=== PATIENT | female | born 1940 | race Caucasian/White ===

== ENCOUNTER → 2016-12-21 | Outpatient (CLI) | payer MEDICARE, OTHER ==
[2016-12-21 13:17] LABS: Calcium 11.3 mg/dL (8.4-10.2)
== END | disposition home or self-care (01) ==
LOC: LABWHC1 12:00
PROVIDERS: ATTEND Surgery
DX: E21.3 Hyperparathyroidism, unspecified (principal)
CPT/HCPCS: 36415; 82306; 82310; 83970; 84439; 84443

== ENCOUNTER → 2016-12-26 | Outpatient (CLI) | payer MEDICARE, OTHER ==
--- NOTE | 2016-12-26 09:30 | US ---
EXAMINATION TYPE: US thyroid st tissue head/neck DATE OF EXAM: 12/26/2016 9:00 AM COMPARISON: Chest CT December 18, 2011. CLINICAL HISTORY: E21.3 hyperparathyroidism. Hyperparathyroidism GLAND SIZE: Right Lobe: 4.5 x 2.2 x 1.6 cm Overall Parenchyma: heterogenous Left Lobe: 4.0 x 1.3 x 1.7 cm Overall Parenchyma: heterogeneous Isthmus Thickness: 0.3 cm NODULES RIGHT: # of nodules measured on right: 1. 0.7 X 0.5 x 0.6 cm isoechoic solid nodule at the upper pole with well-defined margins; This nodu le is wider than tall and shows intranodular vascularity. Prior size: No prior 2. 0.7 X 0.5 x 0.6 cm isoechoic solid nodule at the mid pole with poorly defined margins; This nodul e is wider than tall and shows intranodular vascularity. Prior size: No prior LEFT: # of nodules measured on left: Small, sub-centimeter (4mm) nodule on left ISTHMUS: # of nodules measured in the isthmus: 0 TECHNOLOGIST IMPRESSION: Bilateral neck scanned, no abnormal lymphadenopathy noted/ Two nodules on r ight, small sub-centimeter (4mm) nodules on left Thyroid gland is normal in size and overall heterogeneous in appearance. 2 adjacent solid nodules in the right thyroid lobe identified measuring subcentimeter in size. Smaller nodules in left thyroid lo be are 4 mm or smaller in size. Scanning of bilateral neck shows no suspicious adenopathy. No suspici ous solid lesions are identified outside the thyroid bed. IMPRESSION: Thyroid gland is normal in size and heterogeneous appearance, but there are no greater than 1 cm la d or cystic nodules identified. No suspicious extra thyroid nodules are seen to suggest parathyroid a denoma.
--- NOTE | 2016-12-26 14:25 | NM ---
EXAMINATION TYPE: NM parathyroid w/spect DATE OF EXAM: 12/26/2016 1:19 PM COMPARISON: Same day thyroid ultrasound HISTORY: Hyperparathyroidism per order TECHNIQUE: Following administration of 22.5 mCi Tc99m Sestamibi. Anterior projection images of the neck and ches t were obtained 10 minutes and 3 hours post injection. SPECT images of the neck and chest were obtai nhung and reconstructed in three axes. FINDINGS: Thyroid tracer washout: Delayed images demonstrate complete tracer washout from the thyroid. Parathyroid uptake: None. The two-hour delayed images do not demonstrate any focal abnormal persisten t uptake in the region of the parathyroid glands to suggest parathyroid adenoma. Normal uptake: There is physiological tracer uptake in the visualized salivary glands and thyroid gla nd. IMPRESSION: Normal parathyroid imaging study. No evidence for mediastinal uptake to suggest parathyroid adenoma
== END | disposition home or self-care (01) ==
LOC: RADUSMAIN 08:40
PROVIDERS: ATTEND Surgery
DX: E21.3 Hyperparathyroidism, unspecified (principal)
CPT/HCPCS: 76536; 78071; A9500

== ENCOUNTER 2017-02-20 07:50 | Day surgery (SDC) | payer MEDICARE, MEDICAID ==
[2017-02-16 15:29] VITALS: BMI 17.7
[~2017-02-20 07:50] MED LIST: DEXAMETHASONE SOD PHOSPHATE 10 MG/ML 1 ML VIAL IV ONE; HEPARIN SODIUM,PORCINE 5,000 UNIT/ML 1 ML VIAL SQ ONE; HYDROmorphone 1 MG/ML 1 ML SYRINGE IVP PRN; LACTATED RINGERS 1,000 ML IV SCH; LIDOCAINE 1% 20 ML VIAL (10MG/ML) FOR IV START INTRADERMA PRN; MIDAZOLAM 2 MG/2 ML VIAL IV PRN; Pre Op ABX Message 1 EACH MISC MISCELLANE ONE; SCOPOLAMINE 1.5MG/72HR PATCH TRANSDERM ONE
[2017-02-20] MEDS: ONDANSETRON 4 MG/2 ML VIAL IVP ONE ×2 (08:46→12:42)
[2017-02-20] MEDS ORDERED: MIDAZOLAM 2 MG/2 ML VIAL ONE (09:23)
[2017-02-20] MEDS ORDERED: LIDOCAINE 1% INJ 10MG/ML (20 ML MDV) ONE (09:23)
[2017-02-20] MEDS ORDERED: SUCCINYLCHOLINE CHLORIDE 100 MG/5 ML SYR IV ONE (09:23)
[2017-02-20] MEDS ORDERED: fentaNYL (PF) 50 MCG/ML 2 ML AMP ONE (09:23)
[2017-02-20] MEDS ORDERED: ePHEDrine 50 MG/ML 1 ML AMP ONE (09:23)
[2017-02-20] MEDS ORDERED: PROPOFOL 10 MG/ML 20 ML VIAL IV ONE (09:23)
[2017-02-20] MEDS ORDERED: HEPARIN SODIUM,PORCINE 5,000 UNIT/ML 1 ML VIAL SQ ONE (09:24)
[2017-02-20] MEDS ORDERED: GELATIN SPONGE,ABSORB (LARGE) 1 EACH SPONGE MISCELLANE ONE (10:58)
[2017-02-20] MEDS ORDERED: THROMBIN (BOVINE) 5,000 UNIT VIAL MISCELLANE ONE (10:58)
[2017-02-20] MEDS ORDERED: LACTATED RINGERS 1,000 ML IV ONE (11:14)
--- NOTE | 2017-02-20 11:37 | P.OP ---
Date of Procedure: 02/20/17 Preoperative Diagnosis: Primary hyperparathyroidism Postoperative Diagnosis: Same right inferior pole parathyroid hyperplasia/adenoma Procedure(s) Performed: Neck exploration and resection of right inferior parathyroid gland, biopsy left inferior parathyroid, identification of bilateral superior parathyroids Anesthesia: JERARDO Surgeon: Eden Ortiz Estimated Blood Loss (ml): 5 IV fluids (ml): 850 Pathology: other (Left inferior parathyroid biopsy, right inferior parathyroid biopsy and removal of the gland) Condition: stable Disposition: PACU Indications for Procedure: Primary hyperparathyroidism with osteoporosis Operative Findings: Enlarged right inferior parathyroid gland Description of Procedure: The patient is a 76-year-old white female with a diagnosis of primary hyperparathyroidism. She has elevated calcium and parathyroid hormone. Additionally she has osteoporosis. The patient was taken to the operating room for a neck exploration possible parathyroid resection. Following induction of general anesthesia the neck was prepped and draped in a sterile fashion. The patient was placed in a modified beach chair position with some Trendelenburg. Prior to prepping and draping the patient. The nerve stimulator probes were placed. Following this after the neck and then prepped and draped in a collar incision was made. This was carried down through the skin and subcutaneous tissue as well as the platysma. Superior and inferior skin flaps were developed. The strap muscles were in the midline. The right lobe of the thyroid was approached initially. The lobe was rotated medially. It was necessary to ligate the inferior thyroid vessels in order to facilitate this. The recurrent laryngeal nerve was identified. The superior parathyroid was very small and identified. The right inferior parathyroid was enlarged and was approximately 1.5 x 2 cm in size. This was biopsied and was consistent with a hypercellular parathyroid tissue. Following this the left side of the neck was approached. The lobe was rotated medially and we were able to identify what was believed to be superior and inferior parathyroids. The inferior parathyroid was biopsied and confirmed to be parathyroid tissue. The current laryngeal nerve was identified on this side as well. The remaining parathyroids were very small and the right inferior parathyroid gland was resected. After assured that hemostasis was attained a [place] drain was placed. The strap muscles were closed in the midline. The platysma was closed with a 3- 0 Vicryl. All instrument and sponge counts were correct at the end of the case. The patient tolerated the procedure in stable condition. The skin was closed using a 4-0 Monocryl.
[2017-02-20] MEDS ORDERED: HYDROcodone/APAP 5-325MG 1 EACH TAB PO PRN (11:38)
[2017-02-20] MEDS ORDERED: NALOXONE 0.4 MG/ML 1 ML VIAL IV PRN (11:38)
[2017-02-20] MEDS ORDERED: hydrALAZINE HCL 20 MG/ML 1 ML VIAL IVP ONE (12:14)
[2017-02-20] MEDS: HYDROmorphone 1 MG/ML 1 ML SYRINGE IV PRN ×2 (18:58→22:21)
[2017-02-20] MEDS: ONDANSETRON 4 MG/2 ML VIAL IVP PRN (20:12)
[2017-02-20] MEDS: DEXTROSE 5%-0.45% NACL 1,000 ML IV SCH (21:36)
[2017-02-20] MEDS: HEPARIN SODIUM,PORCINE 5,000 UNIT/ML 1 ML VIAL SQ SCH (21:36)
[2017-02-21] MEDS: HYDROmorphone 1 MG/ML 1 ML SYRINGE IV PRN (05:30)
[2017-02-21 08:22] LABS: ALT 26 U/L (9-52); AST 19 U/L (14-36); Alkaline Phosphatase 65 U/L (38-126); Anion Gap 8 mmol/L; Blood Urea Nitrogen 24 mg/dL (7-17); Calcium 8.9 mg/dL (8.4-10.2); Carbon Dioxide 21 mmol/L (22-30); Chloride 104 mmol/L (98-107); Glucose 124 mg/dL (74-99); Non-African American GFR(MDRD) >60 (>60 ml/min/1.73 sqM); Potassium 3.9 mmol/L (3.5-5.1); Sodium 133 mmol/L (137-145); Total Bilirubin 0.6 mg/dL (0.2-1.3); Total Protein 5.5 g/dL (6.3-8.2)
[2017-02-21] MEDS: ONDANSETRON 4 MG/2 ML VIAL IVP PRN (09:45)
[2017-02-21] MEDS: HEPARIN SODIUM,PORCINE 5,000 UNIT/ML 1 ML VIAL SQ SCH ×2 (09:50→21:46)
--- NOTE | 2017-02-21 11:54 | P.PN ---
Subjective 76 year old female being seen with the attending on rounds. Patient currently is sitting up in a chair. Patient reports having nausea sensation. Patient is postop Neck exploration and resection of right inferior parathyroid gland, biopsy left inferior parathyroid, identification of bilateral superior parathyroids Indications for the procedure primary hyperparathyroidism with osteoporosis Objective - Vital Signs Vital signs: Vital Signs Temp 99.2 F 02/21/17 08:30 Pulse 82 02/21/17 08:30 Resp 24 02/21/17 08:30 BP 110/74 02/21/17 10:15 Pulse Ox 96 02/21/17 08:30 Intake & Output 02/20/17 02/21/17 02/21/17 18:59 06:59 18:59 Intake Total 9315 111 1518 Output Total 445 675 Balance 205 852 3597 Intake: IV 1200 800 Lactated Ringers 1,000 ml 800 @ 20 mls/hr IV .Q24H RUPA Rx#:[id number] Intake, IV Titration 960 Amount Dextrose 5%-0.45% NaCl 1, 960 000 ml @ 100 mls/hr IV . Q10H RUPA Rx#:[id number] Oral 150 Output: Urine 440 550 Emesis 125 Estimated Blood Loss 5 Other: Voiding Method Toilet # Voids 1 1 # Emeses 1 - Exam Physical exam Pleasant alert oriented 3 no hoarseness noted to the voice Lungs essentially clear adequate air movement on room air Heart S1-S2 audible regular Abdomen soft nontender active bowel tones reports a sensation of nausea no active emesis Extremities no edema noted Neck [place] drain removed no edema dressing dry - Labs CBC & Chem 7: 02/21/17 05:48 Labs: Abnormal Lab Results - Last 24 Hours (Table) 02/20/17 02/20/17 02/21/17 Range/Units 12:05 12:05 05:48 Sodium 133 L (137-145) mmol/L Carbon Dioxide 21 L (22-30) mmol/L BUN 24 H (7-17) mg/dL Glucose 124 H (74-99) mg/dL Calcium 10.3 H (8.4-10.2) mg/dL Total Protein 5.5 L (6.3-8.2) g/dL Albumin 3.0 L (3.5-5.0) g/dL PTH Intact <5.5 L (14.0-72.0) pg/mL Assessment and Plan Plan: Impression Primary hyperparathyroidism with osteoporosis Neck exploration and resection of right inferior parathyroid gland, biopsy left inferior parathyroid, identification of bilateral superior parathyroids done on February 20 Right inferior pole parathyroid hyperplasia/adenoma Plan Repeat a calcium at noon and 8:00 tonight notify the attending if it's less than 8.5 Await endocrinology input Continue postop surgical care Stop IV pain medication continue oral [place] Diet to be advanced as tolerated DVT and GI prophylaxis Probable discharge in the next 24 hours The above dictated assessment and findings were discussed with dr loza . Impression and the plan of care have been dictated as directed. Jena Marie nurse practitioner acting as a scribe for dr loza
--- NOTE | 2017-02-21 12:28 | P.CNEND ---
History of Present Illness Consult date: 02/21/17 History of present illness: Patient's 76-year-old female who has history of primary hyperparathyroidism and osteoporosis. She underwent neck exploration and resection of right inferior parathyroid adenoma. Patient is recovering from surgery well. Complains of mild pain in the anterior part of the neck. Patient complains of nausea Denies any numbness tingling muscle cramps. Patient is currently not taking any calcium supplementation. Review of Systems All systems: negative Constitutional: Reports as per HPI Eyes: denies blurred vision, denies pain Ears, nose, mouth and throat: Denies headache, Denies sore throat Cardiovascular: Denies chest pain, Denies shortness of breath Respiratory: Denies cough Gastrointestinal: Denies abdominal pain, Denies diarrhea, Denies nausea, Denies vomiting Genitourinary: Denies dysuria, Denies hematuria Musculoskeletal: Denies myalgias Integumentary: Denies pruritus, Denies rash Neurological: Denies numbness, Denies weakness Psychiatric: Denies anxiety, Denies depression Endocrine: Denies fatigue, Denies weight change Past Medical History Past Medical History: Hearing Disorder / Deafness, Hypertension Additional Past Medical History / Comment(s): Osteoporosis History of Any Multi-Drug Resistant Organisms: None Reported Past Surgical History: Bowel Resection, Section, Orthopedic Surgery Additional Past Surgical History / Comment(s): L elbow surgery. COLONOSCOPY Past Anesthesia/Blood Transfusion Reactions: Previous Problems w/ Anesthesia, Postoperative Nausea & Vomiting (PONV) Additional Past Anesthesia/Blood Transfusion Reaction / Comment(s): HYPER FEELING AFTER SURGERY SOMETIMES WITH ANESTHESIA Past Psychological History: No Psychological Hx Reported Smoking Status: Current every day smoker Past Alcohol Use History: Rare Past Drug Use History: None Reported Additional Drug Use History / Comment(s): Smokes 1 cigarette per day. - Past Family History Father Family Medical History: Cancer Mother Family Medical History: No Reported History Medications and Allergies Home Medications Medication Instructions Recorded Confirmed Type Alendronate Sodium 70 mg PO Q7DAYS 07/14/14 02/16/17 History Aspirin 81 mg PO DAILY 07/14/14 02/16/17 History Hydrochlorothiazide [Hydrodiuril] 12.5 mg PO DAILY 07/14/14 02/16/17 History Lisinopril [Prinivil] 5 mg PO DAILY 07/14/14 02/16/17 History Nadolol [Corgard] 20 mg PO DAILY 07/14/14 02/16/17 History Allergies Allergy/AdvReac Type Severity Reaction Status Date / Time No Known Allergies Allergy Verified 02/20/17 13:35 Physical Exam Vitals: Vital Signs Temp Pulse Pulse Resp BP BP Pulse Ox 02/21/17 10:15 110/74 158/80 02/21/17 08:30 99.2 F 82 24 96 02/21/17 02:00 98.5 F 82 20 138/68 96 02/20/17 20:50 97.6 F 82 20 148/72 95 02/20/17 17:06 97.0 F L 73 16 139/69 97 02/20/17 16:25 97 02/20/17 16:06 72 16 126/66 96 02/20/17 15:06 72 16 145/72 96 02/20/17 14:36 70 16 151/73 97 02/20/17 14:06 76 16 150/69 99 02/20/17 13:51 72 16 146/70 98 02/20/17 13:36 77 16 135/87 98 02/20/17 13:21 97.0 F L 76 16 152/73 97 02/20/17 12:45 78 16 148/67 99 02/20/17 12:30 81 16 151/62 99 02/20/17 12:22 74 16 162/73 99 Intake and Output 02/20/17 02/21/17 02/21/17 22:59 06:59 14:59 Intake Total 800 1110 Output Total 425 550 Balance 375 -550 1110 Intake: IV 800 Lactated Ringers 1,000 ml 800 @ 20 mls/hr IV .Q24H RUPA Rx#:[id number] Intake, IV Titration 960 Amount Dextrose 5%-0.45% NaCl 1, 960 000 ml @ 100 mls/hr IV . Q10H RUPA Rx#:[id number] Oral 150 Output: Urine 300 550 Emesis 125 Other: Voiding Method Toilet # Voids 1 1 # Emeses 1 - Constitutional General appearance: no acute distress - EENT Eyes: EOMI - Neck Neck: no lymphadenopathy - Respiratory Respiratory: bilateral: CTA - Cardiovascular Heart sounds: normal: S1, S2 - Gastrointestinal General gastrointestinal: no organomegaly, soft, no tenderness - Neurologic Neurologic: CNII-XII intact - Psychiatric Psychiatric: A&O x's 3, intact judgment & insight Results - Labs Result Diagrams: 02/21/17 05:48 Abnormal Lab Results - Last 24 Hours (Table) 02/20/17 02/20/17 02/21/17 Range/Units 12:05 12:05 05:48 Sodium 133 L (137-145) mmol/L Carbon Dioxide 21 L (22-30) mmol/L BUN 24 H (7-17) mg/dL Glucose 124 H (74-99) mg/dL Calcium 10.3 H (8.4-10.2) mg/dL Total Protein 5.5 L (6.3-8.2) g/dL Albumin 3.0 L (3.5-5.0) g/dL PTH Intact <5.5 L (14.0-72.0) pg/mL Diabetes panel 02/20/17 02/20/17 02/21/17 Range/Units 12:05 19:54 05:48 Sodium (137-145) mmol/L Potassium (3.5-5.1) mmol/L Chloride (98-107) mmol/L Carbon Dioxide (22-30) mmol/L BUN (7-17) mg/dL Creatinine (0.52-1.04) mg/dL Glucose (74-99) mg/dL Calcium 10.3 H 10.0 9.0 (8.4-10.2) mg/dL AST (14-36) U/L ALT (9-52) U/L Alkaline Phosphatase (38-126) U/L Total Protein (6.3-8.2) g/dL Albumin (3.5-5.0) g/dL 02/21/17 Range/Units 05:48 Sodium 133 L (137-145) mmol/L Potassium 3.9 (3.5-5.1) mmol/L Chloride 104 (98-107) mmol/L Carbon Dioxide 21 L (22-30) mmol/L BUN 24 H (7-17) mg/dL Creatinine 0.79 (0.52-1.04) mg/dL Glucose 124 H (74-99) mg/dL Calcium 8.9 (8.4-10.2) mg/dL AST 19 (14-36) U/L ALT 26 (9-52) U/L Alkaline Phosphatase 65 (38-126) U/L Total Protein 5.5 L (6.3-8.2) g/dL Albumin 3.0 L (3.5-5.0) g/dL Calcium panel 02/20/17 02/20/17 02/21/17 Range/Units 12:05 19:54 05:48 Calcium 10.3 H 10.0 9.0 (8.4-10.2) mg/dL Albumin (3.5-5.0) g/dL 02/21/17 Range/Units 05:48 Calcium 8.9 (8.4-10.2) mg/dL Albumin 3.0 L (3.5-5.0) g/dL Pituitary panel 02/20/17 02/20/17 02/21/17 Range/Units 12: 19:54 05:48 Sodium (137-145) mmol/L Potassium (3.5-5.1) mmol/L Chloride (98-107) mmol/L Carbon Dioxide (22-30) mmol/L BUN (7-17) mg/dL Creatinine (0.52-1.04) mg/dL Glucose (74-99) mg/dL Calcium 10.3 H 10.0 9.0 (8.4-10.2) mg/dL 02/21/17 Range/Units 05:48 Sodium 133 L (137-145) mmol/L Potassium 3.9 (3.5-5.1) mmol/L Chloride 104 (98-107) mmol/L Carbon Dioxide 21 L (22-30) mmol/L BUN 24 H (7-17) mg/dL Creatinine 0.79 (0.52-1.04) mg/dL Glucose 124 H (74-99) mg/dL Calcium 8.9 (8.4-10.2) mg/dL Adrenal panel 02/20/17 02/20/17 02/21/17 Range/Units 12:05 19:54 05:48 Sodium (137-145) mmol/L Potassium (3.5-5.1) mmol/L Chloride (98-107) mmol/L Carbon Dioxide (22-30) mmol/L BUN (7-17) mg/dL Creatinine (0.52-1.04) mg/dL Glucose (74-99) mg/dL Calcium 10.3 H 10.0 9.0 (8.4-10.2) mg/dL Total Bilirubin (0.2-1.3) mg/dL AST (14-36) U/L ALT (9-52) U/L Alkaline Phosphatase (38-126) U/L Total Protein (6.3-8.2) g/dL Albumin (3.5-5.0) g/dL /01/05 Range/Units 05:48 Sodium 133 L (137-145) mmol/L Potassium 3.9 (3.5-5.1) mmol/L Chloride 104 (98-107) mmol/L Carbon Dioxide 21 L (22-30) mmol/L BUN 24 H (7-17) mg/dL Creatinine 0.79 (0.52-1.04) mg/dL Glucose 124 H (74-99) mg/dL Calcium 8.9 (8.4-10.2) mg/dL Total Bilirubin 0.6 (0.2-1.3) mg/dL AST 19 (14-36) U/L ALT 26 (9-52) U/L Alkaline Phosphatase 65 (38-126) U/L Total Protein 5.5 L (6.3-8.2) g/dL Albumin 3.0 L (3.5-5.0) g/dL Assessment and Plan (1) Primary hyperparathyroidism Status: Acute Plan: Patient with history of primary hyperparathyroidism who underwent surgery and right inferior parathyroid gland was removed. Patient is recovering well from surgery except for nausea. PTH level postoperatively was less than 5 however that was in the immediate postoperative period. Patient serum calcium have been completely within normal range. Patient does not have any symptoms of hypocalcemia Since patient has severe nausea and her serum calcium levels have been normal I would recommend holding off oral calcium supplementation for now. Repeat PTH level along with calcium and albumin Patient was counseled about signs and symptoms of hypocalcemia. Thank you for letting me participate in patient care. We'll follow-up patient Time with Patient: Greater than 30
[2017-02-21] MEDS: CALCIUM CARB-VIT D 500MG-200UN 1 EACH TAB PO SCH ×2 (13:43→19:44)
[2017-02-21] MEDS: DEXTROSE 5%-0.45% NACL 1,000 ML IV SCH (13:55)
[2017-02-21] MEDS: ACETAMINOPHEN TAB 325 MG TAB PO PRN (20:16)
[2017-02-21 20:38] LABS: Calcium 9.3 mg/dL (8.4-10.2)
[2017-02-22] MEDS: DEXTROSE 5%-0.45% NACL 1,000 ML IV SCH ×3 (00:57→05:18)
[2017-02-22 02:32] VITALS: RESP 20
[2017-02-22] MEDS: ACETAMINOPHEN TAB 325 MG TAB PO PRN (05:11)
[2017-02-22] MEDS: CALCIUM CARB-VIT D 500MG-200UN 1 EACH TAB PO SCH ×2 (08:19→14:06)
[2017-02-22 08:23] VITALS: BP 122/70; PULSE 76
[2017-02-22 08:54] VITALS: TEMP 97.2
[2017-02-22] MEDS: HEPARIN SODIUM,PORCINE 5,000 UNIT/ML 1 ML VIAL SQ SCH (09:45)
--- NOTE | 2017-02-22 13:15 | P.DS ---
Providers Expected date of discharge: 02/22/17 Attending physician: Eden Ortiz Consults: 02/20/17 11:43 Consult Physician Routine Consulting Provider: Ashley Fuentes Consult Reason/Comments: Parathyroid resection hyperparathyroidism Do you want consulting provider notified?: Yes Primary care physician: [facility] Course: A 76-year-old female presented on elective basis to undergo surgery for primary hyperparathyroidism. Patient underwent neck excoriation and resection of the right inferior parathyroid adenoma. Patient does have a history of hyperparathyroidism and osteoporosis. Patient was not taking any current calcium supplements. Patient was admitted underwent the surgery on the February 20. Patient was followed by paper production engineer Dr. Fuentes. Calcium level and parathyroid levels were monitored. Postop patient did develop postop nausea which was expected and did resolve. There were no other postop events the patient was discharged on February 22 Impression Primary hyperparathyroidism with osteoporosis Neck exploration and resection of right inferior parathyroid gland, biopsy left inferior parathyroid, identification of bilateral superior parathyroids done on February 20 Right inferior pole parathyroid hyperplasia/adenoma Postop nausea vomiting expected resolved The above dictated assessment and findings were discussed with dr loza . Impression and the plan of care have been dictated as directed. Jena Marie nurse practitioner acting as a scribe for dr loza Plan - Discharge Summary New Discharge Prescriptions: Calcium Carb-Vit D 500Mg-200Un [Oscal 500+D] 1 each PO TID-W/MEALS #90 tab Discharge Medication List Alendronate Sodium 70 mg PO Q7DAYS 07/14/14 [History] Aspirin 81 mg PO DAILY 07/14/14 [History] Hydrochlorothiazide [Hydrodiuril] 12.5 mg PO DAILY 07/14/14 [History] Lisinopril [Prinivil] 5 mg PO DAILY 07/14/14 [History] Nadolol [Corgard] 20 mg PO DAILY 07/14/14 [History] Calcium Carb-Vit D 500Mg-200Un [Oscal 500+D] 1 each PO TID-W/MEALS #90 tab 02/22 [Rx] Follow up Appointment(s)/Referral(s): Eden Ortiz MD [STAFF PHYSICIAN] - 03/01/17 1:00 pm Ashley Fuentes MD [STAFF PHYSICIAN] - 03/05/17 9:00 am (You have an appointment with Dr Ashley Fuentes on Sunday, March 05, 2017 at 9:00 am.) Patient Instructions/Handouts: Parathyroidectomy (DC) Activity/Diet/Wound Care/Special Instructions: regular diet at home as tolerated, drink fluids. call office with any fever, chills,or increased pain , redness or discolored drainage from incision or any questions. If any numbness or tingling.or difficulty swallowing return to Emergency dept per Dr Ian Nunez no Strenuous activity. Take 1 tab of Oscal three times a day per Dr Fuentes until parathyroid level comes back, Dr will contact you. Discharge Disposition: HOME SELF-CARE
== END 2017-02-22 13:59 | disposition home or self-care (01) ==
LOC: OR 07:50 → 6PED 11:27 → OR 02-22 13:59
PROVIDERS: ATTEND Surgery
DX: D35.1 Benign neoplasm of parathyroid gland (principal); E21.0 Primary hyperparathyroidism; M81.0 Age-related osteoporosis without current pathological fracture; I10 Essential (primary) hypertension; F17.210 Nicotine dependence, cigarettes, uncomplicated; Z79.82 Long term (current) use of aspirin; Z79.899 Other long term (current) drug therapy
CPT/HCPCS: 88305; 80053; 82040; 82310 ×3; 88331; 83970 ×2; 60500; J2250; J0360; J1644 ×3; J1100; J2405 ×2; J2001; J3010; J1170 ×2; J0330; J2704

== ENCOUNTER → 2017-03-05 | Outpatient (CLI) | payer MEDICARE, MEDICAID ==
[2017-03-05 11:13] LABS: ALT 29 U/L (9-52); AST 20 U/L (14-36); Alkaline Phosphatase 82 U/L (38-126); Anion Gap 10 mmol/L; Blood Urea Nitrogen 35 mg/dL (7-17); Calcium 10.8 mg/dL (8.4-10.2); Carbon Dioxide 27 mmol/L (22-30); Chloride 99 mmol/L (98-107); Glucose 91 mg/dL (74-99); Non-African American GFR(MDRD) >60 (>60 ml/min/1.73 sqM); Potassium 4.7 mmol/L (3.5-5.1); Sodium 136 mmol/L (137-145); Total Bilirubin 0.6 mg/dL (0.2-1.3); Total Protein 6.6 g/dL (6.3-8.2)
== END | disposition home or self-care (01) ==
LOC: LABWHC1 10:12
PROVIDERS: ATTEND Internal Medicine Endocrinology, Diabetes & Metabolism
DX: E21.0 Primary hyperparathyroidism (principal); M81.8 Other osteoporosis without current pathological fracture
CPT/HCPCS: 36415; 80053; 82306; 83970; 84443

== ENCOUNTER → 2017-04-05 | Outpatient (CLI) | payer MEDICARE, MEDICAID ==
[2017-04-05 09:33] LABS: ALT 29 U/L (9-52); AST 21 U/L (14-36); Alkaline Phosphatase 74 U/L (38-126); Anion Gap 10 mmol/L; Blood Urea Nitrogen 27 mg/dL (7-17); Calcium 9.5 mg/dL (8.4-10.2); Carbon Dioxide 24 mmol/L (22-30); Chloride 102 mmol/L (98-107); Glucose 82 mg/dL (74-99); Non-African American GFR(MDRD) >60 (>60 ml/min/1.73 sqM); Potassium 4.3 mmol/L (3.5-5.1); Sodium 136 mmol/L (137-145); Total Bilirubin 0.6 mg/dL (0.2-1.3); Total Protein 6.7 g/dL (6.3-8.2)
== END | disposition home or self-care (01) ==
LOC: LABWHC1 08:13
PROVIDERS: ATTEND Internal Medicine Endocrinology, Diabetes & Metabolism
DX: E21.0 Primary hyperparathyroidism (principal); M81.8 Other osteoporosis without current pathological fracture
CPT/HCPCS: 36415; 80053; 82306; 83970; 84443

== ENCOUNTER → 2017-07-17 | Outpatient (CLI) | payer MEDICARE, MEDICAID ==
--- NOTE | 2017-07-17 11:20 | MM ---
Reason for exam: screening (asymptomatic). Last mammogram was performed 1 year and 1 month ago. History: Patient is postmenopausal. Took estrogen for 6 years. Took progesterone for 6 years. Physical Findings: A clinical breast exam by your physician is recommended on an annual basis and results should be correlated with mammographic findings. MG Screening Mammo w CAD Bilateral CC and MLO view(s) were taken. Prior study comparison: June 14, 2016, bilateral MG screening mammo w CAD. May 22, 2014, bilateral MG screening mammo w CAD. The breast tissue is extremely dense which could obscure a lesion on mammography. Finding: There are typically benign vascular, round calcifications in both breasts. There is no discrete abnormality. ASSESSMENT: Benign, BI-RAD 2 RECOMMENDATION: Routine screening mammogram of both breasts in 1 year.
== END | disposition home or self-care (01) ==
LOC: RADMAMWWP 07:33
PROVIDERS: ATTEND Internal Medicine
DX: Z12.31 Encounter for screening mammogram for malignant neoplasm of breast (principal)

== ENCOUNTER → 2018-04-11 | Outpatient (CLI) | payer MEDICARE, MEDICAID ==
[2018-04-11 11:22] LABS: Albumin 4.1 g/dL (3.5-5.0); Calcium 9.8 mg/dL (8.4-10.2); Potassium 4.6 mmol/L (3.5-5.1); Total Bilirubin 0.5 mg/dL (0.2-1.3); Total Protein 6.5 g/dL (6.3-8.2)
[2018-04-11 16:17] LABS: Vitamin D 25 Hydroxy 50.1 ng/mL (30.0-100.0)
[2018-04-11 17:01] LABS: Parathyroid Hormone Intact 35.3 pg/mL (14.0-72.0)
== END | disposition home or self-care (01) ==
LOC: LABWHC1 10:09
PROVIDERS: ATTEND Internal Medicine Endocrinology, Diabetes & Metabolism
DX: E21.0 Primary hyperparathyroidism (principal)
CPT/HCPCS: 36415; 80053; 82306; 83970

== ENCOUNTER → 2018-07-31 | Outpatient (CLI) | payer MEDICARE, MEDICAID ==
--- NOTE | 2018-08-01 08:55 | MM ---
Reason for exam: screening (asymptomatic). Last mammogram was performed 1 year ago. History: Patient is postmenopausal. Took estrogen for 6 years. Took progesterone for 6 years. Physical Findings: A clinical breast exam by your physician is recommended on an annual basis and results should be correlated with mammographic findings. MG Screening Mammo w CAD Bilateral CC and MLO view(s) were taken. Prior study comparison: July 17, 2017, bilateral MG screening mammo w CAD. June 14, 2016, bilateral MG screening mammo w CAD. The breast tissue is extremely dense which could obscure a lesion on mammography. There are benign appearing round calcifications bilaterally. No suspicious abnormality. No significant changes when compared with prior studies. ASSESSMENT: Benign, BI-RAD 2 RECOMMENDATION: Routine screening mammogram of both breasts in 1 year.
== END | disposition home or self-care (01) ==
LOC: RADMAMWWP 08:14
PROVIDERS: ATTEND Internal Medicine
DX: Z12.31 Encounter for screening mammogram for malignant neoplasm of breast (principal)
CPT/HCPCS: 77067

== ENCOUNTER → 2020-11-12 | Outpatient (CLI) | payer MEDICARE, MEDICAID ==
--- NOTE | 2020-11-15 09:30 | MM ---
Reason for exam: screening (asymptomatic). Last mammogram was performed 2 years and 3 months ago. History: Patient is postmenopausal. Took estrogen for 6 years. Took progesterone for 6 years. Physical Findings: A clinical breast exam by your physician is recommended on an annual basis and results should be correlated with mammographic findings. MG Screening Mammo w CAD Bilateral CC and MLO view(s) were taken. Prior study comparison: July 31, 2018, bilateral MG screening mammo w CAD. July 17, 2017, bilateral MG screening mammo w CAD. The breast tissue is extremely dense which could obscure a lesion on mammography. Stable benign calcifications. There is chronic nodularity bilaterally. There is no dominant lesion. No significant changes when compared with prior studies. ASSESSMENT: Benign, BI-RAD 2 RECOMMENDATION: Routine screening mammogram of both breasts in 1 year.
== END | disposition home or self-care (01) ==
LOC: RADMAMWWP 09:14
PROVIDERS: ATTEND Family Medicine
DX: Z12.31 Encounter for screening mammogram for malignant neoplasm of breast (principal)
CPT/HCPCS: 77067

== ENCOUNTER → 2022-05-01 | Outpatient (CLI) | payer MEDICARE, MEDICAID ==
--- NOTE | 2022-05-01 14:12 | BD ---
EXAMINATION TYPE: Axial Bone Density DATE OF EXAM: 05/01/2022 COMPARISON: 06/14/2016 CLINICAL HISTORY: 81 years year old Female. ICD-10 CODE: M81.0 Age related osteoporosis Height: 58.5 IN Weight: 92 LBS FRAX RISK QUESTIONS: Current Tobacco Use: YES RISK FACTORS HISTORY OF: Family History of Osteoporosis: YES MOTHER Active: MODERATE Postmenopausal woman: AGE 60 Take estrogen and/or progesterone medications: NOT NOW How long: AGE 60-65 Lost more than 2 inches in height since high school: YES 10/23" MEDICATIONS: Additional Medications: VIT D, BLOOD PRESSURE MEDS, CHOLESTEROL MEDS, LOW DOSE ASPIRIN Additional History: EXAM MEASUREMENTS: Bone mineral densitometry was performed using the ZIRX System. Bone mineral density as measured about the Lumbar spine is: ----- L1-L4(G/cm2): 1.816 T Score Values are as follows: ----- L1: 4.5 ----- L2: 5.9 ----- L3: 5.7 ----- L4: 5.2 ----- L1-L4: 5.3 Bone mineral density has: Increased 5.3% since study of: 06/14/2016 Bone mineral density about the R hip (g/cm2): 0.788 Bone mineral density about the L hip (g/cm2): 0.794 T Score values are as follows: -----R Neck: -1.8 -----L Neck: -1.8 -----R Total: -2.0 -----L Total: -2.1 Bone mineral density has: Decreased -3.7% since study of: 06/14/2016 FRAX%s: The graph provided illustrates a 12.6 chance for a major osteoporotic fx and a 5.6 chance for the hips probability for fx in 10 years time. IMPRESSION: Osteopenia (T Score between -2.5 and -1) remains present. There is slightly increased risk of fracture and the patient may be considered for treatment. Re-Screen 2-5 years. NOTE: T-SCORE=SD OF THE YOUNG ADULT MEAN.
== END | disposition home or self-care (01) ==
LOC: RADBDWWP 12:23
PROVIDERS: ATTEND Internal Medicine
DX: M85.89 Other specified disorders of bone density and structure, multiple sites (principal); Z78.0 Asymptomatic menopausal state
CPT/HCPCS: 77080

== ENCOUNTER → 2022-09-01 | Day surgery (SDC) | payer MEDICARE, MEDICAID ==
[~2022-09-01] MED LIST changes: +ALPRAZolam 0.25 MG TAB PO PRN; +ALPRAZolam 0.5 MG TAB PO PRN; +ASPIRIN 325 MG TAB PO PRN; -DEXAMETHASONE SOD PHOSPHATE 10 MG/ML 1 ML VIAL IV ONE; +HEPARIN SODIUM 1,000 UN/ML (10ML VL) IV ONE; +HEPARIN SODIUM,PORCINE 10,000 UNIT in SODIUM CHLORIDE 0.9% 1,000 ML IRRIGATION PRN; +HEPARIN SODIUM,PORCINE 2,500 UNIT in SODIUM CHLORIDE 0.9% 250 ML IRRIGATION PRN; -HEPARIN SODIUM,PORCINE 5,000 UNIT/ML 1 ML VIAL SQ ONE; -HYDROmorphone 1 MG/ML 1 ML SYRINGE IVP PRN; +IOPAMIDOL-370 100ML BTL INJ ONE; -LACTATED RINGERS 1,000 ML IV SCH; -LIDOCAINE 1% 20 ML VIAL (10MG/ML) FOR IV START INTRADERMA PRN; +LIDOCAINE 1% INJ 10MG/ML (30 ML VIAL-PF) SQ ONE; +MIDAZOLAM 2 MG/2 ML VIAL IV ONE; -MIDAZOLAM 2 MG/2 ML VIAL IV PRN; -Pre Op ABX Message 1 EACH MISC MISCELLANE ONE; -SCOPOLAMINE 1.5MG/72HR PATCH TRANSDERM ONE; +SODIUM CHLORIDE 0.9% 1,000 ML in EMPTY BAG 1 BAG IV ONE; +VERAPAMIL SYRINGE (5 MG/10 ML) INTRAARTER ONE; +ZOLPIDEM 5 MG TAB PO PRN; +fentaNYL (PF) 50 MCG/ML 2 ML AMP IV ONE
[2022-09-01 08:49] VITALS: RESP 16; TEMP 98.2
--- NOTE | 2022-09-01 12:19 | IR ---
EXAMINATION TYPE: IR angio abdominal w runoff DATE OF EXAM: 09/01/2022 COMPARISON: NONE HISTORY: Fluoroscopy time. Fluoroscopy was provided to the referring clinician.
[2022-09-01 16:02] VITALS: PULSE 70
[2022-09-01 16:10] VITALS: BP 86/54
--- NOTE | 2022-09-01 21:39 | P.OP ---
Description of Procedure: PROCEDURES PERFORMED: Abdominal angiography with bilateral runoff INDICATION: [facility] class 3 claudication, abnormal ultrasound/ALFIE CONSENT:I have discussed the risks, benefits and alternative therapies for the above-mentioned procedure and for both sedation/analgesia as well as necessary blood product administration, if indicated, as they pertain to this patient. The patient has indicated understanding and acceptance of the risks and procedures discussed. PROCEDURE: After the risks, benefits and alternatives of the above mentioned procedure explained in detail with the patient, informed consent was obtained. Patient was taken to the catheterization lab and prepped and draped in usual fashion. 1% lidocaine was used to anesthetize the right radial area. A 5- Kyrgyz sheath was placed in the right radial artery using modified Seldinger technique. A 5-Kyrgyz pigtail catheter was inserted to the abdominal aorta and DSA imaging was obtained. Patient tolerated the diagnostic portion well. The patient tolerated the procedure well. TR band was placed and sheath removed. Patient was transported back to the post catheterization holding area in stable condition. Conscious Sedation: Patient was monitored under the direct supervision of vision of myself for conscious sedation using Versed and fentanyl for a total duration of 25 minutes HEMODYNAMICS: Ao: 134/77 Abdominal aorta: The abdominal aorta has mild calcifcation and mild narrowing/ 30% stenosis of the infrarenal aorta. Renal arteries are patent. There is no significant aneurysm. Right lower extremity: Right common iliac artery: There is 100% proximal common iliac stenosis. Right external iliac artery: There is 100% stenosis. Right internal iliac artery: There is no significant stenosis. Right common femoral artery: There is what appears to be 100% right common femoral artery stenosis. Right profunda: There is no significant stenosis. Right SFA: There is no significant stenosis however SFA appears to be very small caliber. Right popliteal artery: There is no significant stenosis. Right tibioperoneal trunk: There is no significant stenosis. Right anterior tibial artery: There is no significant stenosis. Right porterior tibial artery: There is no significant stenosis. Right peroneal artery: There is no significant stenosis. Left lower extremity: Left common iliac artery: There is 90% proximal left common iliac stenosis. Left external iliac artery: The external iliac artery is normal. Left internal iliac artery: There is no significant stenosis. Left common femoral artery: There is no significant stenosis. Left profunda: There is no significant stenosis. Left SFA: There is no significant stenosis. Left popliteal artery: There is no significant stenosis. Left tibioperoneal trunk: There is no significant stenosis. Right anterior tibial artery: There is no significant stenosis. Right porterior tibial artery: There is no significant stenosis. Right peroneal artery: There is no significant stenosis. FINAL IMPRESSION: 1. 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 Somewhat sluggish flow of the distal aorta with some 30% narrowing. Rule out a descending dissection. PLAN: 1. Aggressive risk factor modification per most recent ACC/AHA guidelines. 2. Extensive heavily calcified inflow disease which appears better treated by surgical route. 3. Consider ultrasound abdomen to rule out dissection given some sluggish flow and some narrowing of the infrarenal aorta. Evaluate for any thrombus or dissection.
== END ==
LOC: CATHCVL 08:06
PROVIDERS: ATTEND Internal Medicine
DX: I73.9 Peripheral vascular disease, unspecified (principal); I70.8 Atherosclerosis of other arteries; I10 Essential (primary) hypertension; E78.5 Hyperlipidemia, unspecified; I44.7 Left bundle-branch block, unspecified; F17.210 Nicotine dependence, cigarettes, uncomplicated; Z79.82 Long term (current) use of aspirin
CPT/HCPCS: 36200; 75625; 75716; C1769 ×5; C1894 ×3; J2250; J2001; J3010; J1644; Q9967

== ENCOUNTER 2023-01-05 09:50 | Observation (INO) | payer MEDICARE, MEDICAID ==
[2023-01-05] MEDS ORDERED: ACETAMINOPHEN TAB 325 MG TAB PO STA (10:27)
[2023-01-05] MEDS ORDERED: ONDANSETRON 4 MG/2 ML VIAL IVP STA (10:58)
--- NOTE | 2023-01-05 11:00 | US ---
EXAMINATION TYPE: US venous doppler duplex LE LT DATE OF EXAM: 01/05/2023 10:54 AM COMPARISON: NONE CLINICAL HISTORY: pain. Pain SIDE PERFORMED: Left TECHNIQUE: The lower extremity deep venous system is examined utilizing real time linear array sonog june with graded compression, doppler sonography and color-flow sonography. VESSELS IMAGED: Common Femoral Vein Deep Femoral Vein Greater Saphenous Vein * Femoral Vein Popliteal Vein Small Saphenous Vein * Proximal Calf Veins (* superficial vessels) Left Leg: Negative for DVT IMPRESSION: Grayscale, color doppler, spectral doppler imaging performed of the deep veins of the lo wer extremities. There is normal flow, compressibility, vascular waveforms.
[2023-01-05 11:33] LABS: Basophils % (A) 1 %; Eosinophils # (A) 0.1 k/uL (0-0.7); Eosinophils % (A) 1 %; HCT 35.1 % (34.0-46.0); HGB 12.1 gm/dL (11.4-16.0); Lymphocytes # (A) 0.9 k/uL (1.0-4.8); Lymphocytes % (A) 13 %; MCH 32.3 pg (25.0-35.0); MCHC 34.4 g/dL (31.0-37.0); MCV 93.9 fL (80.0-100.0); Mean Platelet Volume 8.1; Monocytes # (A) 0.4 k/uL (0-1.0); Monocytes % (A) 6 %; Neutrophils # (A) 5.7 k/uL (1.3-7.7); Neutrophils % (A) 77 %; Platelet Count 196 k/uL (150-450); RBC 3.74 m/uL (3.80-5.40); RDW 14.8 % (11.5-15.5); WBC 7.4 k/uL (3.8-10.6)
[2023-01-05 11:56] LABS: Albumin 3.7 g/dL (3.5-5.0); Calcium 8.8 mg/dL (8.4-10.2); Total Bilirubin 0.4 mg/dL (0.2-1.3); Total Protein 6.1 g/dL (6.3-8.2)
[2023-01-05 12:13] LABS: Appearance,Urine Clear (Clear); Bilirubin,Urine Negative (Negative); Blood,Urine Trace (Negative); Color,Urine Light Yellow; Glucose,Urine (UA) Negative (Negative); Ketones,Urine Negative (Negative); Leukocyte Esterase,Urine Moderate (Negative); Mucus,Urine Rare /hpf; Nitrite,Urine Negative (Negative); PH, Urine 6.5 (5.0-8.0); Protein,Urine 1+ (Negative); RBC,Urine 6 /hpf (0-5); Specific Gravity,Urine 1.011 (1.001-1.035); Squamous Epithelial Cell,Urine 1 /hpf (0-4); Urobilinogen,Urine <2.0 mg/dL (<2.0); WBC,Urine 7 /hpf (0-5)
[2023-01-05] MEDS ORDERED: CEPHALEXIN 250 MG CAP PO STA (12:16)
--- NOTE | 2023-01-05 12:27 | ED ---
Extremity Problem HPI - General Chief complaint: Extremity Problem,Nontraumatic Stated complaint: lt leg pain & edema Time Seen by Provider: 01/05/23 10:08 Source: patient Mode of arrival: ambulatory Limitations: no limitations - History of Present Illness Initial comments: Patient is an 82-year-old female who presents to the emergency departments for bilateral lower extremity pain. Patient has history of extensive PAD she follows with Dr. Parr who referred her to [facility] where she sees a vascular surgeon. Patient states she saw her surgeon about one month ago who told her he would not be doing any surgical intervention and he recommended medical management. Patient started on Xarelto. Patient reports increased pain in her extremities making it difficult to ambulate. She denies injury. Pain is worse in the left leg. She reports numbness in her left foot which is new. Patient also complains of lower abdominal burning that also started this week. She denies chest pain, shortness of breath, nausea, vomiting, burning with ur ination, blood in the urine.. - Related Data Home Medications Medication Instructions Recorded Confirmed Aspirin 81 mg PO DAILY 07/14/14 01/05/23 Lisinopril [Prinivil] 5 mg PO BID 07/14/14 01/05/23 nadoloL [Corgard] 20 mg PO Q48H 07/14/14 01/05/23 Cholecalciferol [Vitamin D3 (25 25 mcg PO DAILY 08/29/22 01/05/23 Mcg = 1000 Iu)] ALPRAZolam [Xanax] 0.25 mg PO DAILY PRN 01/05/23 01/05/23 Rivaroxaban [Xarelto] 2.5 mg PO BID 01/05/23 01/05/23 Simvastatin [Zocor] 40 mg PO HS 01/05/23 01/05/23 cilostazoL [Cilostazol] 50 mg PO DAILY@1200 01/05/23 01/05/23 Previous Rx's Medication Instructions Recorded Cephalexin [Keflex] 250 mg PO Q6HR #20 cap 01/05/23 Allergies Allergy/AdvReac Type Severity Reaction Status Date / Time No Known Allergies Allergy Verified 01/05/23 12:13 Review of Systems ROS Statement: Those systems with pertinent positive or pertinent negative responses have been documented in the HPI. ROS Other: All systems not noted in ROS Statement are negative. Past Medical History Past Medical History: Hearing Disorder / Deafness, Hypertension Additional Past Medical History / Comment(s): Osteoporosis History of Any Multi-Drug Resistant Organisms: None Reported Past Surgical History: Bowel Resection, Section, Orthopedic Surgery Additional Past Surgical History / Comment(s): L elbow surgery. COLONOSCOPY Past Anesthesia/Blood Transfusion Reactions: Previous Problems w/ Anesthesia, Postoperative Nausea & Vomiting (PONV) Additional Past Anesthesia/Blood Transfusion Reaction / Comment(s): HYPER FEELING AFTER SURGERY SOMETIMES WITH ANESTHESIA Past Psychological History: No Psychological Hx Reported Smoking Status: Former smoker Past Alcohol Use History: None Reported Past Drug Use History: None Reported - Past Family History Father Family Medical History: Cancer Mother Family Medical History: No Reported History General Exam Limitations: no limitations General appearance: alert, in no apparent distress Respiratory exam: Present: normal lung sounds bilaterally. Absent: respiratory distress, wheezes, rales, rhonchi, stridor Cardiovascular Exam: Present: regular rate, normal rhythm, normal heart sounds. Absent: systolic murmur, diastolic murmur, rubs, gallop, clicks GI/Abdominal exam: Present: soft, normal bowel sounds. Absent: distended, tenderness, guarding, rebound, rigid Extremities exam: Present: other (bilateral lower extremities normal in color. Left foot cold to touch. DP pulses absent bilaterally. Full range of motion. No sensory deficit). Absent: calf tenderness Neurological exam: Present: alert, oriented X3, CN II-XII intact Psychiatric exam: Present: normal affect, normal mood Skin exam: Present: warm, dry, intact, normal color. Absent: rash Course Vital Signs 01/05/23 01/05/23 09:59 12:05 Temperature 98 F Pulse Rate 86 81 Respiratory 18 18 Rate Blood Pressure 116/80 163/81 O2 Sat by Pulse 100 96 Oximetry Medical Decision Making - Medical Decision Making EKG taken at 11:21, intermittent by me Sinus rhythm, left atrial enlargement, left axis deviation, left bundle branch block Ventricular rate 70, WI interval 209, QRS duration 148, QTc 475 Was pt. sent in by a medical professional or institution (, PA, TANK CAR REPAIRER, urgent care, hospital, or [facility]...) When possible be specific @ -No Did you speak to anyone other than the patient for history (EMS, parent, family, police, friend...)? What history was obtained from this source @ -No Did you review nursing and triage notes (agree or disagree)? Why? @ -Yes, reviewed abdominal angiogram from August which showed 100% right common iliac artery stenosis a 90% left common iliac stenosis with sluggish flow the distal aorta for 30% narrowing Were old charts reviewed (outside hosp., previous admission, EMS record, old EKG, old radiological studies, urgent care reports/EKG's, [facility] records)? Report findings @ -No old charts were reviewed Differential Diagnosis (chest pain, altered mental status, abdominal pain women, abdominal pain men, vaginal bleeding, weakness, fever, dyspnea, syncope, headache, dizziness, GI bleed, back pain, seizure, CVA, palpatations, mental health)? @ -PAD, aortic dissection DVT, AAA EKG interpreted by me (3pts min.). @ -As above X-rays interpreted by me (1pt min.). @ -None done CT interpreted by me (1pt min.). @ -Yes, CT angiogram of the abdomen and pelvis significant for possible gallbladder wall thickening. Patient does not have abdominal pain in his region. There is no dissection. There is a fusiform infrarenal abdominal aortic aneurysm spinning 7.6, upper portion is aneurysmal up to 4.1 cm and lower portion is aneurysmal up to 3 cm. The patent lumen is severely narrowed down to 3 mm U/S interpreted by me (1pt. min.). @ -[No. Ultrasound report the left lower extremity shows no DVT. What testing was considered but not performed or refused? (CT, X-rays, U/S, labs)? Why? @ -None What meds were considered but not given or refused? Why? @ -None Did you discuss the management of the patient with other professionals (professionals i.e. , PA, TANK CAR REPAIRER, lab, RT, psych nurse, renal social worker, head refrigeration engineer, teacher, asset protection officer, case supervisor)? Give summary @ -Yes, Dr. Becerra who declined admission but will be consulted Was smoking cessation discussed for >3mins.? @ -No Was critical care preformed (if so, how long)? @ -No Were there social determinants of health that impacted care today? How? (Homelessness, low income, unemployed, alcoholism, drug addiction, transportation, low edu. Level, literacy, decrease access to med. care, correction, rehab)? @ -No Was there de-escalation of care discussed even if they declined (Discuss DNR or withdrawal of care, Hospice)? DNR status @ -No What co-morbidities impacted this encounter? (DM, HTN, Smoking, COPD, CAD, Cancer, CVA, ARF, Chemo, Hep., AIDS, mental health diagnosis, sleep apnea, morbid obesity)? @ -None Was patient admitted / discharged? Hospital course, mention meds given and route, prescriptions, significant lab abnormalities, going to OR and other pertinent info. @ -Patient presenting for lower extremity pain and abdominal burning. Patient has chronic bilateral common iliac occlusion. No signs of acute limb ischemia. CT angiogram of the abdomen and pelvis shows an abdominal aortic aneurysm with a severely narrowed lumen. Urinalysis is concerning for urinary tract infection. Patient given Keflex. Patient will be admitted Dr. Adan who accepts admission. Vascular surgery on consult Undiagnosed new problem with uncertain prognosis? @ -No Drug Therapy requiring intensive monitoring for toxicity (Heparin, Nitro, Insulin, Cardizem)? @ -No Were any procedures done? @ -No Diagnosis/symptom? @ -PAD, AAA Acute, or Chronic, or Acute on Chronic? @ -acute Uncomplicated (without systemic symptoms) or Complicated (systemic symptoms)? @ -uncomplicated Side effects of treatment? @ -No Exacerbation, Progression, or Severe Exacerbation? @ -No Poses a threat to life or bodily function? How? (Chest pain, [place], [place], pneumonia, PE, COPD, DKA, ARF, appy, cholecystitis, CVA, Diverticulitis, Homicidal, Suicidal, threat to staff... and all critical care pts) @ -No Dr. gill is my attending - Lab Data Result diagrams: 01/05/23 10:58 01/05/23 10:58 Lab Results 01/05/23 01/05/23 01/05/23 Range/Units 10:58 10:58 10:58 WBC 7.4 (3.8-10.6) k/uL RBC 3.74 L (3.80-5.40) m/uL Hgb 12.1 (11.4-16.0) gm/dL Hct 35.1 (34.0-46.0) % MCV 93.9 (80.0-100.0) fL MCH 32.3 (25.0-35.0) pg MCHC 34.4 (31.0-37.0) g/dL RDW 14.8 (11.5-15.5) % Plt Count 196 (150-450) k/uL MPV 8.1 Neutrophils % 77 % Lymphocytes % 13 % Monocytes % 6 % Eosinophils % 1 % Basophils % 1 % Neutrophils # 5.7 (1.3-7.7) k/uL Lymphocytes # 0.9 L (1.0-4.8) k/uL Monocytes # 0.4 (0-1.0) k/uL Eosinophils # 0.1 (0-0.7) k/uL Basophils # 0.0 (0-0.2) k/uL Sodium 134 L (137-145) mmol/L Potassium 4.0 (3.5-5.1) mmol/L Chloride 101 (98-107) mmol/L Carbon Dioxide 25 (22-30) mmol/L Anion Gap 8 mmol/L BUN 23 H (7-17) mg/dL Creatinine 0.75 (0.52-1.04) mg/dL Est GFR (CKD-EPI)AfAm 86 (>60 ml/min/1.73 sqM) Est GFR (CKD-EPI)NonAf 75 (>60 ml/min/1.73 sqM) Glucose 106 H (74-99) mg/dL Calcium 8.8 (8.4-10.2) mg/dL Total Bilirubin 0.4 (0.2-1.3) mg/dL AST 33 (14-36) U/L ALT 31 (4-34) U/L Alkaline Phosphatase 53 (38-126) U/L Total Protein 6.1 L (6.3-8.2) g/dL Albumin 3.7 (3.5-5.0) g/dL Urine Color Light Yellow Urine Appearance Clear (Clear) Urine pH 6.5 (5.0-8.0) Ur Specific [place] 1.011 (1.001-1.035) Urine Protein 1+ H (Negative) Urine Glucose (UA) Negative (Negative) Urine Ketones Negative (Negative) Urine Blood Trace H (Negative) Urine Nitrite Negative (Negative) Urine Bilirubin Negative (Negative) Urine Urobilinogen <2.0 (<2.0) mg/dL Ur Leukocyte Esterase Moderate H (Negative) Urine RBC 6 H (0-5) /hpf Urine WBC 7 H (0-5) /hpf Ur Squamous Epith Cells 1 (0-4) /hpf Urine Mucus Rare H (None) /hpf Disposition Clinical Impression: PAD (peripheral artery disease), AAA (abdominal aortic aneurysm) Disposition: ADMITTED IP TO THIS HOSP Condition: Stable Prescriptions: Cephalexin [Keflex] 250 mg PO Q6HR #20 cap Referrals: Kia Williamson MD [Primary Care Provider] - 1-2 days
--- NOTE | 2023-01-05 13:18 | CT ---
EXAMINATION TYPE: CT angio abdomen pelvis DATE OF EXAM: 01/05/2023 COMPARISON: Correlation conventional run off images from 09/01/2022 HISTORY: 82-year-old female difficulty ambulating TECHNIQUE: Arterial phase imaging of the abdomen and pelvis before and after administration of 100 mL Isovue 370 IV contrast. Coronal/sagittal reconstructions performed. 3-D reconstructions generated o n a dedicated independent workstation. CT DLP: 628.7 mGycm Automated exposure control for dose reduction was used. FINDINGS: Heart is borderline enlarged without pericardial effusion. Extensive breathing motion at th e lower lungs limiting the evaluation. No pleural effusion. There may be a tiny hiatal hernia. Arterial phase imaging of the liver, spleen, and pancreas show no gross abnormality. There appears to be mild gallbladder wall thickening. Numerous bilateral renal cortical cysts are present measuring up to 2.0 cm. Many of these show increa sed attenuation on the initial noncontrast face suggesting varying degrees of internal complication w ith hemorrhagic or proteinaceous debris. Diffuse gastric fold thickening. There appears to be full thickening along left-sided jejunal loops a s well. Prominent fluid within small bowel loops mid and lower abdomen and pelvis and liquid stool wi thin right side of the colon. Sigmoid diverticulosis. There is a staple line from prior resection and reanastomosis at the distal sigmoid. No obvious pericolic inflammatory change. No obvious pneumatosi s, free fluid, or free air seen. Loss of intervertebral bladder wall thickening. Correlate to exclude cystitis. Left-sided pelvic phle boliths. Uterus retroverted with numerous calcified fibroids measuring up to 1.5 cm. Ovaries not clearly delin eated from adjacent clustered bowel loops. No abnormal fluid collection in the pelvis. VASCULATURE: Moderate atherosclerotic changes are present throughout. Lower thoracic aorta mildly aneurysmal 3.1 c m. Moderate narrowing at the origin of the celiac axis. Mild narrowing at the origin of the SMA. Moderate to severe narrowing at the origin and proximal portion of the right renal artery. Moderate narrowing proximal left renal artery and possible more moderate to severe at the distal main left renal artery. Tortuous infrarenal abdominal aorta with an infrarenal bilobed fusiform AAA spanning 7.6 cm. The uppe r portion is dilated up to 4.1 cm with the patent lumen measuring 1.9 cm. The lower aneurysm extends to the aortic bifurcation measuring up to 3.0 cm with the patent lumen dim inishing at the level of the bifurcation to a degenerative 3 mm. Occlusion to subtotal occlusion spanning 1.5 cm proximal left common iliac artery and severe focal st enosis proximal right common iliac artery. Additional moderate segmental stenosis right common iliac artery with occlusion at the level of the p roximal right external iliac artery. Reconstitution at the level of the common femoral artery via inf erior epigastric collateral flow. Moderate to severe narrowing throughout the [employer] V[employer] DRIVER and visualized SFA. On the left, additional moderate segmental stenoses throughout the common iliac artery. Subtotal occl usion to severe stenoses noted throughout the left external iliac artery. There is scattered moderate to severe stenoses throughout the visualized common and superficial femoral arteries on the left. 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 Advanced spondylotic change throughout the visualized lum bar spine. IMPRESSION: ABDOMEN AND PELVIS: 1. Gastric fold thickening. Additional scattered left-sided jejunal fold thickening and fluid throug hout the small bowel. Liquid stool in the right side of the colon. Correlate for gastroenteritis. 2. Possible mild gallbladder wall thickening. If concern for early acute cholecystitis, gallbladder US or HIDA scan if indicated. VASCULATURE: 3. No aortic dissection. Bilobed fusiform infrarenal AAA spanning 7.6 cm. The upper portion is aneury smal up to 4.1 cm (patent lumen narrowed to 1.9 cm) and the lower portion is aneurysmal to 3.0 cm (no te that the patent lumen is severely narrowed down to a diminutive 3 mm). Patient will likely need to be managed by vascular surgery. RIGHT: 4. Severe focal stenosis proximal right common iliac artery. Additional moderate segmental stenoses t hroughout the remainder of the right common iliac artery. 5. Occlusion at the level of the right external iliac artery with reconstitution at the [employer] V[employer] DRIVER via infer ior epigastric collateral. 6. Moderate to severe segmental stenoses throughout the visualized [employer] V[employer] DRIVER and SFA. LEFT: 7. Short segment occlusion proximal left common iliac artery with reconstitution. Additional moderate stenoses throughout the remainder of the common iliac. 8. Severe stenoses to subtotal occlusions noted throughout the left external iliac artery. 9. As on the other side, scattered moderate to severe stenoses throughout the visualized BUS VAN DRIVER and SFA.
[2023-01-05] MEDS ORDERED: NALOXONE 0.4 MG/ML 1 ML VIAL IV PRN (13:42)
[2023-01-05] MEDS ORDERED: ACETAMINOPHEN TAB 325 MG TAB PO PRN (13:42)
[2023-01-05] MEDS ORDERED: HEPARIN SODIUM 1,000 UN/ML (10ML VL) IV PRN (15:11)
[2023-01-05] MEDS ORDERED: HEPARIN SOD,PORK IN 0.45% NACL 25,000 UNIT in 0.45% NACL 1 250ML.BAG IV SCH (15:15)
--- NOTE | 2023-01-05 15:55 | P.GSCN ---
History of Present Illness Consult date: 01/05/23 Reason for Consult: AAA Requesting physician: Jesi Jama History of present illness: This 82-year-old female with known chronic peripheral arterial disease who follows with Dr. Juan Manuel Dalton out of [facility] who presented to the emergency department with complaints of left lower extremity pain. Patient [place] had seen Dr. Parr in August 2022 for claudication and underwent abdominal angiogram with runoff and reported bilateral inflow disease 100% right common iliac artery stenosis 90% left common iliac artery stenosis, with sluggish flow of the distal aorta with a 30% narrowing. He had recommended patient to vascular surgeon out of [place]. Patient states that she has seen her vascular surgeon about one month ago, he had not done any further imaging. He told patient she was a poor surgical candidate and recommended medical management. She has a follow-up appointment with him in one week. She is currently on Cymbalta O2.5 milligrams twice a day and 81 mg aspirin daily. She states that a few days ago she was getting her dogs ready to go to the [facility] and she had pain down her left leg as well as her right leg making it very difficult to stand and walk. Today she got up and was trying to walk however her left leg was very painful and she was not able to ambulate due to pain. She states her right leg is about the same. She does state that she has numbness and tingling to bilateral feet. She is denying any abdominal pain, shortness of breath, chest pain, nausea or vomiting. She is currently sitting up eating a sandwich. Vascular surgery was consulted for abdominal aortic aneurysm, left lower extremity pain. Debby had a CT angiogram abdomen and pelvis as part of her workup in the emergency department which reported abdomen and pelvis with gastric fold thicken ing. Additional scattered left-sided jejunal fold thickening and fluid throughout the small bowel. Liquid stool in the right side of the colon. Correlate for gastroenteritis. Possible mild gallbladder wall thickening. If concern for early acute cholecystitis, gallbladder ultrasound or HIDA scan if indicated. Vasculature: no aortic dissection, bilobectomy fusiform infrarenal abdominal aortic aneurysm spanning 7.6 cm, upper portion is aneurysmal up to 4.1 cm lower portion aneurysmal to 3.0 cm patent lumen severely narrowed down to diminutive 3 mm. Right lower extremity is severe focal stenosis proximal right common iliac artery additional moderate segmental stenosis throughout the remai nder of the right common iliac artery. Occlusion at the level of the right external iliac artery with reconstitution at the common femoral artery via inferior epigastric collateral. Moderate to severe segmental stenosis throughout the visualized BLOCK CUTTER and SFA. Left lower extremity was short segment occlusion proximal left common iliac artery with reconstitution. Additional moderate stenosis throughout the remainder of the common iliac. Severe stenosis to subtotal occlusion noted throughout the left external iliac artery. As on the other side scattered moderate to severe stenosis throughout the visualized BLOCK CUTTER and SFA. Review of Systems A 14 point review systems was completed all pertinent positives and negatives as stated in the HPI. Past Medical History Past Medical History: Hearing Disorder / Deafness, Hypertension Additional Past Medical History / Comment(s): Osteoporosis History of Any Multi-Drug Resistant Organisms: None Reported Past Surgical History: Bowel Resection, Section, Orthopedic Surgery Additional Past Surgical History / Comment(s): L elbow surgery. COLONOSCOPY Past Anesthesia/Blood Transfusion Reactions: Previous Problems w/ Anesthesia, Postoperative Nausea & Vomiting (PONV) Additional Past Anesthesia/Blood Transfusion Reaction / Comm: HYPER FEELING AFTER SURGERY SOMETIMES WITH ANESTHESIA Past Psychological History: No Psychological Hx Reported Smoking Status: Former smoker Past Alcohol Use History: None Reported Past Drug Use History: None Reported - Past Family History Father Family Medical History: Cancer Mother Family Medical History: No Reported History Medications and Allergies Home Medications Medication Instructions Recorded Confirmed Type Aspirin 81 mg PO DAILY 07/14/14 01/05/23 History Lisinopril [Prinivil] 5 mg PO BID 07/14/14 01/05/23 History nadoloL [Corgard] 20 mg PO Q48H 07/14/14 01/05/23 History Cholecalciferol [Vitamin D3 (25 25 mcg PO DAILY 08/29/22 01/05/23 History Mcg = 1000 Iu)] ALPRAZolam [Xanax] 0.25 mg PO DAILY PRN 01/05/23 01/05/23 History Cephalexin [Keflex] 250 mg PO Q6HR #20 cap 01/05/23 Rx Rivaroxaban [Xarelto] 2.5 mg PO BID 01/05/23 01/05/23 History Simvastatin [Zocor] 40 mg PO HS 01/05/23 01/05/23 History cilostazoL [Cilostazol] 50 mg PO DAILY@1200 01/05/23 01/05/23 History Allergies Allergy/AdvReac Type Severity Reaction Status Date / Time No Known Allergies Allergy Verified 01/05/23 12:13 Surgical - Exam Vital Signs Temp Pulse Resp BP Pulse Ox 98 F 86 18 116/80 100 01/05/23 09:59 01/05/23 09:59 01/05/23 09:59 01/05/23 09:59 01/05/23 09:59 General appearance: The patient is alert, oriented, appears in no acute distress. HET: Head is normocephalic and atraumatic. Pupils are equal and reactive. Neck: Supple. Heart: Regular. Lungs: Equal expansion, normal respiratory effort. Abdomen: Soft, nontender, nondistended. Extremities: Normal skin color and turgor. No cyanosis, rash, ulceration, or edema bilateral lower extremities. Palpable right femoral pulse, weak at best left femoral pulse, bilateral femoral Doppler signals and popliteal signals present, nonpalpable DP and PT pulses as well as no bilateral PT and DP signal. Left foot cool to the touch, patient has good range of motion, sensorimotor intact. Neurological: No focal deficits. Alert and oriented 3. Results - Labs 01/05/23 10:58 01/05/23 10:58 Abnormal Lab Results - Last 24 Hours (Table) 01/05/23 01/05/23 01/05/23 Range/Units 10:58 10:58 10:58 RBC 3.74 L (3.80-5.40) m/uL Lymphocytes # 0.9 L (1.0-4.8) k/uL Sodium 134 L (137-145) mmol/L BUN 23 H (7-17) mg/dL Glucose 106 H (74-99) mg/dL Total Protein 6.1 L (6.3-8.2) g/dL Urine Protein 1+ H (Negative) Urine Blood Trace H (Negative) Ur Leukocyte Esterase Moderate H (Negative) Urine RBC 6 H (0-5) /hpf Urine WBC 7 H (0-5) /hpf Urine Mucus Rare H (None) /hpf Diabetes panel 01/05/23 Range/Units 10:58 Sodium 134 L (137-145) mmol/L Potassium 4.0 (3.5-5.1) mmol/L Chloride 101 (98-107) mmol/L Carbon Dioxide 25 (22-30) mmol/L BUN 23 H (7-17) mg/dL Creatinine 0.75 (0.52-1.04) mg/dL Glucose 106 H (74-99) mg/dL Calcium 8.8 (8.4-10.2) mg/dL AST 33 (14-36) U/L ALT 31 (4-34) U/L Alkaline Phosphatase 53 (38-126) U/L Total Protein 6.1 L (6.3-8.2) g/dL Albumin 3.7 (3.5-5.0) g/dL Calcium panel 01/05/23 Range/Units 10:58 Calcium 8.8 (8.4-10.2) mg/dL Albumin 3.7 (3.5-5.0) g/dL Pituitary panel 01/05/23 Range/Units 10:58 Sodium 134 L (137-145) mmol/L Potassium 4.0 (3.5-5.1) mmol/L Chloride 101 (98-107) mmol/L Carbon Dioxide 25 (22-30) mmol/L BUN 23 H (7-17) mg/dL Creatinine 0.75 (0.52-1.04) mg/dL Glucose 106 H (74-99) mg/dL Calcium 8.8 (8.4-10.2) mg/dL Adrenal panel 01/05/23 Range/Units 10:58 Sodium 134 L (137-145) mmol/L Potassium 4.0 (3.5-5.1) mmol/L Chloride 101 (98-107) mmol/L Carbon Dioxide 25 (22-30) mmol/L BUN 23 H (7-17) mg/dL Creatinine 0.75 (0.52-1.04) mg/dL Glucose 106 H (74-99) mg/dL Calcium 8.8 (8.4-10.2) mg/dL Total Bilirubin 0.4 (0.2-1.3) mg/dL AST 33 (14-36) U/L ALT 31 (4-34) U/L Alkaline Phosphatase 53 (38-126) U/L Total Protein 6.1 L (6.3-8.2) g/dL Albumin 3.7 (3.5-5.0) g/dL Assessment and Plan Assessment: 1. Left lower extremity pain 2. Chronic peripheral arterial disease with bilateral iliac occlusions 3. Abdominal aortic aneurysm Plan: CT angiogram abdomen and pelvis imaging reviewed by Dr. Delvalle. Peripheral arterial disease appears chronic with likely new left common iliac occlusion. Discussed with both patient and patient's daughter who was at the bedside, that patient is not a good surgical candidate for abdominal aortic aneurysm repair and due to extent of disease endovascular repair not recommended. No plans on surgical intervention. Recommend continued medical management and pain control. Would recommend full dose anticoagulation on discharge. Will start heparin drip for now, also gabapentin 300 mg twice a day. Further recommendations to follow based on patient's clinical course. Patient has outpatient follow-up with her vascular surgeon Dr. Dalton next week. The impression and plan of care has been dictated as directed. I performed a history and examination of this patient, discussed the same with the dictator. I agree with the dictator's note ,documented as a scribe. Any additional findings or plans will be noted.
[2023-01-05] MEDS ORDERED: ALPRAZolam 0.25 MG TAB PO PRN (16:39)
--- NOTE | 2023-01-05 17:22 | P.HPIM ---
History of Present Illness H&P Date: 01/05/23 82-year-old female with PMH of severe PAD, hypertension, anxiety presents the ED for bilateral lower extremity pain. Patient reports left and right lower extremity pain that started on Sunday. Currently, she is unable to ambulate whatsoever. Her pain starts at the left hip and involves the entire leg. Pain is described as sharp and stabbing in nature. Pain is 10 out of 10 in severity only with movement. She also reports bilateral lower extremity numbness and tingling. She reports occasional cramping in both of her calves. She reports a long-standing history of smoking cigarettes. She was seen by Dr. Parr in 2021 and underwent abdominal angiogram with runoff which showed 100% right common iliac artery stenosis, 90% left common iliac artery stenosis and sluggish flow of the distal aorta with 30% narrowing. She followed up with a vascular surgeon at [place] who thought that she was a poor candidate for surgical intervention. She presents the ED today for uncontrolled pain and an inability to ambulate. She denies any headache, lower extremity edema, nausea or vomiting, fever or chills, cough, chest pain, shortness of breath, palpitations, changes in urination or bowel habits. She reports a poor appetite. She denies any dizziness. In the ED, her vital signs are stable. CBC was relatively benign. CMP showed sodium 134, BUN of 23, glucose 106 and total protein is 6.1. Urinalysis showed trace blood and moderate leukocyte esterase. Venous Doppler was negative for DVT. EKG shows sinus rhythm, ventricular rate of 70, left bundle branch block. CT angiogram showed gastric fold thickening, mild gallbladder wall thickening, infrarenal AAA spanning 7.6 cm, upper aneurysmal dilation of 4.1 cm, severe stenosis proximal right common iliac artery, occlusion of the right external iliac artery, moderate to severe segmental stenosis throughout right ORTHOTIC FITTER and SFA, occlusion of the proximal left common iliac artery, moderate stenosis throughout the remainder of the left common iliac, severe stenosis throughout left external iliac artery, moderate to severe stenosis throughout left ORTHOTIC FITTER and SFA. Patient is admitted for further management of her symptoms. Pertinent positives and negatives as discussed in HPI, a complete review of systems was performed and all other systems are negative. General: non toxic, no distress, appears at stated age Derm: warm, dry Head: atraumatic, normocephalic, symmetric Eyes: EOMI, no lid lag, anicteric sclera Mouth: no lip lesion, mucus membranes moist Cardiovascular: S1S2 reg, no murmur Lungs: CTA bilateral, no rhonchi, no rales , no accessory muscle use Abdominal: soft, nontender to palpation, no guarding, no appreciable organomegaly Ext: no gross muscle atrophy, no edema, no contractures Neuro: CN II-XI grossly intact, no focal neuro deficits Psych: Alert, oriented, appropriate affect #Failure to thrive #Bilateral lower extremity pain #PAD with bilateral iliac occlusion #Abdominal aortic aneurysm measuring 7.6 cm Chronic conditions: hypertension, anxiety Based on my assessment of this patient, this patient meets a high complexity level of care. Patient has a PAD with severe exacerbation or progression of disease which poses a threat to life or bodily function. She is found to have bilateral iliac occlusion and abdominal aortic aneurysm measuring 7.6 cm. Vascular surgery has been consulted and recommends conservative management. She is currently started on heparin drip at 18 units per kilogram per hour. I have reviewed the following economic consultant notes: Vascular surgery note 01/05, recommends conservative management and initiation of heparin drip. I have reviewed the results of the following tests: CBC was relatively benign. CMP showed sodium 134, BUN of 23, glucose 106 and total protein is 6.1. Urinalysis showed trace blood and moderate leukocyte esterase. Venous Doppler was negative for DVT. CT angiogram showed gastric fold thickening, mild gallbladder wall thickening, infrarenal AAA spanning 7.6 cm, upper aneurysmal dilation of 4.1 cm, severe stenosis proximal right common iliac artery, occlusion of the right external iliac artery, moderate to severe segmental stenosis throughout right ORTHOTIC FITTER and SFA, occlusion of the proximal left common iliac artery, moderate stenosis throughout the remainder of the left common iliac, severe stenosis throughout left external iliac artery, moderate to severe stenosis throughout left ORTHOTIC FITTER and SFA. I have ordered the following tests: None. I have discussed the care of this patient with the following independent historian: None. I have independently interpreted the following test below: EKG shows sinus rhythm, ventricular rate of 70, left bundle branch block. I have discussed the management of this patient with the following physician: The case was discussed with the ED physician, patient admitted for findings of severe PAD and bilateral iliac occlusion with AAA measuring 7.6 cm. This patient has a high risk of morbidity due to the following reasons: Patient has a PAD with severe exacerbation or progression of disease which poses a threat to life or bodily function. She is found to have bilateral iliac occlusion and abdominal aortic aneurysm measuring 7.6 cm. Vascular surgery has been consulted and recommends conservative management. She is currently started on heparin drip at 18 units per kilogram per hour. Patient be restarted on aspirin 81 mg by mouth daily, simvastatin 40 mg by mouth at bedtime and Cilostazol 50 mg by mouth daily. She will need to be fully anticoagulated on discharge. Pain will be controlled with Juda 7.5 mg by mouth every 4 hours as needed for severe pain. Gabapentin 300 mg by mouth twice a day will also be restarted. PT and OT has been consulted to work with this patient. Restarted lisinopril 5 g by mouth twice a day and nadolol 20 mg by mouth every 2 days for hypertension. Patient names her daughter Yancy decision maker if she can't make decisions for self. Heparin drip for DVT prophylaxis. Patient would like to be no code but is okay with intubation. Past Medical History Past Medical History: Hearing Disorder / Deafness, Hypertension Additional Past Medical History / Comment(s): Osteoporosis History of Any Multi-Drug Resistant Organisms: None Reported Past Surgical History: Bowel Resection, Section, Orthopedic Surgery Additional Past Surgical History / Comment(s): L elbow surgery. COLONOSCOPY Past Anesthesia/Blood Transfusion Reactions: Previous Problems w/ Anesthesia, Postoperative Nausea & Vomiting (PONV) Additional Past Anesthesia/Blood Transfusion Reaction / Comment(s): HYPER FEELING AFTER SURGERY SOMETIMES WITH ANESTHESIA Past Psychological History: No Psychological Hx Reported Smoking Status: Former smoker Past Alcohol Use History: None Reported Past Drug Use History: None Reported - Past Family History Father Family Medical History: Cancer Mother Family Medical History: No Reported History Medications and Allergies Home Medications Medication Instructions Recorded Confirmed Type Aspirin 81 mg PO DAILY 07/14/14 01/05/23 History Lisinopril [Prinivil] 5 mg PO BID 07/14/14 01/05/23 History nadoloL [Corgard] 20 mg PO Q48H 07/14/14 01/05/23 History Cholecalciferol [Vitamin D3 (25 25 mcg PO DAILY 08/29/22 01/05/23 History Mcg = 1000 Iu)] ALPRAZolam [Xanax] 0.25 mg PO DAILY PRN 01/05/23 01/05/23 History Cephalexin [Keflex] 250 mg PO Q6HR #20 cap 01/05/23 Rx Rivaroxaban [Xarelto] 2.5 mg PO BID 01/05/23 01/05/23 History Simvastatin [Zocor] 40 mg PO HS 01/05/23 01/05/23 History cilostazoL [Cilostazol] 50 mg PO DAILY@1200 01/05/23 01/05/23 History Allergies Allergy/AdvReac Type Severity Reaction Status Date / Time No Known Allergies Allergy Verified 01/05/23 12:13 Physical Exam Vitals: Vital Signs Temp Pulse Resp BP Pulse Ox 01/05/23 16:15 64 18 162/81 96 01/05/23 12:05 81 18 163/81 96 01/05/23 09:59 98 F 86 18 116/80 100 Intake and Output 01/05/23 01/05/23 01/05/23 06:59 14:59 22:59 Other: Weight 42.184 kg Results CBC & Chem 7: 01/05/23 10:58 01/05/23 10:58 Labs: Abnormal Lab Results - Last 24 Hours (Table) 01/05/23 01/05/23 01/05/23 Range/Units 10:58 10:58 10:58 RBC 3.74 L (3.80-5.40) m/uL Lymphocytes # 0.9 L (1.0-4.8) k/uL Sodium 134 L (137-145) mmol/L BUN 23 H (7-17) mg/dL Glucose 106 H (74-99) mg/dL Total Protein 6.1 L (6.3-8.2) g/dL Urine Protein 1+ H (Negative) Urine Blood Trace H (Negative) Ur Leukocyte Esterase Moderate H (Negative) Urine RBC 6 H (0-5) /hpf Urine WBC 7 H (0-5) /hpf Urine Mucus Rare H (None) /hpf
[2023-01-05 17:55] LABS: Basophils % (A) 0 %; Eosinophils # (A) 0.1 k/uL (0-0.7); Eosinophils % (A) 2 %; HCT 36.6 % (34.0-46.0); HGB 12.2 gm/dL (11.4-16.0); Lymphocytes # (A) 1.3 k/uL (1.0-4.8); Lymphocytes % (A) 18 %; MCH 31.9 pg (25.0-35.0); MCHC 33.4 g/dL (31.0-37.0); MCV 95.5 fL (80.0-100.0); Monocytes # (A) 0.6 k/uL (0-1.0); Monocytes % (A) 9 %; Neutrophils # (A) 4.7 k/uL (1.3-7.7); Neutrophils % (A) 67 %; Platelet Count 207 k/uL (150-450); RBC 3.83 m/uL (3.80-5.40); RDW 14.5 % (11.5-15.5); WBC 6.9 k/uL (3.8-10.6)
[2023-01-05 18:05] LABS: INR 1.1 (<1.2); Partial Thromboplastin Time 32.7 sec (22.0-30.0); Prothrombin Time 11.3 sec (9.0-12.0)
[2023-01-05] MEDS: lisinopriL 5 MG TAB PO SCH (20:46)
[2023-01-05] MEDS: GABAPENTIN 300 MG CAP PO SCH (20:46)
[2023-01-05] MEDS: ATORVASTATIN 20 MG TAB PO SCH (20:47)
[2023-01-06 08:00] LABS: Basophils % (A) 1 %; Eosinophils # (A) 0.2 k/uL (0-0.7); Eosinophils % (A) 3 %; HCT 34.4 % (34.0-46.0); HGB 11.5 gm/dL (11.4-16.0); Lymphocytes # (A) 1.2 k/uL (1.0-4.8); Lymphocytes % (A) 22 %; MCH 32.4 pg (25.0-35.0); MCHC 33.4 g/dL (31.0-37.0); MCV 96.9 fL (80.0-100.0); Mean Platelet Volume 8.1; Monocytes # (A) 0.5 k/uL (0-1.0); Monocytes % (A) 9 %; Neutrophils # (A) 3.4 k/uL (1.3-7.7); Neutrophils % (A) 62 %; Platelet Count 164 k/uL (150-450); RBC 3.55 m/uL (3.80-5.40); RDW 14.4 % (11.5-15.5); WBC 5.6 k/uL (3.8-10.6)
[2023-01-06] MEDS: GABAPENTIN 300 MG CAP PO SCH ×2 (09:10→19:36)
[2023-01-06] MEDS: ASPIRIN 81 MG PO SCH (09:11)
[2023-01-06] MEDS: lisinopriL 5 MG TAB PO SCH ×2 (09:11→19:36)
[2023-01-06] MEDS: RIVAROXABAN 2.5 MG TABLET PO SCH ×2 (09:11→19:36)
--- NOTE | 2023-01-06 12:11 | P.PN ---
Subjective Progress Note Date: 01/06/23 82-year-old female with PMH of severe PAD, hypertension, anxiety presents the ED for bilateral lower extremity pain. Patient reports left and right lower extremity pain that started on Sunday. Currently, she is unable to ambulate whatsoever. Her pain starts at the left hip and involves the entire leg. Pain is described as sharp and stabbing in nature. Pain is 10 out of 10 in severity only with movement. She also reports bilateral lower extremity numbness and tingling. She reports occasional cramping in both of her calves. She reports a long-standing history of smoking cigarettes. She was seen by Dr. Parr in 2021 and underwent abdominal angiogram with runoff which showed 100% right com mon iliac artery stenosis, 90% left common iliac artery stenosis and sluggish flow of the distal aorta with 30% narrowing. She followed up with a vascular surgeon at [place] who thought that she was a poor candidate for surgical intervention. She presents the ED today for uncontrolled pain and an inability to ambulate. She denies any headache, lower extremity edema, nausea or vomiting, fever or chills, cough, chest pain, shortness of breath, palpitations, changes in urination or bowel habits. She reports a poor appetite. She denies any dizziness. In the ED, her vital signs are stable. CBC was relatively benign. CMP showed sodium 134, BUN of 23, glucose 106 and total protein is 6.1. Urinalysis showed trace blood and moderate leukocyte esterase. Venous Doppler was negative for DVT. EKG shows sinus rhythm, ventricular rate of 70, left bundle branch block. CT angiogram showed gastric fold thickening, mild gallbladder wall thickening, infrarenal AAA spanning 7.6 cm, upper aneurysmal dilation of 4.1 cm, severe stenosis proximal right common iliac artery, occlusion of the right external iliac artery, moderate to severe segmental stenosis throughout right BULK STATION AGENT and SFA, occlusion of the proximal left common iliac artery, moderate stenosis throughout the remainder of the left common iliac, severe stenosis throughout left external iliac artery, moderate to severe stenosis throughout left BULK STATION AGENT and SFA. Patient is admitted for further management of her symptoms. Patient was started on a heparin drip. This was transitioned to Xarelto. PT and OT was consulted. Patient was seen and examined this morning. No acute events overnight. She is pending evaluation by PT and OT. General: non toxic, no distress, appears at stated age Derm: warm, dry Head: atraumatic, normocephalic, symmetric Eyes: EOMI, no lid lag, anicteric sclera Mouth: no lip lesion, mucus membranes moist Cardiovascular: S1S2 reg, no murmur Lungs: CTA bilateral, no rhonchi, no rales , no accessory muscle use Ext: no gross muscle atrophy, no edema, no contractures Neuro: no focal neuro deficits Psych: Alert, oriented, appropriate affect #Failure to thrive #Bilateral lower extremity pain #PAD with bilateral iliac occlusion #Abdominal aortic aneurysm measuring 7.6 cm Chronic conditions: hypertension, anxiety Based on my assessment of this patient, this patient meets a moderate complexity level of care. I have reviewed the following taxation consultant notes: None. I have reviewed the results of the following tests: CBC shows RBC count of 3.55. APTT is 103.0. I have ordered the following tests: None. I have discussed the care of this patient with the following independent historian: None. I have independently interpreted the following test below: None. I have discussed the management of this patient with the following physician: None. This patient has a high risk of morbidity due to the following reasons: Patient has a PAD with severe exacerbation or progression of disease which poses a threat to life or bodily function. She is found to have bilateral iliac occlusion and abdominal aortic aneurysm measuring 7.6 cm. Vascular surgery has been consulted and recommends conservative management. Heparin drip is discontinued and patient is restarted on Xarelto 2.5 mg by mouth twice a day. Patient be continued on aspirin 81 mg by mouth daily, simvastatin 40 mg by mouth at bedtime and Cilostazol 50 mg by mouth daily. Pain will be controlled with [place] 7.5 mg by mouth every 4 hours as needed for severe pain. Gabapentin 300 mg by mouth twice a day will be continued. PT and OT recommends SNF. Continue lisinopril 5 mg by mouth twice a day and nadolol 20 mg by mouth every 2 days for hypertension. Patient names her daughter Yancy decision maker if she can't make decisions for self. Heparin drip for DVT prophylaxis. Patient would like to be no code but is okay with intubation. Objective - Vital Signs Vital signs: Vital Signs Temp 98.2 F 01/06/23 08:00 Pulse 75 01/06/23 08:00 Resp 18 01/06/23 08:00 BP 131/66 01/06/23 08:00 Pulse Ox 94 L 01/06/23 08:00 FiO2 Intake & Output 01/05/23 01/06/23 01/06/23 18:59 06:59 18:59 Intake Total 55.682 193.371 Balance 55.682 193.371 Weight 42.184 kg Intake: Intake, IV Titration 55.682 75.371 Amount Heparin Sod,Pork in 0.45% 55.682 75.371 NaCl 25,000 unit In 0.45 % NaCl 1 250ml.bag @ 18 UNITS/KG/HR 7.593 mls/hr IV .Q24H RUPA Rx#: [id number] Oral 118 Other: # Voids 1 - Labs CBC & Chem 7: 01/06/23 06:14 01/05/23 10:58 Labs: Abnormal Lab Results - Last 24 Hours (Table) 01/05/23 01/05/23 01/05/23 Range/Units 10:58 17:41 21:13 RBC (3.80-5.40) m/uL APTT 32.7 H 40.8 H (22.0-30.0) sec Urine Protein 1+ H (Negative) Urine Blood Trace H (Negative) Ur Leukocyte Esterase Moderate H (Negative) Urine RBC 6 H (0-5) /hpf Urine WBC 7 H (0-5) /hpf Urine Mucus Rare H (None) /hpf 01/06/23 01/06/23 Range/Units 06:14 06:14 RBC 3.55 L (3.80-5.40) m/uL APTT 103.0 H* (22.0-30.0) sec Urine Protein (Negative) Urine Blood (Negative) Ur Leukocyte Esterase (Negative) Urine RBC (0-5) /hpf Urine WBC (0-5) /hpf Urine Mucus (None) /hpf
[2023-01-06] MEDS: cilostazoL 100 MG TAB PO SCH (12:27)
[2023-01-06] MEDS: HYDROcodone/APAP 7.5-325MG 1 EACH TAB PO PRN (15:08)
[2023-01-06] MEDS ORDERED: ONDANSETRON 4 MG/2 ML VIAL IVP STA (19:14)
[2023-01-06] MEDS: ATORVASTATIN 20 MG TAB PO SCH (19:36)
[2023-01-07] MEDS: lisinopriL 5 MG TAB PO SCH ×2 (08:42→20:22)
[2023-01-07] MEDS: ASPIRIN 81 MG PO SCH (08:42)
[2023-01-07] MEDS: GABAPENTIN 300 MG CAP PO SCH ×2 (08:42→20:22)
[2023-01-07] MEDS: RIVAROXABAN 2.5 MG TABLET PO SCH ×2 (08:42→20:22)
[2023-01-07] MEDS: HYDROcodone/APAP 7.5-325MG 1 EACH TAB PO PRN (08:44)
[2023-01-07] MEDS: cilostazoL 100 MG TAB PO SCH (12:04)
--- NOTE | 2023-01-07 13:21 | P.PN ---
Subjective Progress Note Date: 01/07/23 82-year-old female with PMH of severe PAD, hypertension, anxiety presents the ED for bilateral lower extremity pain. Patient reports left and right lower extremity pain that started on Sunday. Currently, she is unable to ambulate whatsoever. Her pain starts at the left hip and involves the entire leg. Pain is described as sharp and stabbing in nature. Pain is 10 out of 10 in severity only with movement. She also reports bilateral lower extremity numbness and tingling. She reports occasional cramping in both of her calves. She reports a long-standing history of smoking cigarettes. She was seen by Dr. Parr in 2021 and underwent abdominal angiogram with runoff which showed 100% right com mon iliac artery stenosis, 90% left common iliac artery stenosis and sluggish flow of the distal aorta with 30% narrowing. She followed up with a vascular surgeon at [facility] who thought that she was a poor candidate for surgical intervention. She presents the ED today for uncontrolled pain and an inability to ambulate. She denies any headache, lower extremity edema, nausea or vomiting, fever or chills, cough, chest pain, shortness of breath, palpitations, changes in urination or bowel habits. She reports a poor appetite. She denies any dizziness. In the ED, her vital signs are stable. CBC was relatively benign. CMP showed sodium 134, BUN of 23, glucose 106 and total protein is 6.1. Urinalysis showed trace blood and moderate leukocyte esterase. Venous Doppler was negative for DVT. EKG shows sinus rhythm, ventricular rate of 70, left bundle branch block. CT angiogram showed gastric fold thickening, mild gallbladder wall thickening, infrarenal AAA spanning 7.6 cm, upper aneurysmal dilation of 4.1 cm, severe stenosis proximal right common iliac artery, occlusion of the right external iliac artery, moderate to severe segmental stenosis throughout right ANALYTICS LEAD and SFA, occlusion of the proximal left common iliac artery, moderate stenosis throughout the remainder of the left common iliac, severe stenosis throughout left external iliac artery, moderate to severe stenosis throughout left ANALYTICS LEAD and SFA. Patient is admitted for further management of her symptoms. Patient was started on a heparin drip. This was transitioned to Xarelto. PT and OT was consulted. Patient was seen and examined this morning. No acute events overnight. Patient reports quite a bit of pain in her left foot. General: non toxic, no distress, appears at stated age Derm: warm, dry Head: atraumatic, normocephalic, symmetric Eyes: EOMI, no lid lag, anicteric sclera Mouth: no lip lesion, mucus membranes moist Cardiovascular: S1S2 reg, no murmur Lungs: CTA bilateral, no rhonchi, no rales , no accessory muscle use Ext: no gross muscle atrophy, no edema, no contractures Neuro: no focal neuro deficits Psych: Alert, oriented, appropriate affect #Failure to thrive #Bilateral lower extremity pain #PAD with bilateral iliac occlusion #Abdominal aortic aneurysm measuring 7.6 cm Chronic conditions: hypertension, anxiety Based on my assessment of this patient, this patient meets a moderate complexity level of care. I have reviewed the following media sales consultant notes: None. I have reviewed the results of the following tests: None. I have ordered the following tests: None. I have discussed the care of this patient with the following independent historian: None. I have independently interpreted the following test below: None. I have discussed the management of this patient with the following physician: None. This patient has a moderate risk of morbidity due to the following reasons: Patient has a PAD with severe exacerbation or progression of disease which poses a threat to life or bodily function. She is found to have bilateral iliac occlusion and abdominal aortic aneurysm measuring 7.6 cm. Vascular surgery has been consulted and recommends conservative management. Heparin drip is discontinued and patient is restarted on Xarelto 2.5 mg by mouth twice a day. Patient be continued on aspirin 81 mg by mouth daily, simvastatin 40 mg by mouth at bedtime and Cilostazol 50 mg by mouth daily. Pain will be controlled with [place] 7.5 mg by mouth every 4 hours as needed for severe pain. Gabapentin 300 mg by mouth twice a day will be continued. PT and OT recommends SNF. Continue lisinopril 5 mg by mouth twice a day and nadolol 20 mg by mouth every 2 days for hypertension. Patient names her daughter Yancy decision maker if she can't make decisions for self. Heparin drip for DVT prophylaxis. Patient would like to be no code but is okay with intubation. Objective - Vital Signs Vital signs: Vital Signs Temp 97.8 F 01/07/23 12:00 Pulse 69 01/07/23 12:00 Resp 18 01/07/23 12:00 BP 165/72 01/07/23 12:00 Pulse Ox 97 01/07/23 12:00 FiO2 Intake & Output 01/06/23 01/07/23 01/07/23 18:59 06:59 18:59 Intake Total 421.371 360 Output Total 300 Balance 121.371 360 Intake: Intake, IV Titration 75.371 Amount Heparin Sod,Pork in 0.45% 75.371 NaCl 25,000 unit In 0.45 % NaCl 1 250ml.bag @ 18 UNITS/KG/HR 7.593 mls/hr IV .Q24H [facility] Rx#: [id number] Oral 346 360 Output: Urine 300 Other: # Voids 1 # Bowel Movements 0 - Labs CBC & Chem 7: 01/06/23 06:14 01/05/23 10:58
[2023-01-07] MEDS: MAG HYDROX/AL HYDROX/SIMETH 30 ML CUP PO PRN (14:07)
[2023-01-07] MEDS: ATORVASTATIN 20 MG TAB PO SCH (20:22)
[2023-01-08] MEDS: HYDROcodone/APAP 7.5-325MG 1 EACH TAB PO PRN (02:26)
[2023-01-08] MEDS: MAG HYDROX/AL HYDROX/SIMETH 30 ML CUP PO PRN (10:05)
[2023-01-08] MEDS: ASPIRIN 81 MG PO SCH (10:05)
[2023-01-08 10:57] VITALS: RESP 17
[2023-01-08 11:49] VITALS: BP 148/65; PULSE 78; TEMP 97.7
--- NOTE | 2023-01-08 12:03 | P.PN ---
Subjective Progress Note Date: 01/08/23 Principal diagnosis: Left lower extremity pain, abdominal aortic aneurysm Patient seen and examined in for follow-up. No acute changes through the weekend. Left lower extremity pain improved. She denies any shortness of breath, chest pain abdominal pain, back pain, nausea or vomiting. Patient was transitioned from heparin drip back to Xarelto. Objective - Vital Signs Vital signs: Vital Signs Temp 97.7 F 01/08/23 11:48 Pulse 78 01/08/23 11:48 Resp 17 01/08/23 11:48 BP 148/65 01/08/23 11:48 Pulse Ox 96 01/08/23 11:48 FiO2 Intake & Output 01/07/23 01/08/23 01/08/23 18:59 06:59 18:59 Intake Total 840 550 Balance 840 550 Intake: IV 10 Invasive Line 1 10 Oral 840 540 Other: Voiding Method Bedside Commode Bedside Commode # Voids 1 # Bowel Movements 0 - Exam General appearance: The patient is alert, oriented, appears in no acute distress. HET: Head is normocephalic and atraumatic. Pupils are equal and reactive. Neck: Supple. Heart: Regular. Lungs: Equal expansion, normal respiratory effort. Abdomen: Soft, nontender, nondistended. Extremities: Normal skin color and turgor. No cyanosis, rash, ulceration, or edema bilateral lower extremities. Palpable right femoral pulse, weak at best left femoral pulse, bilateral femoral Doppler signals and popliteal signals present, nonpalpable DP and PT pulses as well as no bilateral PT and DP signal. Left foot cool to the touch, patient has good range of motion, sensorimotor intact. Neurological: No focal deficits. Alert and oriented 3. - Labs CBC & Chem 7: 01/06/23 06:14 01/05/23 10:58 Assessment and Plan Assessment: 1. Left lower extremity pain 2. Chronic peripheral arterial disease with bilateral iliac occlusions 3. Abdominal aortic aneurysm Plan: CT angiogram abdomen and pelvis imaging reviewed by Dr. Delvalle. Peripheral arterial disease appears chronic with likely new left common iliac occlusion. Discussed with both patient and patient's daughter who was at the bedside, that patient is not a good surgical candidate for abdominal aortic aneurysm repair and due to extent of disease endovascular repair not recommended. No plans on surgical intervention, continue medical management. Continue Xarelto. Patient has outpatient follow-up with her vascular surgeon Dr. Dalton next week, recomm end follow-up as scheduled. Patient is cleared from vascular surgery for discharge. The impression and plan of care has been dictated as directed. Dr. Becerra I performed a history and examination of this patient, discussed the same with the dictator. I agree with the dictator's note ,documented as a scribe. Any additional findings or plans will be noted.
--- NOTE | 2023-01-08 12:14 | P.DS ---
Providers Date of admission: 01/05/23 15:55 Expected date of discharge: 01/08/23 Attending physician: Iglesia Adan MD Consults: 01/05/23 13:42 Consult Physician Routine Consulting Provider: Sergey Becerra Consult Reason/Comments: AAA Do you want consulting provider notified?: Already Contacted Primary care physician: Kai Williamson MD Hospital Course: 82-year-old female with PMH of severe PAD, hypertension, anxiety presents the ED for bilateral lower extremity pain. Patient reports left and right lower extremity pain that started on Sunday. Currently, she is unable to ambulate whatsoever. Her pain starts at the left hip and involves the entire leg. Pain is described as sharp and stabbing in nature. Pain is 10 out of 10 in severity only with movement. She also reports bilateral lower extremity numbness and tingling. She reports occasional cramping in both of her calves. She reports a long-standing history of smoking cigarettes. She was seen by Dr. Parr in 2021 and underwent abdominal angiogram with runoff which showed 100% right common iliac artery stenosis, 90% left common iliac artery stenosis and sluggish flow of the distal aorta with 30% narrowing. She followed up with a vascular surgeon at [facility] who thought that she was a poor candidate for surgical intervention. She presents the ED today for uncontrolled pain and an inability to ambulate. She denies any headache, lower extremity edema, nausea or vomiting, fever or chills, cough, chest pain, shortness of breath, palpitations, changes in urination or bowel habits. She reports a poor appetite. She denies any dizziness. In the ED, her vital signs are stable. CBC was relatively benign. CMP showed sodium 134, BUN of 23, glucose 106 and total protein is 6.1. Urinalysis showed trace blood and moderate leukocyte esterase. Venous Doppler was negative for DVT. EKG shows sinus rhythm, ventricular rate of 70, left bundle branch block. CT angiogram showed gastric fold thickening, mild gallbladder wall thickening, infrarenal AAA spanning 7.6 cm, upper aneurysmal dilation of 4.1 cm, severe stenosis proximal right common iliac artery, occlusion of the right external iliac artery, moderate to severe segmental stenosis throughout right MANAGER SPEECH and SFA, occlusion of the proximal left common iliac artery, moderate stenosis throughout the remainder of the left common iliac, severe stenosis throughout left external iliac artery, moderate to severe stenosis throughout left MANAGER SPEECH and SFA. Patient is admitted for further management of her symptoms. Patient was started on a heparin drip. This was transitioned to Xarelto. PT and OT was consulted and recommended SNF. Patient was seen and examined this morning. No acute events overnight. Patient reports quite a bit of pain in her left foot. Pertinent studies include venous Doppler, CTA abdomen and pelvis. General: non toxic, no distress, appears at stated age Derm: warm, dry Head: atraumatic, normocephalic, symmetric Eyes: EOMI, no lid lag, anicteric sclera Mouth: no lip lesion, mucus membranes moist Cardiovascular: S1S2 reg, no murmur Lungs: CTA bilateral, no rhonchi, no rales , no accessory muscle use Ext: no gross muscle atrophy, no edema, no contractures Neuro: no focal neuro deficits Psych: Alert, oriented, appropriate affect Discharge diagnoses: #Failure to thrive #Bilateral lower extremity pain #PAD with bilateral iliac occlusion #Abdominal aortic aneurysm measuring 7.6 cm Chronic conditions: hypertension, anxiety This complex discharge took 35 minutes to complete. Patient Condition at Discharge: Stable Plan - Discharge Summary Discharge Rx Participant: No New Discharge Prescriptions: New Gabapentin [Neurontin] 300 mg PO BID #6 cap Cephalexin [Keflex] 250 mg PO Q6HR #20 cap Mag Hydrox/Al Hydrox/Simeth [Maalox] 30 ml PO Q4HR PRN ml PRN Reason: Gi Upset HYDROcodone/APAP 7.5-325MG [[place] 7.5-325] 1 each PO Q4HR PRN #10 tab PRN Reason: Breakthrough Pain Continue nadoloL [Corgard] 20 mg PO Q48H Lisinopril [Prinivil] 5 mg PO BID Aspirin 81 mg PO DAILY Cholecalciferol [Vitamin D3 (25 Mcg = 1000 Iu)] 25 mcg PO DAILY cilostazoL [Pletal] 50 mg PO DAILY@1200 Simvastatin [Zocor] 40 mg PO HS Rivaroxaban [Xarelto] 2.5 mg PO BID ALPRAZolam [Xanax] 0.25 mg PO DAILY PRN #3 tab PRN Reason: Anxiety Discharge Medication List Aspirin 81 mg PO DAILY 07/14/14 [History] Lisinopril [Prinivil] 5 mg PO BID 09/23/14 [History] nadoloL [Corgard] 20 mg PO Q48H 07/14/14 [History] Cholecalciferol [Vitamin D3 (25 Mcg = 1000 Iu)] 25 mcg PO DAILY 08/29/22 [History] Cephalexin [Keflex] 250 mg PO Q6HR #20 cap 01/05/23 [Rx] Rivaroxaban [Xarelto] 2.5 mg PO BID 01/05/23 [History] Simvastatin [Zocor] 40 mg PO HS 01/05/23 [History] cilostazoL [Pletal] 50 mg PO DAILY@1200 01/05/23 [History] ALPRAZolam [Xanax] 0.25 mg PO DAILY PRN #3 tab 01/08/23 [Rx] Gabapentin [Neurontin] 300 mg PO BID #6 cap 01/08/23 [Rx] HYDROcodone/APAP 7.5-325MG [[place] 7.5-325] 1 each PO Q4HR PRN #10 tab 01/08/23 [Rx] Mag Hydrox/Al Hydrox/Simeth [Maalox] 30 ml PO Q4HR PRN ml 01/08/23 [Rx] Follow up Appointment(s)/Referral(s): Sergey Becerra DO [STAFF PHYSICIAN] - 1 Week Kai Williamson MD [Primary Care Provider] - 1-2 days Activity/Diet/Wound Care/Special Instructions: Diet: Cardiac Follow-up with your PCP within 1-2 days of discharge. Follow-up with vascular surgery within 1 week of discharge. Discharge Disposition: TRANSFER TO SNF/ECF
[2023-01-08] MEDS: GABAPENTIN 300 MG CAP PO SCH (12:43)
[2023-01-08] MEDS: RIVAROXABAN 2.5 MG TABLET PO SCH (12:43)
[2023-01-08] MEDS: cilostazoL 100 MG TAB PO SCH (12:43)
[2023-01-08] MEDS: lisinopriL 5 MG TAB PO SCH (12:43)
[2023-01-08 14:44] VITALS: BMI 18.1
== END 2023-01-08 14:59 ==
LOC: EC 09:50 → 3SCARD 15:55
PROVIDERS: ADMIT Student in an Organized Health Care Education/Training Program; ATTEND Student in an Organized Health Care Education/Training Program
DX: R62.7 Adult failure to thrive (principal); M79.605 Pain in left leg; M79.604 Pain in right leg; I71.43 Infrarenal abdominal aortic aneurysm, without rupture; E11.51 Type 2 diabetes mellitus with diabetic peripheral angiopathy without gangrene; M81.0 Age-related osteoporosis without current pathological fracture; H91.90 Unspecified hearing loss, unspecified ear; I44.7 Left bundle-branch block, unspecified; I11.9 Hypertensive heart disease without heart failure; Q61.02 Congenital multiple renal cysts; K57.30 Diverticulosis of large intestine without perforation or abscess without bleeding; F41.9 Anxiety disorder, unspecified; I70.8 Atherosclerosis of other arteries; D25.9 Leiomyoma of uterus, unspecified; I74.5 Embolism and thrombosis of iliac artery; I87.8 Other specified disorders of veins; Z79.82 Long term (current) use of aspirin; Z79.899 Other long term (current) drug therapy; Z79.01 Long term (current) use of anticoagulants; Z79.02 Long term (current) use of antithrombotics/antiplatelets; Z87.891 Personal history of nicotine dependence; Z80.9 Family history of malignant neoplasm, unspecified
CPT/HCPCS: 96376; 96366 ×3; 96365; 96375; 99285; 36415; 93005; 97116; 97161; 97165; 80053; 85025 ×2; 85610; 85730 ×2; 81001; 93971; 74174; G0378 ×4; J2405 ×2; J1644 ×2; Q9967

== ENCOUNTER → 2023-06-06 | Outpatient (CLI) | payer MEDICARE, MEDICAID ==
--- NOTE | 2023-06-07 08:17 | US ---
EXAMINATION TYPE: US kidneys/renal and bladder DATE OF EXAM: 06/06/2023 COMPARISON: CT 01/05/2023 CLINICAL INDICATION: Female, 82 years old with history of N18.30 CHRONIC KIDNEY DISEASE, STAGE 3; CKD EXAM MEASUREMENTS: Right Kidney: 10.1 x 4.5 x 4.6 cm Left Kidney: 9.0 x 4.8 x 3.9 cm Extremely thin pt, difficult to scan Right Kidney: No evidence of hydro, multiple calcs scattered throughout kidney ?stones vs. vascular c alcifications, multicystic with largest cyst mid/lateral= 2.2 x 1.8 x 1.8 cm Left Kidney: Difficult to visualize due to pt's thin body habitus/ No evidence of hydro, multicystic with largest cyst mid= 1.1 cm Bladder: wnl Bilateral Jets seen: Yes IMPRESSION: 1. No obstructive uropathy. 2. Scattered bilateral nonobstructing calculi in the kidneys. 3. Cysts are seen bilaterally. Findings also seen on prior CT on 01/05/2023
== END | disposition home or self-care (01) ==
LOC: RADUSWWP 16:09
PROVIDERS: ATTEND Internal Medicine
DX: N18.30 Chronic kidney disease, stage 3 unspecified (principal); N20.0 Calculus of kidney; N28.1 Cyst of kidney, acquired
CPT/HCPCS: 76770

== ENCOUNTER 2024-11-06 05:14 | Inpatient (IN) | payer MEDICARE, MEDICAID ==
[2024-11-06 06:00] LABS: Basophils % (A) 0 %; Eosinophils # (A) 0.5 k/uL (0-0.7); Eosinophils % (A) 7 %; HCT 40.1 % (34.0-46.0); HGB 13.1 gm/dL (11.4-16.0); Lymphocytes # (A) 1.8 k/uL (1.0-4.8); Lymphocytes % (A) 24 %; MCH 30.2 pg (25.0-35.0); MCHC 32.6 g/dL (31.0-37.0); MCV 92.6 fL (80.0-100.0); Monocytes # (A) 0.5 k/uL (0-1.0); Monocytes % (A) 7 %; Neutrophils # (A) 4.5 k/uL (1.3-7.7); Neutrophils % (A) 59 %; Platelet Count 172 k/uL (150-450); RBC 4.33 m/uL (3.80-5.40); RDW 14.9 % (11.5-15.5); WBC 7.6 k/uL (3.8-10.6)
--- NOTE | 2024-11-06 06:00 | ED ---
SOB HPI <Jeffery Murray - Last Filed: 11/06/24 07:51> - General Source: EMS, RN notes reviewed, old records reviewed Mode of arrival: EMS - History of Present Illness MD Complaint: shortness of breath, cough, anxiety -: hour(s) Severity: moderate Severity scale (1-10): 6 Consistency: constant Improves With: nothing Known History Of: COPD Context: recent URI, anxiety, recent illness Associated Symptoms: denies other symptoms <Jeffery Del Valle - Last Filed: 11/12/24 13:39> - General Chief Complaint: Shortness of Breath Stated Complaint: KJ Time Seen by Provider: 11/06/24 05:34 - History of Present Illness Initial Comments: This is an 83-year-old female to ER presenting by EMS. Patient presents by EMS for cough congestion shortness of breath nausea weakness. Patient complains of shortness of breath unable to catch her breath with wheezing. She does state that EMS gave her breathing treatment which did help history of high blood pressure no heart history no history of COPD (Jeffery Del Valle) - Related Data Home Medications Medication Instructions Recorded Confirmed Aspirin 81 mg PO DAILY 07/14/14 11/06/24 Lisinopril [Prinivil] 5 mg PO DAILY 07/14/14 11/06/24 Rivaroxaban [Xarelto] 2.5 mg PO BID 01/05/23 11/06/24 Simvastatin [Zocor] 40 mg PO HS 01/05/23 11/06/24 cilostazoL [Pletal] 50 mg PO DAILY 01/05/23 11/06/24 Escitalopram Oxalate [Lexapro] 10 mg PO DAILY 11/06/24 11/06/24 Metoprolol Tartrate [Lopressor] 25 mg PO BID 11/06/24 11/06/24 Allergies Allergy/AdvReac Type Severity Reaction Status Date / Time No Known Allergies Allergy Verified 11/06/24 08:16 Review of Systems ROS Other: All systems not noted in ROS Statement are negative. <Jeffery Murray - Last Filed: 11/06/24 07:51> ROS Other: All systems not noted in ROS Statement are negative. <Jeffery Del Valle - Last Filed: 11/12/24 13:39> ROS Statement: Those systems with pertinent positive or pertinent negative responses have been documented in the HPI. Past Medical History Past Medical History: Hearing Disorder / Deafness, Hypertension Additional Past Medical History / Comment(s): Osteoporosis History of Any Multi-Drug Resistant Organisms: None Reported Past Surgical History: Bowel Resection, Section, Orthopedic Surgery Additional Past Surgical History / Comment(s): L elbow surgery. COLONOSCOPY Past Anesthesia/Blood Transfusion Reactions: Previous Problems w/ Anesthesia, Postoperative Nausea & Vomiting (PONV) Additional Past Anesthesia/Blood Transfusion Reaction / Comment(s): HYPER FEELING AFTER SURGERY SOMETIMES WITH ANESTHESIA Past Psychological History: No Psychological Hx Reported Smoking Status: Former smoker Past Alcohol Use History: None Reported Past Drug Use History: None Reported - Past Family History Father Family Medical History: Cancer Mother Family Medical History: No Reported History <Jeffery Del Valle - Last Filed: 11/12/24 13:39> General Exam General appearance: alert, in no apparent distress Head exam: Present: atraumatic, normocephalic, normal inspection Eye exam: Present: normal appearance, PERRL, EOMI. Absent: scleral icterus, conjunctival injection, periorbital swelling ENT exam: Present: normal exam, mucous membranes moist Neck exam: Present: normal inspection. Absent: tenderness, meningismus, lymphadenopathy Respiratory exam: Present: normal lung sounds bilaterally. Absent: respiratory distress, wheezes, rales, rhonchi, stridor Cardiovascular Exam: Present: regular rate, normal rhythm, normal heart sounds. Absent: systolic murmur, diastolic murmur, rubs, gallop, clicks GI/Abdominal exam: Present: soft, normal bowel sounds. Absent: distended, tenderness, guarding, rebound, rigid Extremities exam: Present: normal inspection, full ROM, normal capillary refill. Absent: tenderness, pedal edema, joint swelling, calf tenderness Back exam: Present: normal inspection Neurological exam: Present: alert, oriented X3, CN II-XII intact Psychiatric exam: Present: normal affect, normal mood Skin exam: Present: warm, dry, intact, normal color. Absent: rash <Jeffery Del Valle - Last Filed: 11/12/24 13:39> Course <Jeffery Del Valle Last Filed: 11/12/24 13:39> Vital Signs 11/06/24 11/06/24 11/06/24 05:23 07:48 07:56 Temperature 97.6 F Pulse Rate 100 102 H 104 H Respiratory 20 Rate Blood Pressure 178/108 O2 Sat by Pulse 94 L Oximetry 11/06/24 11/06/24 11:34 15:10 Temperature 98 F 98.4 F Pulse Rate 108 H 94 Respiratory 18 16 Rate Blood Pressure 135/68 134/74 O2 Sat by Pulse 93 L 95 Oximetry - Reevaluation(s) Reevaluation #1: 11/06/24 06:21 Medical records reviewed (Jeffery Del Valle) Reevaluation #2: 11/06/24 06:21 Patient symptoms improving continue to improve (Jeffery Del Valle) Reevaluation #3: Patient informed of results questions answered (Jeffery Del Valle) Reevaluation #4: W patient has persistent shortness of breath (Jeffery Del Valle) Reevaluation #5: Differential Dyspnea: Coronary syndrome, arrhythmia, tamponade, asthma, COPD, pulmonary embolism, pneumonia, pneumothorax, pulmonary effusion, anaphylaxis, diabetic ketoacidosis, flailed chest, pulmonary contusion, diaphragmatic rupture, anemia, neuromuscular, this is not meant to be an all-inclusive list. (Jeffery Del Valle) Medical Decision Making - Lab Data Result diagrams: 11/06/24 05:38 11/06/24 05:38 <Jeffery Murray - Last Filed: 11/06/24 07:51> - Lab Data Result diagrams: 11/12/24 06:23 11/12/24 06:23 - EKG Data -: EKG Interpreted by Me (EKG is sinus 90 MD 200 QRS 161 QTc 467) - Radiology Data Radiology results: report reviewed (Chest x-ray positive for CHF), image reviewed <Jeffery Del Valle - Last Filed: 11/12/24 13:39> - Medical Decision Making EKG is interpreted by myself but EKG shows a sinus rhythm at 90 bpm MD was 200 QRS is 161 QT interval is 419 QTc is 467. Patient EKG shows a left bundle branch block Was patient admitted / discharged? Hospital course, mention meds given and rou te, prescriptions, significant lab abnormalities, going to OR and other pertinent info. @ -Patient was signed out to me at [address] Del Valle. I went back into reevaluate the patient she has crackles in the bases her BNP was elevated the x- ray likely pulmonary edema so gave the patient Lasix and Nitropaste. Patient also got Vasotec IV and patient will be admitted to [facility] physicians who I spoke with for acute pulmonary edema Undiagnosed new problem with uncertain prognosis? @ -[No] Drug Therapy requiring intensive monitoring for toxicity (Heparin, Nitro, Insulin, Cardizem)? @ -[No] Were any procedures done? @ -[No] Diagnosis/symptom? @ -Acute pulmonary edema Acute, or Chronic, or Acute on Chronic? @ -Acute Uncomplicated (without systemic symptoms) or Complicated (systemic symptoms)? @ -Complicated Side effects of treatment? @ -[No] Exacerbation, Progression, or Severe Exacerbation? @ -[No] Poses a threat to life or bodily function? How? (Chest pain, [place], [place], pneumonia, PE, COPD, DKA, ARF, appy, cholecystitis, CVA, Diverticulitis, Homicidal, Suicidal, threat to staff... and all critical care pts) @ -Yes this can lead to hypoxia and endorgan dysfunction (Jeffery Murray) - Lab Data Lab Results 11/06/24 11/06/24 11/06/24 Range/Units 05:38 05:38 05:38 WBC 7.6 (3.8-10.6) k/uL RBC 4.33 (3.80-5.40) m/uL Hgb 13.1 (11.4-16.0) gm/dL Hct 40.1 (34.0-46.0) % MCV 92.6 (80.0-100.0) fL MCH 30.2 (25.0-35.0) pg MCHC 32.6 (31.0-37.0) g/dL RDW 14.9 (11.5-15.5) % Plt Count 172 (150-450) k/uL MPV 8.0 Neutrophils % 59 % Lymphocytes % 24 % Monocytes % 7 % Eosinophils % 7 % Basophils % 0 % Neutrophils # 4.5 (1.3-7.7) k/uL Lymphocytes # 1.8 (1.0-4.8) k/uL Monocytes # 0.5 (0-1.0) k/uL Eosinophils # 0.5 (0-0.7) k/uL Basophils # 0.0 (0-0.2) k/uL PT 11.6 (10.0-12.5) sec INR 1.1 (<1.2) APTT 22.0 (22.0-30.0) sec Sodium 134 L (137-145) mmol/L Potassium 3.7 (3.5-5.1) mmol/L Chloride 103 (98-107) mmol/L Carbon Dioxide 18 L (22-30) mmol/L Anion Gap 13 mmol/L BUN 31 H (7-17) mg/dL Creatinine 0.94 (0.52-1.04) mg/dL Est GFR (CKD-EPI)AfAm 65 (>60 ml/min/1.73 sqM) Est GFR (CKD-EPI)NonAf 56 (>60 ml/min/1.73 sqM) Glucose 146 H (74-99) mg/dL Calcium 9.3 (8.4-10.2) mg/dL Magnesium 1.6 (1.6-2.3) mg/dL Total Bilirubin 0.5 (0.2-1.3) mg/dL AST 26 (14-36) U/L ALT 20 (4-34) U/L Alkaline Phosphatase 79 (38-126) U/L Troponin I (0.000-0.034) ng/mL NT-Pro-B Natriuret Pep 39774 pg/mL Total Protein 6.5 (6.3-8.2) g/dL Albumin 4.0 (3.5-5.0) g/dL Influenza Type A (PCR) (Not Detectd) Influenza Type B (PCR) (Not Detectd) RSV (PCR) (Not Detectd) SARS-CoV-2 (PCR) (Not Detectd) 11/06/24 11/06/24 Range/Units 05:38 05:46 WBC (3.8-10.6) k/uL RBC (3.80-5.40) m/uL Hgb (11.4-16.0) gm/dL Hct (34.0-46.0) % MCV (80.0-100.0) fL MCH (25.0-35.0) pg MCHC (31.0-37.0) g/dL RDW (11.5-15.5) % Plt Count (150-450) k/uL MPV Neutrophils % % Lymphocytes % % Monocytes % % Eosinophils % % Basophils % % Neutrophils # (1.3-7.7) k/uL Lymphocytes # (1.0-4.8) k/uL Monocytes # (0-1.0) k/uL Eosinophils # (0-0.7) k/uL Basophils # (0-0.2) k/uL PT (10.0-12.5) sec INR (<1.2) APTT (22.0-30.0) sec Sodium (137-145) mmol/L Potassium (3.5-5.1) mmol/L Chloride (98-107) mmol/L Carbon Dioxide (22-30) mmol/L Anion Gap mmol/L BUN (7-17) mg/dL Creatinine (0.52-1.04) mg/dL Est GFR (CKD-EPI)AfAm (>60 ml/min/1.73 sqM) Est GFR (CKD-EPI)NonAf (>60 ml/min/1.73 sqM) Glucose (74-99) mg/dL Calcium (8.4-10.2) mg/dL Magnesium (1.6-2.3) mg/dL Total Bilirubin (0.2-1.3) mg/dL AST (14-36) U/L ALT (4-34) U/L Alkaline Phosphatase (38-126) U/L Troponin I 0.013 (0.000-0.034) ng/mL NT-Pro-B Natriuret Pep pg/mL Total Protein (6.3-8.2) g/dL Albumin (3.5-5.0) g/dL Influenza Type A (PCR) Not Detected (Not Detectd) Influenza Type B (PCR) Not Detected (Not Detectd) RSV (PCR) Not Detected (Not Detectd) SARS-CoV-2 (PCR) Not Detected (Not Detectd) Disposition Time of Disposition: 07:53 <Jeffery Murrya - Last Filed: 11/06/24 07:51> <Jeffery Del Valle - Last Filed: 11/12/24 13:39> Clinical Impression: Acute pulmonary edema Disposition: ADMITTED IP TO THIS HOSP
[2024-11-06 06:14] LABS: INR 1.1 (<1.2); Prothrombin Time 11.6 sec (10.0-12.5)
[2024-11-06 06:18] LABS: ALT 20 U/L (4-34); AST 26 U/L (14-36); African American GFR (CKD) 65 (>60 ml/min/1.73 sqM); Alkaline Phosphatase 79 U/L (38-126); Anion Gap 13 mmol/L; Blood Urea Nitrogen 31 mg/dL (7-17); Calcium 9.3 mg/dL (8.4-10.2); Carbon Dioxide 18 mmol/L (22-30); Chloride 103 mmol/L (98-107); Glucose 146 mg/dL (74-99); Magnesium 1.6 mg/dL (1.6-2.3); Non-African American GFR(CKD) 56 (>60 ml/min/1.73 sqM); Potassium 3.7 mmol/L (3.5-5.1); Sodium 134 mmol/L (137-145); Total Bilirubin 0.5 mg/dL (0.2-1.3); Total Protein 6.5 g/dL (6.3-8.2)
[2024-11-06 06:24] LABS: NT-Pro-B-Type Natriuretic Pept 16000 pg/mL
[2024-11-06 06:39] LABS: Influenza A Not Detected (Not Detectd); Influenza B Not Detected (Not Detectd); RSV Not Detected (Not Detectd)
[2024-11-06] MEDS: SODIUM CHLORIDE 0.9% 1,000 ML IV STA (06:54)
[2024-11-06] MEDS: LORazepam 2 MG/ML INJ IV STA (06:54)
[2024-11-06] MEDS: methylPREDNISolone SOD SUCCI 125 MG/2 ML VIAL IV STA (06:56)
--- NOTE | 2024-11-06 07:07 | XR ---
EXAMINATION TYPE: XR chest 1V portable DATE OF EXAM: 11/06/2024 6:01 AM COMPARISON: Chest radiographs from 11/17/2013 CLINICAL INDICATION: Female, 83 years old with history of sob; [facility] TECHNIQUE: XR chest 1V portable Frontal view of the chest. FINDINGS: Lungs/Pleura: There is no evidence of pleural effusion, focal consolidation, or pneumothorax. Pulmonary vascularity: Pulmonary vascular congestion. Heart/mediastinum: Cardiomediastinal silhouette is unremarkable. Musculoskeletal: No acute osseous pathology. IMPRESSION: Bibasilar airspace opacities with mild cardiomegaly and pulmonary vascular congestion correlate with serum BNP. [facility], , 11/06/2024 7:05 AM
[2024-11-06] MEDS: IPRATROPIUM-ALBUTEROL 3 ML NEB INHALATION STA ×2 (07:36→07:45)
[2024-11-06] MEDS: SODIUM CHLORIDE 0.9% 500 ML 500 ML IV STA (07:48)
[2024-11-06] MEDS: NITROGLYCERIN OINT 1 INCH/GM PACKET TOPICAL STA (08:31)
[2024-11-06] MEDS: ENALAPRILAT 1.25 MG/ML 1 ML VIAL IVP STA (08:31)
[2024-11-06] MEDS: FUROSEMIDE 10 MG/ML 2 ML VIAL IV ONE (08:31)
[2024-11-06] MEDS: NITROGLYCERIN OINT 1 INCH/GM PACKET TOPICAL SCH (08:32)
[2024-11-06] MEDS ORDERED: ALPRAZolam 0.5 MG TAB PO PRN (10:11)
[2024-11-06] MEDS ORDERED: NITROGLYCERIN SL TABS 0.4 MG TAB SUBLINGUAL PRN (10:11)
[2024-11-06] MEDS: SODIUM CHLORIDE 0.9% 1,000 ML IV SCH (10:35)
[2024-11-06] MEDS: HEPARIN SODIUM 1,000 UN/ML (10ML VL) IV ONE (10:36)
[2024-11-06] MEDS: ASPIRIN 81 MG PO SCH (10:41)
[2024-11-06] MEDS: lisinopriL 5 MG TAB PO SCH (11:23)
[2024-11-06] MEDS: HEPARIN SOD,PORK IN 0.45% NACL 25,000 UNIT in 0.45% NACL 1 250ML.BAG IV SCH (11:23)
[2024-11-06] MEDS: METOPROLOL TARTRATE 25 MG TAB PO SCH (11:23)
--- NOTE | 2024-11-06 12:26 | P.HPIM ---
History of Present Illness H&P Date: 11/06/24 83 year old F with PMH of HTN, Depression, PAD presents to the ED for shortness of breath worse with exertion over the past days. She reports lower extremity swelling that is has had for "ages". She reports no orthopnea. She denies any headache, nausea or vomiting, fever or chills, cough, chest pain, palpitations, changes in urination or bowel habits. No changes in appetite or weight. Denies numbness/weakness/tingling of the extremities. In the ED she underwent extensive evaluation. BP 178/108, HR 100, RR 20, T 97.6, 94% on 4L NC. CBC, Coag panel, CMP significant for Na 134, bicarb 18, BUN 31, glu 146. Trop 0.013, 0.13, 0.257. BNP 80801. COVID RSV Flu neg. CXR showed pulmonary vascular congestion. EKG sinus rhythm with LBBB. Patient is admitted for further workup and management. General: non toxic, no distress, appears at stated age Derm: warm, dry Head: atraumatic, normocephalic, symmetric Eyes: EOMI, no lid lag, anicteric sclera Mouth: no lip lesion, mucus membranes moist Cardiovascular: S1S2 tachy, no murmur Lungs: Decreased BS bilateral, no rhonchi, no rales , no accessory muscle use Ext: no gross muscle atrophy, no edema, no contractures Neuro: no focal neuro deficits Psych: Alert, oriented, appropriate affect Based on my assessment of this patient, this patient meets a high complexity level of care. Acute CHF exacerbation: CXR findings + elevated BNP. Status post Lasix 20 mg IV x 1. Start Lasix 20 mg IV QD. Echo ordered. Strict intake and outtake. Daily weights. Monitor renal function and electrolytes. Cardiology consulted. NSTEMI: Heparin drip. Monitor APTT. ASA 81 mg PO QD. Metoprolol 25 mg PO BID. Nitro ointment. Cardiology on board. PAD: Holding cilostazol and Xarelto. Management as above. Depression: Lexapro 10 mg PO QD. HTN: Lisinopril 5 mg PO QD. Metoprolol 25 mg PO BID. CODE STATUS: FULL CODE DVT Prophylaxis: Heparin drip. GI Prophylaxis: Designated medical POA if patient is not able to make medical decisions for themselves: I have reviewed the following fitness sales consultant notes: ED note I have reviewed the results of the following tests: As above. I have ordered the following tests: BMP. Mag in the AM. I have discussed the care of this patient with the following independent historian: I have independently interpreted the following test below: CXR. I have discussed the management of this patient with the following physician: Past Medical History Past Medical History: Hearing Disorder / Deafness, Hypertension Additional Past Medical History / Comment(s): Osteoporosis History of Any Multi-Drug Resistant Organisms: None Reported Past Surgical History: Bowel Resection, Section, Orthopedic Surgery Additional Past Surgical History / Comment(s): L elbow surgery. COLONOSCOPY Past Anesthesia/Blood Transfusion Reactions: Previous Problems w/ Anesthesia, Postoperative Nausea & Vomiting (PONV) Additional Past Anesthesia/Blood Transfusion Reaction / Comment(s): HYPER FEELING AFTER SURGERY SOMETIMES WITH ANESTHESIA Past Psychological History: No Psychological Hx Reported Smoking Status: Former smoker Past Alcohol Use History: None Reported Past Drug Use History: None Reported - Past Family History Father Family Medical History: Cancer Mother Family Medical History: No Reported History Medications and Allergies Home Medications Medication Instructions Recorded Confirmed Type Aspirin 81 mg PO DAILY 07/14/14 11/06/24 History Lisinopril [Prinivil] 5 mg PO DAILY 07/14/14 11/06/24 History Rivaroxaban [Xarelto] 2.5 mg PO BID 01/05/23 11/06/24 History Simvastatin [Zocor] 40 mg PO HS 01/05/23 11/06/24 History cilostazoL [Pletal] 50 mg PO DAILY 01/05/23 11/06/24 History Escitalopram Oxalate [Lexapro] 10 mg PO DAILY 11/06/24 11/06/24 History Metoprolol Tartrate [Lopressor] 25 mg PO BID 11/06/24 11/06/24 History Allergies Allergy/AdvReac Type Severity Reaction Status Date / Time No Known Allergies Allergy Verified 11/06/24 08:16 Physical Exam Vitals: Vital Signs Temp Pulse Resp BP Pulse Ox 11/06/24 11:34 98 F 108 H 18 135/68 93 L 11/06/24 07:56 104 H 11/06/24 07:48 102 H 11/06/24 05:23 97.6 F 100 20 178/108 94 L Intake and Output 0111/06/24 11/06/24 22:59 06:59 14:59 Other: Weight 38.555 kg Results CBC & Chem 7: 11/06/24 05:38 11/06/24 05:38 Labs: Abnormal Lab Results - Last 24 Hours (Table) 11/06/24 11/06/24 11/06/24 Range/Units 05:38 08:53 11:09 Sodium 134 L (137-145) mmol/L Carbon Dioxide 18 L (22-30) mmol/L BUN 31 H (7-17) mg/dL Glucose 146 H (74-99) mg/dL Troponin I 0.130 H* 0.257 H* (0.000-0.034) ng/mL
--- NOTE | 2024-11-06 12:31 | P.CRDCN ---
History of Present Illness Consult date: 11/06/24 Reason for Consult (text): Acute pulmonary edema History of present illness: This is an 83-year-old female patient of Dr. Parr with past medical history of hypertension, hyperlipidemia, left bundle branch block, cardiomyopathy with previous EF of 35 to 40%, remote history of tobacco use and dependence, PAD. We have been asked to evaluate the patient for acute pulmonary edema. Patient presented to the hospital due to shortness of breath cough and anxiety. Patient also had some nausea and weakness. Blood pressure 135/68, heart rate 108, pulse ox 93% on 2 L nasal cannula. Patient is seen today in the emergency center waiting for bed on the cardiac stepdown unit. Patient is status post 1 dose of IV Lasix 20 mg and started on Nitropaste, status post 1.5 L IV fluid. Patient has been started on IV Lasix 20 mg daily -EKG: Sinus rhythm with left bundle branch block, LAD -Chest x-ray: Bibasilar airspace opacities with mild cardiomegaly and pulmonary vascular congestion. -Laboratory studies: CBC, INR unremarkable. Sodium 134, potassium 3.7, BUN 31 creatinine 0.94. Troponin 0.013 and 0.13. proBNP 16,000. Influenza, RSV COV ID-19 not detected. -Home cardiac medications: Aspirin 81 mg daily, Pletal 50 mg daily, lisinopril 5 mg daily, metoprolol tartrate 25 mg twice daily, Xarelto 2.5 mg twice daily, simvastatin 40 mg at bedtime. 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 Sluggish flow of the distal aorta with some 30% narrowing. -Echocardiogram performed in the office on 03/05/2022 revealed EF of 40%, moderate concentric left ventricular hypertrophy. Moderate mitral regurgitation. Mild tricuspid regurgitation, PASP 23 mmHg. Mild pulmonic regurgitation. -Lexiscan Cardiolite stress test performed in the office on 05/12/2021 revealed nondiagnostic Lexiscan stress test because of baseline left bundle branch block. Small fixed defect involving the anterior apical and septal area most probably secondary to left bundle branch block. No definite reversible ischemia. Gated images show atypical motion of the septum with EF 50%. Review Of Systems: At the time of my exam: CONSTITUTIONAL: Denies fever or chills. Reports generalized weakness. HEENT: Denies blurred vision, vision changes, or eye pain. Denies hemoptysis CARDIOVASCULAR: Denies chest pain. Denies orthopnea. Denies PND. Denies pa lpitations RESPIRATORY: Denies shortness of breath. GASTROINTESTINAL: Denies abdominal pain. Denies nausea or vomiting. HEMATOLOGIC: Denies bleeding disorders. GENITOURINARY: Denies any blood in urine. SKIN: Denies puritis. Denies rash. Physical examination: Gen: This is an 83-year-old female in no acute distress VS: reviewed HEENT: Head is atraumatic, normocephalic. Pupils equal, round. Sclerae is anicteric. NECK: Supple. No JVD. LUNGS: Clear to auscultation. No wheezes or rhonchi. No intercostal retractions. HEART: Regular rate and rhythm. No murmur. ABDOMEN: Soft No tenderness. EXTREMITIES: No pedal edema. No calf tenderness. NEUROLOGICAL: Patient is awake, alert. Assessment: NSTEMI Acute on chronic heart failure Hypertension Hyperlipidemia Left bundle branch block Cardiomyopathy with previous EF 35 to 40% with repeat at 50% PAD Remote history of tobacco use and dependence Moderate protein calorie malnutrition with BMI of 16 Plan: Resume patient's home cardiac medications with the following changes Increase statin to 40 mg Hold Xarelto Start patient on a heparin drip Schedule patient for cardiac catheterization tomorrow with Dr. Parr N.p.o. after midnight Patient is on IV Lasix 20 mg daily Monitor MICAELA and daily weights, electrolytes and renal function Obtain 2-D echocardiogram and Doppler study to assess cardiac structure and function Further recommendations to follow based upon clinical course Thank you kindly for this consultation. Nurse practitioner note has been reviewed, I agree with documented findings and plan of care. Patient was seen and examined. Past Medical History Past Medical History: Hearing Disorder / Deafness, Hypertension Additional Past Medical History / Comment(s): Osteoporosis History of Any Multi-Drug Resistant Organisms: None Reported Past Surgical History: Bowel Resection, Section, Orthopedic Surgery Additional Past Surgical History / Comment(s): L elbow surgery. COLONOSCOPY Past Anesthesia/Blood Transfusion Reactions: Previous Problems w/ Anesthesia, Postoperative Nausea & Vomiting (PONV) Additional Past Anesthesia/Blood Transfusion Reaction / Comment(s): HYPER FEELING AFTER SURGERY SOMETIMES WITH ANESTHESIA Past Psychological History: No Psychological Hx Reported Smoking Status: Former smoker Past Alcohol Use History: None Reported Past Drug Use History: None Reported - Past Family History Father Family Medical History: Cancer Mother Family Medical History: No Reported History Medications and Allergies Home Medications Medication Instructions Recorded Confirmed Type Aspirin 81 mg PO DAILY 07/14/14 11/06/24 History Lisinopril [Prinivil] 5 mg PO DAILY 07/14/14 11/06/24 History Rivaroxaban [Xarelto] 2.5 mg PO BID 01/05/23 11/06/24 History Simvastatin [Zocor] 40 mg PO HS 01/05/23 11/06/24 History cilostazoL [Pletal] 50 mg PO DAILY 01/05/23 11/06/24 History Escitalopram Oxalate [Lexapro] 10 mg PO DAILY 11/06/24 11/06/24 History Metoprolol Tartrate [Lopressor] 25 mg PO BID 11/06/24 11/06/24 History Allergies Allergy/AdvReac Type Severity Reaction Status Date / Time No Known Allergies Allergy Verified 11/06/24 08:16 Physical Exam Vitals: Vital Signs Temp Pulse Resp BP Pulse Ox 11/06/24 07:56 104 H 11/06/24 07:48 102 H 11/06/24 05:23 97.6 F 100 20 178/108 94 L Intake and Output 11/05/24 11/06/24 11/06/24 22:59 06:59 14:59 Other: Weight 38.555 kg Results 11/06/24 05:38 11/06/24 05:38 Cardiac Enzymes 11/06/24 11/06/24 11/06/24 Range/Units 05:38 05:38 08:53 AST 26 (14-36) U/L Troponin I 0.013 0.130 H* (0.000-0.034) ng/mL Coagulation 11/06/24 Range/Units 05:38 PT 11.6 (10.0-12.5) sec APTT 22.0 (22.0-30.0) sec CBC 11/06/24 Range/Units 05:38 WBC 7.6 (3.8-10.6) k/uL RBC 4.33 (3.80-5.40) m/uL Hgb 13.1 (11.4-16.0) gm/dL Hct 40.1 (34.0-46.0) % Plt Count 172 (150-450) k/uL Comprehensive Metabolic Panel 11/06/24 Range/Units 05:38 Sodium 134 L (137-145) mmol/L Potassium 3.7 (3.5-5.1) mmol/L Chloride 103 (98-107) mmol/L Carbon Dioxide 18 L (22-30) mmol/L BUN 31 H (7-17) mg/dL Creatinine 0.94 (0.52-1.04) mg/dL Glucose 146 H (74-99) mg/dL Calcium 9.3 (8.4-10.2) mg/dL AST 26 (14-36) U/L ALT 20 (4-34) U/L Alkaline Phosphatase 79 (38-126) U/L Total Protein 6.5 (6.3-8.2) g/dL Albumin 4.0 (3.5-5.0) g/dL Current Medications Generic Name Dose Route Start Last Admin Trade Name Freq PRN Reason Stop Dose Admin Nitroglycerin 1 inch 11/07/24 09:00 Nitroglycerin Oint 1 Inch/Gm Packet TOPICAL QID RUPA Intake and Output 11/05/24 11/06/24 11/06/24 22:59 06:59 14:59 Other: Weight 38.555 kg 11/06/24 05:38 11/06/24 05:38
[2024-11-06] MEDS: ATORVASTATIN 40 MG TAB PO SCH (19:30)
[2024-11-07] MEDS: HEPARIN SODIUM 1,000 UN/ML (10ML VL) IV PRN (03:48)
[2024-11-07] MEDS: ASPIRIN 325 MG TAB PO ONE (06:15)
[2024-11-07] MEDS: ATORVASTATIN 80 MG TAB PO ONE (06:15)
[2024-11-07] MEDS ORDERED: HEPARIN SODIUM,PORCINE 10,000 UNIT in SODIUM CHLORIDE 0.9% 1,000 ML IRRIGATION PRN (07:00)
[2024-11-07] MEDS ORDERED: HEPARIN SODIUM,PORCINE (1 ML) 2,500 UNIT in SODIUM CHLORIDE 0.9% 250 ML IRRIGATION PRN (07:00)
[2024-11-07] MEDS: FUROSEMIDE 10 MG/ML 2 ML VIAL IV SCH (07:27)
[2024-11-07] MEDS: ALPRAZolam 0.25 MG TAB PO PRN (07:33)
[2024-11-07 07:53] LABS: Basophils % (A) 0 %; Eosinophils % (A) 0 %; HCT 38.6 % (34.0-46.0); HGB 12.9 gm/dL (11.4-16.0); Lymphocytes # (A) 1.2 k/uL (1.0-4.8); Lymphocytes % (A) 12 %; MCH 30.9 pg (25.0-35.0); MCHC 33.5 g/dL (31.0-37.0); MCV 92.2 fL (80.0-100.0); Mean Platelet Volume 8.8; Monocytes # (A) 0.8 k/uL (0-1.0); Monocytes % (A) 7 %; Neutrophils # (A) 8.5 k/uL (1.3-7.7); Neutrophils % (A) 79 %; Platelet Count 173 k/uL (150-450); RBC 4.19 m/uL (3.80-5.40); RDW 15.4 % (11.5-15.5); WBC 10.7 k/uL (3.8-10.6)
[2024-11-07 08:01] LABS: Prothrombin Time 11.5 sec (10.0-12.5)
[2024-11-07] MEDS: FUROSEMIDE 10 MG/ML 4 ML VIAL IV STA (08:06)
[2024-11-07 08:08] LABS: Glucose,Whole Blood 227 mg/dL (70-110)
[2024-11-07 08:36] LABS: African American GFR (CKD) 57 (>60 ml/min/1.73 sqM); Anion Gap 7 mmol/L; Blood Urea Nitrogen 29 mg/dL (7-17); Calcium 8.8 mg/dL (8.4-10.2); Carbon Dioxide 25 mmol/L (22-30); Chloride 104 mmol/L (98-107); Glucose 98 mg/dL (74-99); Magnesium 1.7 mg/dL (1.6-2.3); Non-African American GFR(CKD) 49 (>60 ml/min/1.73 sqM); Potassium 4.7 mmol/L (3.5-5.1); Sodium 136 mmol/L (137-145)
--- NOTE | 2024-11-07 08:45 | XR ---
EXAMINATION TYPE: XR chest 1V DATE OF EXAM: 11/07/2024 8:31 AM COMPARISON: 11/06/2024 CLINICAL INDICATION: Female, 83 years old with history of SOB, increased 02 demands, TECHNIQUE: XR chest 1V view(s) obtained. FINDINGS: The heart size is normal. The pulmonary vasculature is indistinct. Diffuse increased lung markings are present. Correlate for pulmonary edema Chronic rotator cuff tears are present bilaterally IMPRESSION: 1. Diffuse increased lung markings. Pulmonary edema likely within the differential. Other etiologies are not excluded. Follow-up recommended [facility], , 11/07/2024 8:43 AM
--- NOTE | 2024-11-07 13:08 | P.PN ---
Subjective Progress Note Date: 11/07/24 Reason for Consult (text): Acute pulmonary edema History of present illness: This is an 83-year-old female patient of Dr. Parr with past medical history of hypertension, hyperlipidemia, left bundle branch block, cardiomyopathy with previous EF of 35 to 40%, remote history of tobacco use and dependence, PAD. We have been asked to evaluate the patient for acute pulmonary edema. Patient presented to the hospital due to shortness of breath cough and anxiety. Patient also had some nausea and weakness. Blood pressure 135/68, heart rate 108, pulse ox 93% on 2 L nasal cannula. Patient is seen today in the emergency center waiting for bed on the cardiac stepdown unit. Patient is status post 1 dose of IV Lasix 20 mg and started on Nitropaste, status post 1.5 L IV fluid. Patient has been started on IV Lasix 20 mg daily -EKG: Sinus rhythm with left bundle branch block, LAD -Chest x-ray: Bibasilar airspace opacities with mild cardiomegaly and pulmonary vascular congestion. -Laboratory studies: CBC, INR unremarkable. Sodium 134, potassium 3.7, BUN 31 creatinine 0.94. Troponin 0.013 and 0.13. proBNP 16,000. Influenza, RSV COVID-19 not detected. -Home cardiac medications: Aspirin 81 mg daily, Pletal 50 mg daily, lisinopril 5 mg daily, metoprolol tartrate 25 mg twice daily, Xarelto 2.5 mg twice daily, simvastatin 40 mg at bedtime. 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 Sluggish flow of the distal aorta with some 30% narrowing. -Echocardiogram performed in the office on 03/05/2022 revealed EF of 40%, moderate concentric left ventricular hypertrophy. Moderate mitral regurgitation. Mild tricuspid regurgitation, PASP 23 mmHg. Mild pulmonic regurgitation. -Lexiscan Cardiolite stress test performed in the office on 05/12/2021 revealed nondiagnostic Lexiscan stress test because of baseline left bundle branch block. Small fixed defect involving the anterior apical and septal area most probably secondary to left bundle branch block. No definite reversible ischemia. Gated images show atypical motion of the septum with EF 50%. 11/07 Patient was scheduled for cardiac catheterization today with Dr. Parr. A team called this morning for fluid overload patient was given additional dose of IV Lasix 40 mg and was placed on BiPAP. Cardiac catheterization will be postponed until Sunday. Blood pressure 90/59, heart rate 74, pulse ox 100% on BiPAP at FiO2 80%. Repeat blood work reveals WBC 10.7, hemoglobin 12.9. Sodium 136, potassium 4.7, BUN 29 creatinine 1.05. Repeat chest x-ray Reveals diffuse increased lung markings. Pulmonary edema likely within the differential. Other etiologies not excluded. Echocardiogram is pending. Physical examination: Gen: This is an 83-year-old female in no acute distress VS: reviewed HEENT: Head is atraumatic, normocephalic. Pupils equal, round. Sclerae is anicteric. NECK: Supple. No JVD. LUNGS: Crackles bilateral bases. No intercostal retractions. HEART: Regular rate and rhythm. No murmur. ABDOMEN: Soft No tenderness. EXTREMITIES: No pedal edema. No calf tenderness. NEUROLOGICAL: Patient is awake, alert. Assessment: NSTEMI Acute on chronic heart failure Hypertension Hyperlipidemia Left bundle branch block Cardiomyopathy with previous EF 35 to 40% with repeat at 50% PAD Remote history of tobacco use and dependence Moderate protein calorie malnutrition with BMI of 16 Plan: Continue current cardiac medications Hold Xarelto Continue heparin drip Cardiac catheterization will most likely be rescheduled for Sunday with Dr. Parr Patient is on IV Lasix 20 mg daily Monitor MICAELA and daily weights, electrolytes and renal function Obtain 2-D echocardiogram and Doppler study to assess cardiac structure and function Further recommendations to follow based upon clinical course Thank you kindly for this consultation. Nurse practitioner note has been reviewed, I agree with documented findings and plan of care. Patient was seen and examined. Objective - Vital Signs Vital signs: Vital Signs Temp 97.5 F L 11/07/24 07:20 Pulse 106 H 11/07/24 08:19 Resp 27 H 11/07/24 08:19 BP 160/102 11/07/24 08:19 Pulse Ox 98 11/07/24 08:19 FiO2 80 11/07/24 08:19 Intake & Output 11/06/24 11/07/24 11/07/24 18:59 06:59 18:59 Intake Total 41.232 412.001 Output Total 100 Balance 41.232 412.001 -100 Weight 38.555 kg 38.6 kg Intake: IV 10 Invasive Line 1 10 Intake, IV Titration 31.232 52.001 Amount Heparin Sod,Pork in 0.45% 31.232 52.001 NaCl 25,000 unit In 0.45 % NaCl 1 250ml.bag @ 12 UNITS/KG/HR 4.627 mls/hr IV .Q24H [facility] Rx#: [id number] Oral 360 Output: Urine 100 Other: Voiding Method Toilet Toilet # Voids 1 1 1 - Labs CBC & Chem 7: 11/07/24 07:11 11/07/24 07:11 Labs: Abnormal Lab Results - Last 24 Hours (Table) 11/06/24 11/06/24 11/06/24 Range/Units 08:53 11:09 16:59 WBC (3.8-10.6) k/uL Neutrophils # (1.3-7.7) k/uL APTT 37.9 H (22.0-30.0) sec Sodium (137-145) mmol/L BUN (7-17) mg/dL Creatinine (0.52-1.04) mg/dL POC Glucose (mg/dL) (70-110) mg/dL Troponin I 0.130 H* 0.257 H* (0.000-0.034) ng/mL 11/06/24 11/07/24 11/07/24 Range/Units 23:29 07:11 07:11 WBC 10.7 H (3.8-10.6) k/uL Neutrophils # 8.5 H (1.3-7.7) k/uL APTT 33.0 H 47.0 H (22.0-30.0) sec Sodium (137-145) mmol/L BUN (7-17) mg/dL Creatinine (0.52-1.04) mg/dL POC Glucose (mg/dL) (70-110) mg/dL Troponin I (0.000-0.034) ng/mL 11/07/24 11/07/24 Range/Units 07:11 08:06 WBC (3.8-10.6) k/uL Neutrophils # (1.3-7.7) k/uL APTT (22.0-30.0) sec Sodium 136 L (137-145) mmol/L BUN 29 H (7-17) mg/dL Creatinine 1.05 H (0.52-1.04) mg/dL POC Glucose (mg/dL) 227 H (70-110) mg/dL Troponin I (0.000-0.034) ng/mL
--- NOTE | 2024-11-07 16:55 | P.PN ---
Subjective Progress Note Date: 11/07/24 83 year old F with PMH of HTN, Depression, PAD presents to the ED for shortness of breath worse with exertion over the past days. She reports lower extremity swelling that is has had for "ages". She reports no orthopnea. She denies any headache, nausea or vomiting, fever or chills, cough, chest pain, palpitations, changes in urination or bowel habits. No changes in appetite or weight. Denies numbness/weakness/tingling of the extremities. In the ED she underwent extensive evaluation. BP 178/108, HR 100, RR 20, T 97.6, 94% on 4L NC. CBC, Coag panel, CMP significant for Na 134, bicarb 18, BUN 31, glu 146. Trop 0.013, 0.13, 0.257. BNP 58422. COVID RSV Flu neg. CXR showed pulmonary vascular congestion. EKG sinus rhythm with LBBB. Patient is admitted for further workup and management. 11/07 Patient was seen and examined. More short of breath this morning, A-team was called. She is currently on BiPAP. Initially Cardiology was planning on doing a cath today which was cancelled due to change in respiratory status. CXR shows increased pulmonary edema compared to yesterday. Lasix is increased to 40 mg IV BID. Maintained on heparin drip. Patient noted to be retaining ~ 700 cc of urine, Delvalle catheter ordered. CBC, Coag panel, CMP significant for WBC 10.7, APTT 47, BUN 29, Cr 1.05. Mag 1.7. General: non toxic, no distress, appears at stated age Derm: warm, dry Head: atraumatic, normocephalic, symmetric Eyes: EOMI, no lid lag, anicteric sclera Mouth: no lip lesion, mucus membranes moist Cardiovascular: S1S2 tachy, no murmur Lungs: Decreased BS bilateral, no rhonchi, no rales , no accessory muscle use Ext: no gross muscle atrophy, no edema, no contractures Neuro: no focal neuro deficits Psych: Alert, oriented, appropriate affect Based on my assessment of this patient, this patient meets a high complexity level of care. Acute CHF exacerbation: CXR findings + elevated BNP. Increase Lasix to 40 mg IV BID. Echo ordered. Strict intake and outtake. Daily weights. Monitor renal function and electrolytes. Cardiology on board. NSTEMI: Heparin drip. Monitor APTT. ASA 81 mg PO QD. Metoprolol 25 mg PO BID. Nitro ointment. Cardiac cath once respiratory status more stable. Cardiology on board. NIXON: Due to forced diuresis. Monitor renal function and electrolytes while on Lasix. PAD: Holding cilostazol and Xarelto. Management as above. Depression: Lexapro 10 mg PO QD. HTN: Lisinopril 5 mg PO QD. Metoprolol 25 mg PO BID. CODE STATUS: FULL CODE DVT Prophylaxis: Heparin drip. GI Prophylaxis: Designated medical POA if patient is not able to make medical decisions for themselves: I have reviewed the following home service consultant notes: Cardiology note I have reviewed the results of the following tests: CBC, Coag panel, CMP. I have ordered the following tests: BMP, Mag, Coag panel in the AM. I have discussed the care of this patient with the following independent historian: CLAUDIA. I have independently interpreted the following test below: CXR. I have discussed the management of this patient with the following physician: Objective - Vital Signs Vital signs: Vital Signs Temp 97.2 F L 11/07/24 11:24 Pulse 85 11/07/24 15:25 Resp 28 H 11/07/24 15:25 BP 135/76 11/07/24 15:25 Pulse Ox 98 11/07/24 15:25 FiO2 45 11/07/24 15:25 Intake & Output 11/06/24 11/07/24 11/07/24 18:59 06:59 18:59 Intake Total 41.232 412.001 Output Total 1650 Balance 41.232 412.001 -1650 Weight 38.555 kg 38.6 kg 38.6 kg Intake: IV 10 Invasive Line 1 10 Intake, IV Titration 31.232 52.001 Amount Heparin Sod,Pork in 0.45% 31.232 52.001 NaCl 25,000 unit In 0.45 % NaCl 1 250ml.bag @ 12 UNITS/KG/HR 4.627 mls/hr IV .Q24H [facility] Rx#: [id number] Oral 360 Output: Urine 1650 Other: Voiding Method Toilet Toilet Indwelling Catheter # Voids 1 1 1 - Labs CBC & Chem 7: 11/07/24 07:11 11/07/24 07:11 Labs: Abnormal Lab Results - Last 24 Hours (Table) 11/06/24 11/06/24 11/07/24 Range/Units 16:59 23:29 07:11 WBC 10.7 H (3.8-10.6) k/uL Neutrophils # 8.5 H (1.3-7.7) k/uL APTT 37.9 H 33.0 H (22.0-30.0) sec Sodium (137-145) mmol/L BUN (7-17) mg/dL Creatinine (0.52-1.04) mg/dL POC Glucose (mg/dL) (70-110) mg/dL 11/07/24 11/07/24 11/07/24 Range/Units 07:11 07:11 08:06 WBC (3.8-10.6) k/uL Neutrophils # (1.3-7.7) k/uL APTT 47.0 H (22.0-30.0) sec Sodium 136 L (137-145) mmol/L BUN 29 H (7-17) mg/dL Creatinine 1.05 H (0.52-1.04) mg/dL POC Glucose (mg/dL) 227 H (70-110) mg/dL
--- NOTE | 2024-11-07 17:56 | CA ---
Transthoracic Echo Report Name: Debby Meek Age: 83 Gender: F : 1940 Exam Date: 11/07/2024 10:14 Exam Location: [facility] Ht (in): 60 Wt (lb): 85 Ordering Physician: Keisha May Attending/Referring Phys: [id number], Lalo [employer] Amna Jimenez RDCS Procedure CPT: Indications: LVF Cardiac Hx: Technical Quality: Good Contrast 1: Total Dose (mL): Contrast 2: Total Dose (mL): MEASUREMENTS (Male / Female) Normal Values 2D ECHO LV Diastolic Diameter PLAX 4.7 cm 4.2 - 5.9 / 3.9 - 5.3 cm LV Systolic Diameter PLAX 4.2 cm IVS Diastolic Thickness 1.0 cm 0.6 - 1.0 / 0.6 - 0.9 cm LVPW Diastolic Thickness 1.0 cm 0.6 - 1.0 / 0.6 - 0.9 cm LV Relative Wall Thickness 0.4 RV Internal Dim ED PLAX 1.1 cm LA Systolic Diameter LX 4.2 cm 3.0 - 4.0 / 2.7 - 3.8 cm LV Diastolic Volume MOD BP 70.3 cm??? 67 - 155 / 56 - 104 cm??? LV Systolic Volume MOD BP 49.8 cm??? - 58 / 19 - 49 cm??? LV Ejection Fraction MOD BP 29.2 % >= 55 % LV Cardiac Index MOD BP 1179.9 cm???/min???m??? LV Diastolic Volume MOD 4C 76.6 cm??? LV Systolic Volume MOD 4C 54.5 cm??? LV Ejection Fraction MOD 4C 28.9 % LV Cardiac Index MOD 4C 1272.6 cm???/min???m??? LV Diastolic Length 4C 7.7 cm LV Systolic Length 4C 7.4 cm LV Diastolic Volume MOD 2C 61.2 cm??? LV Systolic Volume MOD 2C 45.7 cm??? LV Ejection Fraction MOD 2C 25.3 % LV Cardiac Index MOD 2C 890.2 cm???/min???m??? LV Diastolic Length 2C 7.3 cm LV Systolic Length 2C 7.4 cm LA Volume 51.7 cm??? 18 - 58 / 22 - 52 cm??? LA Volume Index 40.7 cm???/m??? 16 - 28 cm???/m??? M-MODE Aortic Root Diameter MM 2.4 cm LA Systolic Diameter MM 3.9 cm LA Ao Ratio MM 1.6 AV Cusp Separation MM 1.5 cm DOPPLER AV Peak Velocity 130.1 cm/s AV Peak Gradient 6.8 mmHg MV Area PHT 3.3 cm??? Mitral E Point Velocity 74.5 cm/s Mitral A Point Velocity 127.3 cm/s Mitral E to A Ratio 0.6 MV Deceleration Time 228.4 ms TR Peak Velocity 153.1 cm/s TR Peak Gradient 9.4 mmHg Right Ventricular Systolic Press 14.4 mmHg FINDINGS Left Ventricle Left ventricular ejection fraction is estimated at 20-25%. Global hypokinesis, worse in the apex.left ventricular cavity size normal. Right Ventricle Normal right ventricular size. Right ventricular systolic pressure within normal limits. Right Atrium Mild right atrial dilatation. Left Atrium Mildly increased left atrial diameter. Severely increased left atrial volume. Mitral Valve Mitral valve thickened. [id number] mitral regurgitation. No mitral stenosis. Mitral annular calcification. Aortic Valve Trileaflet aortic valve. No aortic valve stenosis or regurgitation. Aortic valve sclerosis. Tricuspid Valve Structurally normal tricuspid valve. Mild tricuspid regurgitation. No tricuspid stenosis. Pulmonic Valve Structurally normal pulmonic valve. Mild pulmonic regurgitation. No pulmonic stenosis. Pericardium Left pleural effusion. Aorta Normal size aortic root and proximal ascending aorta. CONCLUSIONS 1. Severely impaired left ventricular systolic function 2. Mild to moderate mitral regurgitation 3. Mild tricuspid regurgitation Previewed by: Dr. Ninfa Valenzuela MD (Electronically Signed) Final Date: 07 November 2024 17:55
[2024-11-07] MEDS: FUROSEMIDE 10 MG/ML 4 ML VIAL IV SCH (19:44)
[2024-11-08 08:39] LABS: African American GFR (CKD) 63 (>60 ml/min/1.73 sqM); Anion Gap 7 mmol/L; Blood Urea Nitrogen 31 mg/dL (7-17); Calcium 8.2 mg/dL (8.4-10.2); Carbon Dioxide 28 mmol/L (22-30); Chloride 100 mmol/L (98-107); Glucose 84 mg/dL (74-99); Magnesium 1.6 mg/dL (1.6-2.3); Non-African American GFR(CKD) 55 (>60 ml/min/1.73 sqM); Potassium 3.3 mmol/L (3.5-5.1); Sodium 135 mmol/L (137-145)
--- NOTE | 2024-11-08 08:57 | P.PN ---
Subjective Progress Note Date: 11/08/24 History of present illness: This is an 83-year-old female patient of Dr. Parr with past medical history of hypertension, hyperlipidemia, left bundle branch block, cardiomyopathy with previous EF of 35 to 40%, remote history of tobacco use and dependence, PAD. We have been asked to evaluate the patient for acute pulmonary edema. Patient presented to the hospital due to shortness of breath cough and anxiety. Patient also had some nausea and weakness. Blood pressure 135/68, heart rate 108, pulse ox 93% on 2 L nasal cannula. Patient is seen today in the emergency center waiting for bed on the cardiac stepdown unit. Patient is status post 1 dose of IV Lasix 20 mg and started on Nitropaste, status post 1.5 L IV fluid. Patient has been started on IV Lasix 20 mg daily -EKG: Sinus rhythm with left bundle branch block, LAD -Chest x-ray: Bibasilar airspace opacities with mild cardiomegaly and pulmonary vascular congestion. -Laboratory studies: CBC, INR unremarkable. Sodium 134, potassium 3.7, BUN 31 creatinine 0.94. Troponin 0.013 and 0.13. proBNP 16,000. Influenza, RSV COVID-19 not detected. -Home cardiac medications: Aspirin 81 mg daily, Pletal 50 mg daily, lisinopril 5 mg daily, metoprolol tartrate 25 mg twice daily, Xarelto 2.5 mg twice daily, simvastatin 40 mg at bedtime. 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 Sluggish flow of the distal aorta with some 30% narrowing. -Echocardiogram performed in the office on 03/05/2022 revealed EF of 40%, moderate concentric left ventricular hypertrophy. Moderate mitral regurgitation. Mild tricuspid regurgitation, PASP 23 mmHg. Mild pulmonic regurgitation. -Lexiscan Cardiolite stress test performed in the office on 05/12/2021 revealed nondiagnostic Lexiscan stress test because of baseline left bundle branch block. Small fixed defect involving the anterior apical and septal area most probably secondary to left bundle branch block. No definite reversible ischemia. Gated images show atypical motion of the septum with EF 50%. Echo from this admission shows an EF of 20 to 25%, global hypokinesia, apical hypokinesia, moderate MR, mild TR. 11/07 Patient was scheduled for cardiac catheterization today with Dr. Parr. A team called this morning for fluid overload patient was given additional dose of IV Lasix 40 mg and was placed on BiPAP. Cardiac catheterization will be postponed until Sunday. Blood pressure 90/59, heart rate 74, pulse ox 100% on BiPAP at FiO2 80%. Repeat blood work reveals WBC 10.7, hemoglobin 12.9. Sodium 136, potassium 4.7, BUN 29 creatinine 1.05. Repeat chest x-ray Reveals diffuse increased lung markings. Pulmonary edema likely within the differential. Other etiologies not excluded. Echocardiogram is pending. 11/08/2024 BP 820/67, heart rate 74, BUN 31, creatinine 0.9, yesterday creatinine was 1.05 Still appears mildly volume overloaded. But improved from yesterday. Still mildly short of breath. Physical examination: Gen: This is an 83-year-old female in no acute distress VS: reviewed HEENT: Head is atraumatic, normocephalic. Pupils equal, round. Sclerae is anicteric. NECK: Supple. No JVD. LUNGS: Crackles bilateral bases. No intercostal retractions. HEART: Regular rate and rhythm. No murmur. ABDOMEN: Soft No tenderness. EXTREMITIES: No pedal edema. No calf tenderness. NEUROLOGICAL: Patient is awake, alert. Assessment: NSTEMI Acute on chronic heart failure New worsening cardiomyopathy with current EF of 20 to 25% Hypertension Hyperlipidemia Left bundle branch block PAD Remote history of tobacco use and dependence Moderate protein calorie malnutrition with BMI of 16 Plan: Continue current cardiac medications Hold Xarelto Continue heparin drip Cardiac catheterization will most likely be rescheduled for Sunday with Dr. Parr Continue Lasix 40 mg IV twice daily today. From tomorrow transition to p.o. diuretics Bumex 1 mg BID Continue metoprolol 25 mg twice daily Discontinue lisinopril, start Entresto 24/26 mg twice daily Monitor MICAELA and daily weights, electrolytes and renal function Objective - Vital Signs Vital signs: Vital Signs Temp 97.6 F 11/08/24 04:20 Pulse 75 11/08/24 04:20 Resp 21 11/08/24 04:20 BP 127/63 11/08/24 04:20 Pulse Ox 97 11/08/24 04:20 FiO2 45 11/07/24 15:25 Intake & Output 11/07/24 11/08/24 11/08/24 18:59 06:59 18:59 Intake Total 300 304.095 129.001 Output Total 1650 700 Balance -1350 -395.905 129.001 Weight 38.6 kg 38.7 kg Intake: IV 20 Invasive Line 1 20 Intake, IV Titration 164.095 11.001 Amount Heparin Sod,Pork in 0.45% 164.095 11.001 NaCl 25,000 unit In 0.45 % NaCl 1 250ml.bag @ 12 UNITS/KG/HR 4.627 mls/hr IV .Q24H [facility] Rx#: [id number] Oral 300 120 118 Output: Urine 1650 700 Other: Voiding Method Indwelling Catheter Indwelling Catheter # Voids 1 # Bowel Movements 1 - Labs CBC & Chem 7: 11/07/24 07:11 11/08/24 07:02 Labs: Abnormal Lab Results - Last 24 Hours (Table) 11/08/24 11/08/24 Range/Units 07:02 07:02 APTT 33.1 H (22.0-30.0) sec Sodium 135 L (137-145) mmol/L Potassium 3.3 L (3.5-5.1) mmol/L BUN 31 H (7-17) mg/dL Calcium 8.2 L (8.4-10.2) mg/dL
[2024-11-08] MEDS: SPIRONOLACTONE 25 MG TAB PO SCH (09:19)
--- NOTE | 2024-11-08 10:31 | P.PN ---
Subjective Progress Note Date: 11/08/24 83 year old F with PMH of HTN, Depression, PAD presents to the ED for shortness of breath worse with exertion over the past days. She reports lower extremity swelling that is has had for "ages". She reports no orthopnea. She denies any headache, nausea or vomiting, fever or chills, cough, chest pain, palpitations, changes in urination or bowel habits. No changes in appetite or weight. Denies numbness/weakness/tingling of the extremities. In the ED she underwent extensive evaluation. BP 178/108, HR 100, RR 20, T 97.6, 94% on 4L NC. CBC, Coag panel, CMP significant for Na 134, bicarb 18, BUN 31, glu 146. Trop 0.013, 0.13, 0.257. BNP 69100. COVID RSV Flu neg. CXR showed pulmonary vascular congestion. EKG sinus rhythm with LBBB. Patient is admitted for further workup and management. 11/07 Patient was seen and examined. More short of breath this morning, A-team was called. She is currently on BiPAP. Initially Cardiology was planning on doing a cath today which was cancelled due to change in respiratory status. CXR shows increased pulmonary edema compared to yesterday. Lasix is increased to 40 mg IV BID. Maintained on heparin drip. Patient noted to be retaining ~ 700 cc of urine, Delvalle catheter ordered. CBC, Coag panel, CMP significant for WBC 10.7, APTT 47, BUN 29, Cr 1.05. Mag 1.7. 11/08 Patient was seen and examined. Reports improvement in breathing. Currently on 4L NC saturating 99%. Echo shows EF 20-25%. Negative 1745 cc fluid balance over the past 24H. APTT 33.1. BMP shows Na 135, K 3.3, BUN 31, Ca 8.2. Mag 1.6. Cardiology recommends DC Lisinopril and start Entresto, continue Lasix IV, cardiac cath on Sunday. General: non toxic, no distress, appears at stated age Derm: warm, dry Head: atraumatic, normocephalic, symmetric Eyes: EOMI, no lid lag, anicteric sclera Mouth: no lip lesion, mucus membranes moist Cardiovascular: S1S2 tachy, no murmur Lungs: Decreased BS bilateral, no rhonchi, no rales , no accessory muscle use Ext: no gross muscle atrophy, no edema, no contractures Neuro: no focal neuro deficits Psych: Alert, oriented, appropriate affect Based on my assessment of this patient, this patient meets a high complexity level of care. Acute CHF exacerbation: CXR findings + elevated BNP. Lasix to 40 mg IV BID. Metoprolol 25 mg PO BID. Entresto 24-26 mg PO QD. [place] 12.5 mg PO QD. Echo shows EF 20-25%. Strict intake and outtake. Daily weights. Monitor renal function and electrolytes. Cardiology on board. NSTEMI: Heparin drip. Monitor APTT. ASA 81 mg PO QD. Lipitor 40 mg PO QHS. Metoprolol 25 mg PO BID. Nitro ointment. Cardiac cath once respiratory status more stable. Cardiology on board. HypoK: KCl 40 meq PO x 1. HypoMag: Mag sulfate 2g IV x 1. NIXON: Due to forced diuresis. Monitor renal function and electrolytes while on Lasix. PAD: Holding cilostazol and Xarelto. Management as above. Depression: Lexapro 10 mg PO QD. HTN: Lisinopril 5 mg PO QD. Metoprolol 25 mg PO BID. CODE STATUS: FULL CODE DVT Prophylaxis: Heparin drip. GI Prophylaxis: Designated medical POA if patient is not able to make medical decisions for themselves: I have reviewed the following automobile sales consultant notes: Cardiology note I have reviewed the results of the following tests: Mag, Coag panel, BMP, Echo. I have ordered the following tests: BMP, Mag, Coag panel in the AM. I have discussed the care of this patient with the following independent historian: I have independently interpreted the following test below: I have discussed the management of this patient with the following physician: Objective - Vital Signs Vital signs: Vital Signs Temp 97.8 F 11/08/24 08:05 Pulse 95 11/08/24 08:05 Resp 19 11/08/24 08:05 BP 140/66 11/08/24 08:05 Pulse Ox 99 11/08/24 09:24 FiO2 45 11/07/24 15:25 Intake & Output 11/07/24 11/08/24 11/08/24 18:59 06:59 18:59 Intake Total 300 304.095 139.001 Output Total 1650 700 Balance -1350 -395.905 139.001 Weight 38.6 kg 38.7 kg Intake: IV 20 10 Invasive Line 1 20 10 Intake, IV Titration 164.095 11.001 Amount Heparin Sod,Pork in 0.45% 164.095 11.001 NaCl 25,000 unit In 0.45 % NaCl 1 250ml.bag @ 12 UNITS/KG/HR 4.627 mls/hr IV .Q24H [facility] Rx#: [id number] Oral 300 120 118 Output: Urine 1650 700 Other: Voiding Method Indwelling Catheter Indwelling Catheter Indwelling Catheter # Voids 1 # Bowel Movements 1 - Labs CBC & Chem 7: 11/07/24 07:11 11/08/24 07:02 Labs: Abnormal Lab Results - Last 24 Hours (Table) 11/08/24 11/08/24 Range/Units 07:02 07:02 APTT 33.1 H (22.0-30.0) sec Sodium 135 L (137-145) mmol/L Potassium 3.3 L (3.5-5.1) mmol/L BUN 31 H (7-17) mg/dL Calcium 8.2 L (8.4-10.2) mg/dL
[2024-11-08] MEDS: MAGNESIUM SULFATE-D5W PMX 1 GM in DEXTROSE/WATER 1 100ML.BAG IVPB SCH (11:13)
[2024-11-08] MEDS: POTASSIUM CHLORIDE ER 20 MEQ TAB.ER PO STA (11:13)
[2024-11-09 07:09] LABS: African American GFR (CKD) 61 (>60 ml/min/1.73 sqM); Anion Gap 4 mmol/L; Blood Urea Nitrogen 34 mg/dL (7-17); Calcium 8.6 mg/dL (8.4-10.2); Carbon Dioxide 32 mmol/L (22-30); Chloride 100 mmol/L (98-107); Glucose 89 mg/dL (74-99); Magnesium 2.1 mg/dL (1.6-2.3); Non-African American GFR(CKD) 53 (>60 ml/min/1.73 sqM); Potassium 3.9 mmol/L (3.5-5.1); Sodium 136 mmol/L (137-145)
--- NOTE | 2024-11-09 11:20 | P.PN ---
Subjective Progress Note Date: 11/09/24 83 year old F with PMH of HTN, Depression, PAD presents to the ED for shortness of breath worse with exertion over the past days. She reports lower extremity swelling that is has had for "ages". She reports no orthopnea. She denies any headache, nausea or vomiting, fever or chills, cough, chest pain, palpitations, changes in urination or bowel habits. No changes in appetite or weight. Denies numbness/weakness/tingling of the extremities. In the ED she underwent extensive evaluation. BP 178/108, HR 100, RR 20, T 97.6, 94% on 4L NC. CBC, Coag panel, CMP significant for Na 134, bicarb 18, BUN 31, glu 146. Trop 0.013, 0.13, 0.257. BNP 07895. COVID RSV Flu neg. CXR showed pulmonary vascular congestion. EKG sinus rhythm with LBBB. Patient is admitted for further workup and management. 11/07 Patient was seen and examined. More short of breath this morning, A-team was called. She is currently on BiPAP. Initially Cardiology was planning on doing a cath today which was cancelled due to change in respiratory status. CXR shows increased pulmonary edema compared to yesterday. Lasix is increased to 40 mg IV BID. Maintained on heparin drip. Patient noted to be retaining ~ 700 cc of urine, Delvalle catheter ordered. CBC, Coag panel, CMP significant for WBC 10.7, APTT 47, BUN 29, Cr 1.05. Mag 1.7. 11/08 Patient was seen and examined. Reports improvement in breathing. Currently on 4L NC saturating 99%. Echo shows EF 20-25%. APTT 33.1. BMP shows Na 135, K 3.3, BUN 31, Ca 8.2. Mag 1.6. Cardiology recommends DC Lisinopril and start Entresto, continue Lasix IV, cardiac cath on Sunday. 11/09 Patient was seen and examined. Reports improvement in breathing. Currently on 2L NC saturating 99%. Maintained on Lasix 40 mg IV BID, negative 1745 cc fluid balance over the past 24H. Maintained on heparin drip, APTT 49.2. BMP shows Na 136, bicarb 32, BUN 34. Mag 2.1. Cardiology recommends cardiac cath on Sunday. General: non toxic, no distress, appears at stated age Derm: warm, dry Head: atraumatic, normocephalic, symmetric Eyes: EOMI, no lid lag, anicteric sclera Mouth: no lip lesion, mucus membranes moist Cardiovascular: S1S2 reg, no murmur Lungs: Decreased BS bilateral, no rhonchi, no rales , no accessory muscle use Ext: no gross muscle atrophy, no edema, no contractures Neuro: no focal neuro deficits Psych: Alert, oriented, appropriate affect Based on my assessment of this patient, this patient meets a high complexity level of care. Acute CHF exacerbation: CXR findings + elevated BNP. Decrease Lasix from 40 mg IV BID to QD. Metoprolol 25 mg PO BID. Entresto 24-26 mg PO QD. [place]on 12.5 mg PO QD. Echo shows EF 20-25%. Strict intake and outtake. Daily weights. Monitor renal function and electrolytes. Cardiology on board. NSTEMI: Heparin drip. Monitor APTT. ASA 81 mg PO QD. Lipitor 40 mg PO QHS. Metoprolol 25 mg PO BID. Cardiac cath likely on Sunday. Cardiology on board. Prerenal azotemia with metabolic alkalosis: Due to forced diuresis. Monitor renal function and electrolytes while on Lasix. PAD: Holding cilostazol and Xarelto. Management as above. Depression: Lexapro 10 mg PO QD. HTN: Metoprolo, Entresto and Aldactone as above. Resolved: HypoK, HypoMag CODE STATUS: FULL CODE DVT Prophylaxis: Heparin drip. GI Prophylaxis: Designated medical POA if patient is not able to make medical decisions for themselves: Daughter I have reviewed the following consultant teacher notes: Cardiology note I have reviewed the results of the following tests: BMP, Coag panel, Mag. I have ordered the following tests: BMP, Mag, Coag panel, CXR in the AM. I have discussed the care of this patient with the following independent historian: I have independently interpreted the following test below: I have discussed the management of this patient with the following physician: Objective - Vital Signs Vital signs: Vital Signs Temp 97.7 F 11/09/24 03:10 Pulse 63 11/09/24 03:10 Resp 17 11/09/24 03:10 BP 107/49 11/09/24 03:10 Pulse Ox 99 11/09/24 03:10 FiO2 45 11/07/24 15:25 Intake & Output 11/08/24 11/09/24 11/09/24 18:59 06:59 18:59 Intake Total 437.745 83.102 Output Total 900 600 Balance -462.255 -516.898 Weight 38.8 kg Intake: IV 20 20 Invasive Line 1 20 20 Intake, IV Titration 63.745 63.102 Amount Heparin Sod,Pork in 0.45% 63.745 63.102 NaCl 25,000 unit In 0.45 % NaCl 1 250ml.bag @ 12 UNITS/KG/HR 4.627 mls/hr IV .Q24H [facility] Rx#: [id number] Oral 354 Output: Urine 900 600 Other: Voiding Method Indwelling Catheter Indwelling Catheter # Bowel Movements 2 - Labs CBC & Chem 7: 11/07/24 07:11 11/09/24 06:33 Labs: Abnormal Lab Results - Last 24 Hours (Table) 11/08/24 11/08/24 11/08/24 Range/Units 07:02 14:16 23:10 APTT 32.8 H 37.4 H (22.0-30.0) sec Sodium 135 L (137-145) mmol/L Potassium 3.3 L (3.5-5.1) mmol/L Carbon Dioxide (22-30) mmol/L BUN 31 H (7-17) mg/dL Calcium 8.2 L (8.4-10.2) mg/dL 11/09/24 11/09/24 Range/Units 06:33 06:33 APTT 49.2 H (22.0-30.0) sec Sodium 136 L (137-145) mmol/L Potassium (3.5-5.1) mmol/L Carbon Dioxide 32 H (22-30) mmol/L BUN 34 H (7-17) mg/dL Calcium (8.4-10.2) mg/dL
[2024-11-09] MEDS ORDERED: NITROGLYCERIN SL TABS 0.4 MG TAB SUBLINGUAL PRN (14:29)
[2024-11-09] MEDS: SACUBITRIL/VALSARTAN 24 MG-26 MG TABLET PO SCH (20:25)
[2024-11-09] MEDS: ALPRAZolam 0.25 MG TAB PO PRN (22:00)
--- NOTE | 2024-11-09 23:12 | P.PN ---
Subjective Progress Note Date: 11/09/24 History of present illness: This is an 83-year-old female patient of Dr. Parr with past medical history of hypertension, hyperlipidemia, left bundle branch block, cardiomyopathy with previous EF of 35 to 40%, remote history of tobacco use and dependence, PAD. We have been asked to evaluate the patient for acute pulmonary edema. Patient presented to the hospital due to shortness of breath cough and anxiety. Patient also had some nausea and weakness. Blood pressure 135/68, heart rate 108, pulse ox 93% on 2 L nasal cannula. Patient is seen today in the emergency center waiting for bed on the cardiac stepdown unit. Patient is status post 1 dose of IV Lasix 20 mg and started on Nitropaste, status post 1.5 L IV fluid. Patient has been started on IV Lasix 20 mg daily -EKG: Sinus rhythm with left bundle branch block, LAD -Chest x-ray: Bibasilar airspace opacities with mild cardiomegaly and pulmonary vascular congestion. -Laboratory studies: CBC, INR unremarkable. Sodium 134, potassium 3.7, BUN 31 creatinine 0.94. Troponin 0.013 and 0.13. proBNP 16,000. Influenza, RSV COVID-19 not detected. -Home cardiac medications: Aspirin 81 mg daily, Pletal 50 mg daily, lisinopril 5 mg daily, metoprolol tartrate 25 mg twice daily, Xarelto 2.5 mg twice daily, simvastatin 40 mg at bedtime. 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 Sluggish flow of the distal aorta with some 30% narrowing. -Echocardiogram performed in the office on 03/05/2022 revealed EF of 40%, moderate concentric left ventricular hypertrophy. Moderate mitral regurgitation. Mild tricuspid regurgitation, PASP 23 mmHg. Mild pulmonic regurgitation. -Lexiscan Cardiolite stress test performed in the office on 05/12/2021 revealed nondiagnostic Lexiscan stress test because of baseline left bundle branch block. Small fixed defect involving the anterior apical and septal area most probably secondary to left bundle branch block. No definite reversible ischemia. Gated images show atypical motion of the septum with EF 50%. Echo from this admission shows an EF of 20 to 25%, global hypokinesia, apical hypokinesia, moderate MR, mild TR. 11/07 Patient was scheduled for cardiac catheterization today with Dr. Parr. A team called this morning for fluid overload patient was given additional dose of IV Lasix 40 mg and was placed on BiPAP. Cardiac catheterization will be postponed until Sunday. Blood pressure 90/59, heart rate 74, pulse ox 100% on BiPAP at FiO2 80%. Repeat blood work reveals WBC 10.7, hemoglobin 12.9. Sodium 136, potassium 4.7, BUN 29 creatinine 1.05. Repeat chest x-ray Reveals diffuse increased lung markings. Pulmonary edema likely within the differential. Other etiologies not excluded. Echocardiogram is pending. 11/08/2024 BP 120/67, heart rate 74, BUN 31, creatinine 0.9, yesterday creatinine was 1.05 Still appears mildly volume overloaded. But improved from yesterday. Still mildly short of breath. 11/09/2024 Reports feeling better, improved breathing, denies any active chest pressure. Appears less volume overloaded as compared to yesterday. Physical examination: Gen: This is an 83-year-old female in no acute distress VS: reviewed HEENT: Head is atraumatic, normocephalic. Pupils equal, round. Sclerae is anicteric. NECK: Supple. No JVD. LUNGS: Crackles bilateral bases. No intercostal retractions. HEART: Regular rate and rhythm. No murmur. ABDOMEN: Soft No tenderness. EXTREMITIES: No pedal edema. No calf tenderness. NEUROLOGICAL: Patient is awake, alert. Assessment: NSTEMI Acute on chronic heart failure New worsening cardiomyopathy with current EF of 20 to 25% Hypertension Hyperlipidemia Left bundle branch block PAD Remote history of tobacco use and dependence Moderate protein calorie malnutrition with BMI of 16 Plan: Continue current cardiac medications Hold Xarelto Continue heparin drip Cardiac catheterization will most likely be rescheduled for Sunday with Dr. Parr Previously on Lasix 40 mg IV twice daily. Currently transition to once a day. Agree with this. Consider transitioning to p.o. Bumex after the heart cath Continue metoprolol 25 mg twice daily Discontinue lisinopril, start Entresto 24/26 mg twice daily Monitor MICAELA and daily weights, electrolytes and renal function Objective - Vital Signs Vital signs: Vital Signs Temp 98 F 11/09/24 20:10 Pulse 85 01/19/25 20:10 Resp 19 11/09/24 20:10 BP 135/77 11/09/24 20:10 Pulse Ox 99 11/09/24 20:10 FiO2 45 11/07/24 15:25 Intake & Output 11/09/24 11/09/24 11/10/24 06:59 18:59 06:59 Intake Total 83.102 143.153 10 Output Total 600 Balance -516.898 143.153 10 Weight 38.8 kg Intake: IV 20 20 10 Invasive Line 1 20 20 10 Intake, IV Titration 63.102 123.153 Amount Heparin Sod,Pork in 0.45% 63.102 123.153 NaCl 25,000 unit In 0.45 % NaCl 1 250ml.bag @ 12 UNITS/KG/HR 4.627 mls/hr IV .Q24H [facility] Rx#: [id number] Output: Urine 600 Other: Voiding Method Indwelling Catheter Indwelling Catheter Indwelling Catheter # Voids 1 # Bowel Movements 1 - Labs CBC & Chem 7: 11/07/24 07:11 11/09/24 06:33 Labs: Abnormal Lab Results - Last 24 Hours (Table) 11/08/24 11/09/24 11/09/24 Range/Units 23:10 06:33 06:33 APTT 37.4 H 49.2 H (22.0-30.0) sec Sodium 136 L (137-145) mmol/L Carbon Dioxide 32 H (22-30) mmol/L BUN 34 H (7-17) mg/dL
[2024-11-10] MEDS: SODIUM CHLORIDE 0.9% 1,000 ML in EMPTY BAG 1 BAG IV SCH (05:20)
[2024-11-10] MEDS: FUROSEMIDE 10 MG/ML 4 ML VIAL IV SCH (05:52)
[2024-11-10] MEDS: ASPIRIN 325 MG TAB PO ONE (05:52)
[2024-11-10] MEDS: ATORVASTATIN 80 MG TAB PO ONE (05:52)
--- NOTE | 2024-11-10 07:43 | XR ---
EXAMINATION TYPE: XR chest 1V portable DATE OF EXAM: 11/10/2024 CLINICAL HISTORY: Difficulty breathing progress study. CHF. TECHNIQUE: Single AP portable upright view of the chest is obtained. COMPARISON: Chest x-ray from 3 days earlier FINDINGS: Stable mild cardiomegaly. Improved bilateral central opacities. Degenerative change right glenohumeral joint redemonstrated. IMPRESSION: Improved bilateral central opacities consistent with improved edema consistent with impro ving CHF exacerbation. [facility], , 11/10/2024 7:41 AM
[2024-11-10 08:09] LABS: African American GFR (CKD) 71 (>60 ml/min/1.73 sqM); Anion Gap 6 mmol/L; Blood Urea Nitrogen 31 mg/dL (7-17); Calcium 8.9 mg/dL (8.4-10.2); Carbon Dioxide 30 mmol/L (22-30); Chloride 97 mmol/L (98-107); Glucose 92 mg/dL (74-99); Magnesium 1.8 mg/dL (1.6-2.3); Non-African American GFR(CKD) 61 (>60 ml/min/1.73 sqM); Potassium 3.8 mmol/L (3.5-5.1); Sodium 133 mmol/L (137-145)
[2024-11-10] MEDS: VERAPAMIL SYRINGE (5 MG/10 ML) INTRAARTER ONE ×2 (11:20→12:20)
--- NOTE | 2024-11-10 11:26 | CDI ---
Documentation Clarification Form Date: 11/10/2024 11:09:50 AM From: Yashira Torres RN CCDS Phone: [phone] Admit Date: 11/06/2024 07:54:00 AM Patient Name: Debby Meek Visit Number: [id number] Discharge Date: ATTENTION: The Clinical Documentation Specialists (CDI) and [facility] Coding Staff appreciate your assistance in clarifying documentation. Please respond to the clarification below the line at the bottom and electronically sign. The CDI & [facility] Coding staff will review the response and follow-up if needed. Please note: Queries are made part of the Legal Health Record. If you have any questions, please contact the author of this message via ITS. Doctor: Eber Vo Your patient has the documented diagnosis of unspecified CHF 11/09, Cardiology note. Additional information regarding the type of CHF is requested. History/Risk Factors: 83 year old male presents to the ED for shortness of breath worse with exertion over the past days. Patient reports lower extremity swelling that she has had for ages. Medical History: HTN, Depression and PAD. 11/06 HP Clinical Indicators: VS/Pulse OX, 11/06: B/P 178/108, HR 100, Temp 97.6F, RR 20, SpO2 94% 4L nc BNP, 11/06: [id number] Echocardiogram Results: 11/07: EF 20-25% Severely impaired left ventricular systolic function. Mild to moderate mitral regurgitation. Mild tricuspid regurgitation. Chest X Ray: Treatment: 11/06: Lasix 20mg IV x 1; 11/07 Lasix 40mg IV x 1: 11/07 Lasix 20mg IV x 1; 11/07 11/09 Lasix IV Daily; 11/10 Lasix 40mg; 11/06 Lopressor 25mg PO BID; 11/08 Aldactone 12.5mg PO Daily. In your professional opinion, can you please clarify the type of CHF if known? [ X] Acute on Chronic Systolic Heart Failure (reduced EF) [ ] Other, please specify [ ] Unable to determine (Template Last Revised: November 2020) MTDD
[2024-11-10] MEDS: LIDOCAINE 1% INJ 10MG/ML (20 ML MDV) SQ ONE (11:35)
[2024-11-10] MEDS: MIDAZOLAM 2 MG/2 ML VIAL IVP ONE (11:35)
[2024-11-10] MEDS: fentaNYL (PF) 50 MCG/1 ML VIAL IVP ONE (11:35)
[2024-11-10] MEDS: SODIUM CHLORIDE 0.9% 1,000 ML IV ONE (12:00)
[2024-11-10] MEDS: HEPARIN SODIUM,PORCINE 10,000 UNIT in SODIUM CHLORIDE 0.9% 1,000 ML IRRIGATION PRN (12:00)
[2024-11-10] MEDS: HEPARIN SODIUM,PORCINE (1 ML) 2,500 UNIT in SODIUM CHLORIDE 0.9% 250 ML IRRIGATION PRN (12:04)
[2024-11-10] MEDS: HEPARIN SODIUM 1,000 UN/ML (10ML VL) IVP ONE (12:21)
[2024-11-10] MEDS: IOPAMIDOL-370 100ML BTL INJ ONE ×2 (12:32→12:33)
--- NOTE | 2024-11-10 14:47 | P.PN ---
Subjective Progress Note Date: 11/10/24 83 year old F with PMH of HTN, Depression, PAD presents to the ED for shortness of breath worse with exertion over the past days. She reports lower extremity swelling that is has had for "ages". She reports no orthopnea. She denies any headache, nausea or vomiting, fever or chills, cough, chest pain, palpitations, changes in urination or bowel habits. No changes in appetite or weight. Denies numbness/weakness/tingling of the extremities. In the ED she underwent extensive evaluation. BP 178/108, HR 100, RR 20, T 97.6, 94% on 4L NC. CBC, Coag panel, CMP significant for Na 134, bicarb 18, BUN 31, glu 146. Trop 0.013, 0.13, 0.257. BNP 78869. COVID RSV Flu neg. CXR showed pulmonary vascular congestion. EKG sinus rhythm with LBBB. Patient is admitted for further workup and management. Patient noted to be retaining ~ 700 cc of urine, Delvalle catheter inserted. She was started on Lasix IV and heparin infusion. A-team was called on 11/07 for worsening respiratory status and patient was placed on BiPAP. She diuresed well with Lasix and respiratory status improved. Cardiology consulted, repeat Echo showed EF 20-25%, plans for cardiac cath on 11/10. 11/10 Patient was seen and examined. Reports improvement in breathing. Currently on RA saturating 96%. Maintained on Lasix 40 mg IV QD, negative 979 cc fluid balance over the past 24H. CXR shows improvement in pulmonary edema. Maintained on heparin drip, APTT 48.6. BMP shows Na 133, Cl 96, BUN 31. Mag 1.8. Plans for cardiac cath today. General: non toxic, no distress, appears at stated age Derm: warm, dry Head: atraumatic, normocephalic, symmetric Eyes: EOMI, no lid lag, anicteric sclera Mouth: no lip lesion, mucus membranes moist Cardiovascular: S1S2 reg, no murmur Lungs: Decreased BS bilateral, no rhonchi, no rales , no accessory muscle use Ext: no gross muscle atrophy, no edema, no contractures Neuro: no focal neuro deficits Psych: Alert, oriented, appropriate affect Based on my assessment of this patient, this patient meets a high complexity level of care. Acute CHF exacerbation: CXR findings + elevated BNP. Lasix from 40 mg IV QD. Metoprolol 25 mg PO BID. Entresto 24-26 mg PO QD. Aldactone 12.5 mg PO QD. Echo shows EF 20-25%. Strict intake and outtake. Daily weights. Monitor renal function and electrolytes. Cardiology on board. NSTEMI: Heparin drip. Monitor APTT. ASA 81 mg PO QD. Lipitor 40 mg PO QHS. Metoprolol 25 mg PO BID. Cardiac cath likely today. Cardiology on board. Prerenal azotemia with metabolic alkalosis: Due to forced diuresis. Monitor renal function and electrolytes while on Lasix. PAD: Holding cilostazol and Xarelto. Management as above. Depression: Lexapro 10 mg PO QD. HTN: Metoprolo, Entresto and Aldactone as above. Resolved: HypoK, HypoMag CODE STATUS: FULL CODE DVT Prophylaxis: Heparin drip. GI Prophylaxis: Designated medical POA if patient is not able to make medical decisions for themselves: Daughter I have reviewed the following brand sales consultant notes: Cardiology note I have reviewed the results of the following tests: BMP, Coag panel, Mag. I have ordered the following tests: BMP, Mag, Coag panel in the AM. I have discussed the care of this patient with the following independent historian: I have independently interpreted the following test below: CXR I have discussed the management of this patient with the following physician: Tracie JONES Objective - Vital Signs Vital signs: Vital Signs Temp 97.6 F 11/10/24 08:18 Pulse 63 11/10/24 08:18 Resp 16 11/10/24 08:18 BP 117/66 11/10/24 08:18 Pulse Ox 96 11/10/24 08:18 FiO2 45 11/07/24 15:25 Intake & Output 11/09/24 11/10/24 11/10/24 18:59 06:59 18:59 Intake Total 143.153 30 Output Total 540 1100 Balance 143.153 -510 -1100 Weight 38.7 kg Intake: IV 20 30 Invasive Line 1 20 20 Invasive Line 2 10 Intake, IV Titration 123.153 Amount Heparin Sod,Pork in 0.45% 123.153 NaCl 25,000 unit In 0.45 % NaCl 1 250ml.bag @ 12 UNITS/KG/HR 4.627 mls/hr IV .Q24H [facility] Rx#: [id number] Output: Urine 540 1100 Other: Voiding Method Indwelling Catheter Indwelling Catheter Indwelling Catheter # Voids 1 # Bowel Movements 1 - Labs CBC & Chem 7: 11/07/24 07:11 11/10/24 06:15 Labs: Abnormal Lab Results - Last 24 Hours (Table) 11/10/24 11/10/24 Range/Units 06:15 06:15 APTT 48.6 H (22.0-30.0) sec Sodium 133 L (137-145) mmol/L Chloride 97 L (98-107) mmol/L BUN 31 H (7-17) mg/dL
--- NOTE | 2024-11-10 17:35 | P.CARDCATH ---
Description of Procedure: PROCEDURES PERFORMED: Left heart catheterization, bilateral coronary angiography, ultrasound guided arterial access, abdominal angiography with runoff INDICATION: Flash pulmonary edema, heart failure, NSTEMI CONSENT:I have discussed the risks, benefits and alternative therapies for the above-mentioned procedure and for both sedation/analgesia as well as necessary blood product administration, if indicated, as they pertain to this patient. The patient has indicated understanding and acceptance of the risks and procedures discussed. PROCEDURE: After the risks, benefits and alternatives of the above mentioned procedure explained in detail with the patient, informed consent was obtained. Patient was taken to the catheterization lab and prepped and draped in usual fashion. Ultrasound guidance was used to assess for arterial access. 1% lidocaine was used to anesthetize the right ulnar artery with some difficulty with the artery rolling. Patient had no pulses either femoral artery and diffuse calcifications of the femoral arteries on ultrasound. A 6-Comoran sheath was placed in the right radial artery using modified Seldinger technique and ultrasound guidance. Left coronary angiography was performed with a 5-Comoran JL 3.5 catheter and right coronary angiography was performed with a 5-Comoran FR5 catheter in various views. A 5-Comoran FR5 catheter was inserted into the left ventricle and pressure measurements were obtained. Given concern of flash pulmonary edema with now low normal LVEDP, and poor femoral pulses and history of AAA and PAD, the decision was made to perform abdominal angiogram. A 6Fr pigtail catheter was inserted into the abdominal aorta and angiography was performed with DSA. The right ulnar sheath was removed and a TR band was placed with hemostasis achieved. The patient tolerated the procedure well. Patient was transported back to the post catheterization holding area in stable con dition. Conscious Sedation: Patient was monitored under the direct supervision of myself for conscious sedation using Versed and fentanyl for a total duration of 58 minutes HEMODYNAMICS: Ao: 134/76 LV: 138/1, LVEDP 4 SELECTIVE CORONARY ARTERIOGRAPHY: LEFT MAIN: The left main is a large caliber vessel which bifurcates into the LAD and circumflex. There is no significant stenosis. LEFT ANTERIOR DESCENDING CORONARY ARTERY: LAD is a large caliber vessel which wraps around to the apex. There is mild 10% luminal irregularities. LEFT CIRCUMFLEX CORONARY ARTERY: Left circumflex is a moderate caliber vessel with mild 10% luminal irregularities. RIGHT CORONARY ARTERY: The right coronary artery is a large caliber vessel which gives off a PDA and PLV branch and is the dominant vessel. There is no significant stenosis. ABDOMINAL ANGIOGRAPHY: There is infrarenal AAA with occlusion of the infrarenal aorta. There is difficulty visualizing the proximal portion of the left and right renal arteries however appear to be patent. There is haziness of the proximal left renal artery which may represent a more significant stenosis vs motion artifact. Consider CTA, ultrasound or repeating dedicated catheter angiography if clinically indicated. FINAL IMPRESSION: 1. Mild 10% circumflex and 10% LAD stenosis 2. Low normal left sided filling pressures 3. Relatively patent bilateral renal arteries however haziness of the proximal left renal artery and cannot exclude more significant stenosis 4. Infrarenal AAA with occlusion PLAN: 1. Aggressive risk factor modification per most recent ACC/AHA guidelines. 2. Symptoms concerning for flash pulmonary edema may be related to renal artery stenosis. Given progression of AAA disease and possibility of dissection (previously patent and now occluded AAA), would consider noninvasive testing first with CTA or renal ultrasound to more definitively evaluate for renal artery stenosis. If still concern or still symptomatic may consider direct catheter directed angiography and possible renal artery stenting.
[2024-11-11] MEDS: ESCITALOPRAM 10 MG TAB PO SCH (08:58)
[2024-11-11] MEDS: RIVAROXABAN 2.5 MG TABLET PO SCH (10:34)
[2024-11-11] MEDS: cilostazoL 100 MG TAB PO SCH (10:35)
[2024-11-11 11:33] LABS: HCT 41.6 % (34.0-46.0); HGB 13.8 gm/dL (11.4-16.0); MCH 30.4 pg (25.0-35.0); MCHC 33.2 g/dL (31.0-37.0); MCV 91.5 fL (80.0-100.0); Mean Platelet Volume 9.1; Platelet Count 184 k/uL (150-450); RBC 4.54 m/uL (3.80-5.40); RDW 15.3 % (11.5-15.5); WBC 6.9 k/uL (3.8-10.6)
--- NOTE | 2024-11-11 11:38 | P.PN ---
Subjective Progress Note Date: 11/11/24 Hospital course: Patient is a pleasant 83-year-old female with a past medical history of hypertension, PAD, and depression.. She presented to the emergency department on 11/06/2024 with a chief complaint of shortness of breath. Upon arrival to our facility, patient underwent evaluation in the emergency department. Vital signs upon arrival show blood pressure 113/69, heart rate 71, respiratory rate 18, and SpO2 of 93% on room air. 97.4 F. EKG completed showing normal sinus rhythm with a left bundle branch block at 90 bpm T wave inversion in lateral leads I, aVL, V5 and V6. Chest x-ray completed showing bibasilar airspace opacities with mild cardiomegaly and pulmonary vascular congestion concerning for CHF. Labs completed and reviewed. CBC unremarkable. BMP showing mild hyponatremia with sodium of 134 and hypocarbia with bicarb of 18 and anion gap also elevated at 13. BUN 31, creatinine 0.94, GFR of 56. Blood glucose 146. Magnesium slightly low at 1.6. Liver profile unremarkable. Troponin 0.013. Patient admitted under our services with consultation to cardiology. Troponins trended throughout the night resulting in 0.013, 0.130, and 0.257. Echocardiogram was completed showing a severely reduced EF of 20 to 25% with global hypokinesis, mild to moderate mitral regurgitation, and mild tricuspid regurgitation. Patient was taken for cardiac cath on 11/10/2024 which revealed an infrarenal AAA with occlusion, bilateral renal arteries, low normal left-sided filling pressures, and mild 10% circumflex and 10% LAD stenosis. Cardiology recommending aggressive risk factor modification and stating symptoms concerning for flash pulmonary edema possibly related to renal artery stenosis. Order was placed for ultrasound of renal artery duplex for further evaluation. Physical exam: Patient was seen and fully evaluated at bedside this morning. She was resting comfortably in bed after returning from restroom. She denies having any chest pain or shortness of breath. She reports she did have an episode of sharp pain to left anterior chest earlier this morning but states all is resolved at this time. She denies having any exertional chest pain or shortness of breath with exertion. She denies any other complaints at this time. Patient updated that we are waiting on completion of renal artery ultrasound and further recommendations from cardiology pending these results. Vital signs reviewed and stable. General: Nontoxic, no distress and appears stated age. Derm: Skin warm and dry, normal coloration for ethnicity. Head: Atraumatic, normocephalic and symmetric. Eyes: EOM's intact, no lid lag, and anicteric sclera Mouth: no lip lesions, mucus membranes moist Cardiovascular: regular rate and rhythm with normal S1S2, systolic murmur, positive posterior tibial pulses bilaterally, and cap refill < 2 seconds. Lungs: Respirations even, regular, and unlabored on room air. Lungs CTA bilaterally, no rhonchi, no rales, no wheezing, and no accessory muscle usage. Abdominal: soft, nontender to palpation, no guarding, no appreciable organomegaly Ext: ROM intact. No gross muscle atrophy, no edema, no contractures Neuro: Speech clear, face symmetrical and CN II-XII grossly intact with no noted focal neuro deficits Psych: Alert and oriented to person, place, time, and situation. Appropriate and pleasant affect. Assessment and Plan of Care: NSTEMI Acute systolic CHF exacerbation Cardiomyopathy with EF 20-25%. Infrarenal AAA with occlusion Hypertension Hyperlipidemia Left bundle branch block, previously known -Cardiology following, discussed plan of care with cardiology MACHINE RUG CLEANER. -Continue telemetry monitoring -Ultrasound renal artery duplex to be completed -Continue cardiac medication regimen with aspirin 81 mg daily, atorvastatin 40 mg nightly, Pletal 50 mg daily, Lasix 20 mg daily, metoprolol 25 mg twice daily, Entresto 24-26 mg tablets twice daily, Aldactone 12.5 mg daily, and Xarelto 2.5 mg twice daily. -Continue close monitoring of lites and was. -Daily weights. Depression -Continue daily medication regimen with Lexapro 10 mg daily. Data and imaging reviewed: Echocardiogram was completed showing a severely reduced EF of 20 to 25% with global hypokinesis, mild to moderate mitral regurgitation, and mild tricuspid regurgitation. Cardiac cath on 11/10/2024 revealed an infrarenal AAA with occlusion, bilateral renal arteries, low normal left-sided filling pressures, and mild 10% circumflex and 10% LAD stenosis. Morning labs reviewed. CBC unremarkable. BMP showing mild prerenal azotemia with BUN of 33 otherwise normal findings. Blood glucose 140. Magnesium slightly low at 1.7. Liver profile showing elevated AST of 36 and low protein of 6.2. Vital signs reviewed. Blood pressure 120/71, heart rate 85, respiratory rate 20, [id number] F, and SpO2 of 97% on room air. CODE STATUS: Full code DVT prophylaxis: Xarelto Discussed with: Patient, RN, and cardiology MACHINE RUG CLEANER Anticipated discharge date: Pending clinical course Anticipated discharge place: Home Patient was seen independently by Nurse Pracitioner. This document was prepared using [employer] dictation software. Please allow for errors in transcription coordinator, while rare they do occur. Sabas Muse MACHINE RUG CLEANER rendered care for this patient independently, reviewed the findings and plan as documented in the note above and agree with plan. I did not physically speak with or examine the patient on this date. Objective - Vital Signs Vital signs: Vital Signs Temp 98.7 F 11/11/24 07:51 Pulse 85 11/11/24 07:51 Resp 20 11/11/24 07:51 BP 120/71 11/11/24 07:51 Pulse Ox 97 11/11/24 07:51 FiO2 45 11/07/24 15:25 Intake & Output 11/10/24 11/11/24 11/11/24 18:59 06:59 18:59 Intake Total 240 480 Output Total 1700 400 Balance -1460 80 Weight 38.7 kg 37.3 kg Intake: Oral 240 480 Output: Urine 1700 400 Other: Voiding Method Indwelling Catheter Indwelling Catheter Indwelling Catheter # Bowel Movements 1 - Labs CBC & Chem 7: 11/11/24 10:55 11/11/24 10:55
[2024-11-11 11:51] LABS: ALT 36 U/L (4-34); AST 32 U/L (14-36); African American GFR (CKD) 63 (>60 ml/min/1.73 sqM); Albumin 3.7 g/dL (3.5-5.0); Alkaline Phosphatase 70 U/L (38-126); Anion Gap 11 mmol/L; Blood Urea Nitrogen 33 mg/dL (7-17); Calcium 9.4 mg/dL (8.4-10.2); Carbon Dioxide 27 mmol/L (22-30); Chloride 99 mmol/L (98-107); Glucose 140 mg/dL (74-99); Magnesium 1.7 mg/dL (1.6-2.3); Non-African American GFR(CKD) 54 (>60 ml/min/1.73 sqM); Potassium 3.8 mmol/L (3.5-5.1); Sodium 137 mmol/L (137-145); Total Bilirubin 0.5 mg/dL (0.2-1.3); Total Protein 6.2 g/dL (6.3-8.2)
--- NOTE | 2024-11-11 13:47 | P.PN ---
Subjective HISTORY OF PRESENT ILLNESS: This is an 83-year-old female patient of Dr. Parr with past medical history of hypertension, hyperlipidemia, left bundle branch block, cardiomyopathy with previous EF of 35 to 40%, remote history of tobacco use and dependence, PAD. We have been asked to evaluate the patient for acute pulmonary edema. Patient p resented to the hospital due to shortness of breath cough and anxiety. Patient also had some nausea and weakness. Blood pressure 135/68, heart rate 108, pulse ox 93% on 2 L nasal cannula. Patient is seen today in the emergency center waiting for bed on the cardiac stepdown unit. Patient is status post 1 dose of IV Lasix 20 mg and started on Nitropaste, status post 1.5 L IV fluid. Patient has been started on IV Lasix 20 mg daily -EKG: Sinus rhythm with left bundle branch block, LAD -Chest x-ray: Bibasilar airspace opacities with mild cardiomegaly and pulmonary vascular congestion. -Laboratory studies: CBC, INR unremarkable. Sodium 134, potassium 3.7, BUN 31 creatinine 0.94. Troponin 0.013 and 0.13. proBNP 16,000. Influenza, RSV COVID-19 not detected. -Home cardiac medications: Aspirin 81 mg daily, Pletal 50 mg daily, lisinopril 5 mg daily, metoprolol tartrate 25 mg twice daily, Xarelto 2.5 mg twice daily, simvastatin 40 mg at bedtime. 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 Sluggish flow of the distal aorta with some 30% narrowing. -Echocardiogram performed in the office on 03/05/2022 revealed EF of 40%, moderate concentric left ventricular hypertrophy. Moderate mitral regurgitation. Mild tricuspid regurgitation, PASP 23 mmHg. Mild pulmonic regurgitation. -Lexiscan Cardiolite stress test performed in the office on 05/12/2021 revealed nondiagnostic Lexiscan stress test because of baseline left bundle branch block. Small fixed defect involving the anterior apical and septal area most probably secondary to left bundle branch block. No definite reversible ischemia. Gated images show atypical motion of the septum with EF 50%. 11/07 Patient was scheduled for cardiac catheterization today with Dr. Parr. A team called this morning for fluid overload patient was given additional dose of IV Lasix 40 mg and was placed on BiPAP. Cardiac catheterization will be postponed until Sunday. Blood pressure 90/59, heart rate 74, pulse ox 100% on B iPAP at FiO2 80%. Repeat blood work reveals WBC 10.7, hemoglobin 12.9. Sodium 136, potassium 4.7, BUN 29 creatinine 1.05. Repeat chest x-ray Reveals diffuse increased lung markings. Pulmonary edema likely within the differential. Other etiologies not excluded. Echocardiogram is pending. 11/11/2024 Patient underwent cardiac catheterization yesterday with Dr. Parr revealing mild 10% circumflex and 10% mid LAD stenosis, low normal left-sided filling pressures, relatively patent bilateral renal arteries however haziness of the proximal left renal artery and cannot exclude more significant stenosis. Infrarenal AAA with occlusion. PHYSICAL EXAM: VITAL SIGNS: Reviewed. GENERAL: Well-developed in no acute distress. NECK: Supple. No JVD or thyromegaly LUNGS: Respirations even and unlabored. Lungs essentially clear to auscultation bilaterally. HEART: Regular rate and rhythm. S1 and S2 heard. EXTREMITIES: Normal range of motion. No clubbing or cyanosis. Peripheral pulses intact. No lower extremity edema ASSESSMENT: NSTEMI, status post cardiac catheterization revealing mild 10% circumflex and 10% LAD stenosis Flash pulmonary edema Acute on chronic heart failure with reduced EF Hypertension Hyperlipidemia Left bundle branch block Nonischemic cardiomyopathy, 20 to 25% PAD Remote history of tobacco use and dependence Moderate protein calorie malnutrition with BMI of 16 Infrarenal AAA with occlusion PLAN: Discontinue IV Lasix. Begin oral Lasix 20 mg daily Discontinue IV heparin Resume Xarelto and Pletal Continue additional cardiac medications Renal artery ultrasound ordered. Await results Further recommendations pending patient course Nurse practitioner note has been reviewed by physician. Signing provider agrees with the documented findings, assessment, and plan of care documented by SWITCHBOARD INSTALLER as a scribe. Objective - Vital Signs Vital signs: Vital Signs Temp 97.3 F L 11/11/24 12:01 Pulse 75 11/11/24 12:01 Resp 18 11/11/24 12:01 BP 94/58 11/11/24 12:01 Pulse Ox 99 11/11/24 12:01 FiO2 45 11/07/24 15:25 Intake & Output 11/10/24 11/11/24 11/11/24 18:59 06:59 18:59 Intake Total 240 480 Output Total 1700 400 Balance -1460 80 Weight 38.7 kg 37.3 kg Intake: Oral 240 480 Output: Urine 1700 400 Other: Voiding Method Indwelling Catheter Indwelling Catheter Indwelling Catheter # Bowel Movements 1 - Labs CBC & Chem 7: 11/11/24 10:55 11/11/24 10:55 Labs: Abnormal Lab Results - Last 24 Hours (Table) 11/11/24 Range/Units 10:55 BUN 33 H (7-17) mg/dL Glucose 140 H (74-99) mg/dL ALT 36 H (4-34) U/L Total Protein 6.2 L (6.3-8.2) g/dL
--- NOTE | 2024-11-11 13:48 | P.GSCN ---
History of Present Illness Consult date: 11/11/24 Reason for Consult: AAA occlusion Requesting physician: Sabas Muse History of present illness: This is a pleasant 83-year-old female with a known history of abdominal aortic aneurysm, lower extremity claudication who had presented to the emergency department for shortness of breath. Yesterday she had undergone a cardiac catheterization with Dr. Parr with findings of mild circumflex and LAD stenosis, normal left sided filling pressures he then did an abdominal aortogram with findings of patent bilateral renal arteries however haziness of proximal left renal artery and could not exclude more significant stenosis. Infrarenal AAA with occlusion. Vascular surgery was consulted for further evaluation. Patient states she had followed in the past with a vascular surgeon out of [facility] that had been monitoring her for her abdominal aortic aneurysm and according to patient states that she was not a good surgical candidate for repair. She states she does get claudication with short distance of walking. This affects both of her lower extremities. She also states she was having shortness of breath especially with ambulation. She is currently sitting up in bed does not appear in any acute distress. Denies any pain in her abdomen back or lower extremities at this time. Review of Systems A 14 point review systems was completed all pertinent positives and negatives as stated in the HPI. Past Medical History Past Medical History: Hearing Disorder / Deafness, Hypertension Additional Past Medical History / Comment(s): Osteoporosis History of Any Multi-Drug Resistant Organisms: None Reported Past Surgical History: Bowel Resection, Section, Orthopedic Surgery Additional Past Surgical History / Comment(s): L elbow surgery. COLONOSCOPY Past Anesthesia/Blood Transfusion Reactions: Previous Problems w/ Anesthesia, Postoperative Nausea & Vomiting (PONV) Additional Past Anesthesia/Blood Transfusion Reaction / Comm: HYPER FEELING AFTER SURGERY SOMETIMES WITH ANESTHESIA Past Psychological History: No Psychological Hx Reported Smoking Status: Former smoker Past Alcohol Use History: None Reported Additional Past Alcohol Use History / Comment(s): quit smoking last year. smoked many years tapered off gradually. started late 40's Past Drug Use History: None Reported Additional Drug Use History / Comment(s): Smokes 1 cigarette per day. - Past Family History Father History Unknown: Yes Family Medical History: Cancer Mother History Unknown: Yes Family Medical History: No Reported History Medications and Allergies Home Medications Medication Instructions Recorded Confirmed Type Aspirin 81 mg PO DAILY 07/14/14 11/06/24 History Lisinopril [Prinivil] 5 mg PO DAILY 07/14/14 11/06/24 History Rivaroxaban [Xarelto] 2.5 mg PO BID 01/05/23 11/06/24 History Simvastatin [Zocor] 40 mg PO HS 01/05/23 11/06/24 History cilostazoL [Pletal] 50 mg PO DAILY 01/05/23 11/06/24 History Escitalopram Oxalate [Lexapro] 10 mg PO DAILY 11/06/24 11/06/24 History Metoprolol Tartrate [Lopressor] 25 mg PO BID 11/06/24 11/06/24 History Allergies Allergy/AdvReac Type Severity Reaction Status Date / Time No Known Allergies Allergy Verified 11/06/24 08:16 Surgical - Exam Vital Signs Temp Pulse Resp BP Pulse Ox 97.6 F 100 20 178/108 94 L 11/06/24 05:23 11/06/24 05:23 11/06/24 05:23 11/06/24 05:23 11/06/24 05:23 General appearance: The patient is alert, oriented, appears in no acute distress. HET: Head is normocephalic and atraumatic. Pupils are equal and reactive. Neck: Supple. Heart: Regular. Lungs: Equal expansion, normal respiratory effort. Abdomen: Soft, nontender, nondistended. Extremities: Normal skin color and turgor. Bilateral feet cool to the touch, nonpalpable DP pulses. Neurological: No focal deficits. Strength and sensation are grossly intact. Results - Labs 11/11/24 10:55 11/11/24 10:55 Abnormal Lab Results - Last 24 Hours (Table) 11/11/24 Range/Units 10:55 BUN 33 H (7-17) mg/dL Glucose 140 H (74-99) mg/dL ALT 36 H (4-34) U/L Total Protein 6.2 L (6.3-8.2) g/dL Diabetes panel 11/11/24 Range/Units 10:55 Sodium 137 (137-145) mmol/L Potassium 3.8 (3.5-5.1) mmol/L Chloride 99 (98-107) mmol/L Carbon Dioxide 27 (22-30) mmol/L BUN 33 H (7-17) mg/dL Creatinine 0.97 (0.52-1.04) mg/dL Glucose 140 H (74-99) mg/dL Calcium 9.4 (8.4-10.2) mg/dL AST 32 (14-36) U/L ALT 36 H (4-34) U/L Alkaline Phosphatase 70 (38-126) U/L Total Protein 6.2 L (6.3-8.2) g/dL Albumin 3.7 (3.5-5.0) g/dL Calcium panel 11/11/24 Range/Units 10:55 Calcium 9.4 (8.4-10.2) mg/dL Albumin 3.7 (3.5-5.0) g/dL Pituitary panel 11/11/24 Range/Units 10:55 Sodium 137 (137-145) mmol/L Potassium 3.8 (3.5-5.1) mmol/L Chloride 99 (98-107) mmol/L Carbon Dioxide 27 (22-30) mmol/L BUN 33 H (7-17) mg/dL Creatinine 0.97 (0.52-1.04) mg/dL Glucose 140 H (74-99) mg/dL Calcium 9.4 (8.4-10.2) mg/dL Adrenal panel 11/11/24 Range/Units 10:55 Sodium 137 (137-145) mmol/L Potassium 3.8 (3.5-5.1) mmol/L Chloride 99 (98-107) mmol/L Carbon Dioxide 27 (22-30) mmol/L BUN 33 H (7-17) mg/dL Creatinine 0.97 (0.52-1.04) mg/dL Glucose 140 H (74-99) mg/dL Calcium 9.4 (8.4-10.2) mg/dL Total Bilirubin 0.5 (0.2-1.3) mg/dL AST 32 (14-36) U/L ALT 36 H (4-34) U/L Alkaline Phosphatase 70 (38-126) U/L Total Protein 6.2 L (6.3-8.2) g/dL Albumin 3.7 (3.5-5.0) g/dL Assessment and Plan Assessment: 1. Abdominal aortic aneurysm occlusion 2. Bilateral lower extremity claudication 3. Shortness of breath 4. Previous known history of abdominal aortic aneurysm 5. History of hypertension Plan: 1. CTA abdomen/aorta with runoff ordered 2. Patient will be discussed further with Dr. Parr to obtain a better history 3. Continue with recommendations from cardiology 4. Further recommendations forthcoming per vascular surgeon based on clinical course Thank you for this consultation, we will continue to follow. The impression and plan of care has been dictated as directed. I performed a history and examination of this patient, discussed the same with the dictator. I agree with the dictator's note ,documented as a scribe. Any additional findings or plans will be noted.
[2024-11-11] MEDS: MAGNESIUM SULFATE-D5W PMX 1 GM in DEXTROSE/WATER 1 100ML.BAG IVPB SCH (13:57)
--- NOTE | 2024-11-11 16:43 | CT ---
EXAMINATION TYPE: CT angio abd aorta w/Runoff DATE OF EXAM: 11/11/2024 4:13 PM COMPARISON: None. CLINICAL INDICATION: Female, 83 years old with history of AAA occlusion seen on cardiac cath, claudic ation; [facility], AAA TECHNIQUE: Multiple thin slice sub-millimeter images were obtained after administration of contrast. MIP/3-D reconstructed images and maximum intensity projection images were obtained. CT angio abd aor ta w/Runoff CT Contrast: Contrast used:80 ml mL of Isovue 370 without and with IV Contrast, Oral contrast used: None CT DLP: 1064.5 mGycm, Automated exposure control for dose reduction was used. FINDINGS: CTA Abdomen and pelvis: Vascular calcifications within the abdominal aorta. The descending distal tho racic aorta within the [id number] has a 2.4 cm diameter. This narrows at the diaphragm. Aorta is t ortuous. There is an abdominal aortic aneurysm with an AP diameter of 4.4 cm. No contrast passes thro ugh the abdominal aorta aneurysm. Iliac vessels are occluded internal and external iliac vessels appe ar occluded small amount of reconstitution may be within the profunda femoris vessels. Superficial fe moral arteries do not have visible contrast. No significant contrast within the popliteal arteries is evident. Trifurcation vessels are identified. This may be due to calcification. Minimal contrast a b e present. Anterior tibial arteries are identified at the ankles bilaterally. Posterior tibial arteri es are not identified at the ankle. CT ABDOMEN: Liver: Normal Spleen: Normal Pancreas: Pancreatic duct may be slightly prominent. Adrenal glands: The adrenal glands are normal. Gallbladder: Normal Kidneys: No masses are evident. No hydronephrosis is present. Cortical renal cysts are present bila terally Aorta: Vascular calcification is within the aorta. This appears occluded within the aneurysm. Inferior vena cava: Normal. CT PELVIS: Loops of bowel within the abdomen and pelvis are normal. Study is without contrast limiting evalu ation Appendix: Not identified Urinary bladder: Normal. Genitourinary structures: Calcified fibroids. Within the uterus. Adnexa are unremarkable. Osseous structures: No suspicious lytic or sclerotic lesions. IMPRESSION: 1. Occlusion of the abdominal aortic aneurysm. Contrast within vessels is not clearly identified with in the major vessels beyond the occluded aneurysm. 2. Dense extensive vascular calcification limits evaluation of subtle contrast reconstitution of vess els within the pelvis and lower extremities. A Red level critical message alert has been initiated for Avelina Yoselyn via the [employer] System on 11/11/2024 4:40 PM. This message alert has been sent to Avelina Topete via the preferences provided by the clinician for the receipt of Radiology Critical Findings. Message ID [id number]. [facility], Workstation: [facility], 11/11/2024 4:41 PM
[2024-11-12 07:12] LABS: HCT 38.3 % (34.0-46.0); HGB 12.8 gm/dL (11.4-16.0); MCH 30.3 pg (25.0-35.0); MCHC 33.6 g/dL (31.0-37.0); MCV 90.3 fL (80.0-100.0); Mean Platelet Volume 8.8; Platelet Count 157 k/uL (150-450); RBC 4.24 m/uL (3.80-5.40); RDW 15.4 % (11.5-15.5); WBC 6.5 k/uL (3.8-10.6)
[2024-11-12 07:29] LABS: ALT 36 U/L (4-34); AST 30 U/L (14-36); African American GFR (CKD) 66 (>60 ml/min/1.73 sqM); Albumin 3.3 g/dL (3.5-5.0); Alkaline Phosphatase 69 U/L (38-126); Anion Gap 8 mmol/L; Blood Urea Nitrogen 32 mg/dL (7-17); Calcium 8.9 mg/dL (8.4-10.2); Carbon Dioxide 26 mmol/L (22-30); Chloride 100 mmol/L (98-107); Glucose 92 mg/dL (74-99); Magnesium 2.1 mg/dL (1.6-2.3); Non-African American GFR(CKD) 57 (>60 ml/min/1.73 sqM); Potassium 3.7 mmol/L (3.5-5.1); Sodium 134 mmol/L (137-145); Total Bilirubin 0.5 mg/dL (0.2-1.3); Total Protein 5.6 g/dL (6.3-8.2)
[2024-11-12] MEDS ORDERED: HYDROcodone/APAP 5-325MG 1 EACH TAB PO PRN (08:46)
--- NOTE | 2024-11-12 08:48 | US ---
EXAMINATION TYPE: US renal artery duplex complete DATE OF EXAM: 11/12/2024 COMPARISON: Multiple 11/11/2024 - CT Angio Runoff 06/06/2023 - US Renal 01/05/2023 - CT Angio CLINICAL INDICATION: Female, 83 years old with history of R/O Renal artery stenosis; Hx HTN; Former s moker x few years TECHNIQUE: Grayscale, color Doppler and spectral Doppler imaging of the bilateral renal arteries and kidneys. FINDINGS: MEASUREMENTS: RENAL SIZE: Right Kidney: 9.9 x 4.1 x 4.8 cm Left Kidney: 9.2 x 4.8 x 4.4 cm Right Kidney: Cystic areas seen; Calcifications seen throughout; Limited visualization due to overly ing bowel gas, rib shadow, and pathology. Left Kidney: Cystic areas noted; Calcifications seen throughout; Limited visualization due to overlyi ng bowel gas, rib shadow, and pathology. Abd Aorta: Abdominal aortic aneurysm redemonstrated RESISTANCE INDEX Right: 0.81 Left: 0.85 RA/AO RATIO (< 3.5 ) Right: 1.2 Left: 1.6 RENAL ARTERY VELOCITY ( < 180 cm/s) Right: 88 Left: 116 District Service Manager Notes: Incredibly difficult and limited exam due to know abdominal aortic aneurysm and k nown renal stenosis IMPRESSION: Suboptimal, nondiagnostic study. Large AAA begins at level of the renal arteries. Review of CTA 1 day earlier shows significant calcified plaque at the origin of the right renal artery, maria teresa ot exclude focal stenosis at this level. Similar more prominent calcified plaque at the origin and mi d to distal segment of the left renal artery in which significant focal stenosis cannot be excluded. [facility], , 11/12/2024 8:46 AM
[2024-11-12] MEDS: ACETAMINOPHEN TAB 325 MG TAB PO PRN (08:51)
[2024-11-12] MEDS: FUROSEMIDE 20 MG TAB PO SCH (08:52)
--- NOTE | 2024-11-12 10:33 | P.PN ---
Subjective Progress Note Date: 11/12/24 Principal diagnosis: AAA with occlusion, peripheral arterial disease Patient is seen and examined today as a follow-up. Yesterday she underwent a CTA abdomen aorta pelvis with runoff with findings of occluded 4.4 cm abdominal aortic aneurysm with extensive vascular calcification of the pelvic and lower extremity vessels. Patient also has a history of subclavian stenosis and has followed with Dr. Delvalle last seen in May of this year. Renal artery ultrasound reports suboptimal study secondary to large AAA with calcified plaque of the renal arteries. Patient states she has chronic pain in bilateral lower extremities mostly from her ankle down left worse than right with ambulation. Numbness and tingling at rest left greater than right. Objective - Vital Signs Vital signs: Vital Signs Temp 97.9 F 11/12/24 08:41 Pulse 74 11/12/24 08:41 Resp 18 11/12/24 08:41 BP 132/64 11/12/24 08:41 Pulse Ox 97 11/12/24 08:41 FiO2 45 11/07/24 15:25 Intake & Output 11/11/24 11/12/24 11/12/24 18:59 06:59 18:59 Output Total 600 Balance -600 Weight 37.1 kg Output: Urine 600 Other: Voiding Method Indwelling Catheter Toilet # Voids 1 - Exam General appearance: The patient is alert, oriented, appears in no acute distress. HET: Head is normocephalic and atraumatic. Neck: Supple. Heart: Regular. Lungs: Equal expansion, normal respiratory effort. Abdomen: Soft, nontender, nondistended. Extremities: Normal skin color and turgor. Palpable bilateral radial pulses. Nonpalpable DP and PT pulses. Sensorimotor intact. Feet cool to the touch but adequate capillary refill. Full range of motion. Neurological: No focal deficits. Alert and oriented. - Labs CBC & Chem 7: 11/12/24 06:23 11/12/24 06:23 Labs: Abnormal Lab Results - Last 24 Hours (Table) 11/11/24 11/12/24 Range/Units 10:55 06:23 Sodium 134 L (137-145) mmol/L BUN 33 H 32 H (7-17) mg/dL Glucose 140 H (74-99) mg/dL ALT 36 H 36 H (4-34) U/L Total Protein 6.2 L 5.6 L (6.3-8.2) g/dL Albumin 3.3 L (3.5-5.0) g/dL Assessment and Plan Assessment: 1. Abdominal aortic aneurysm occlusion 2. Bilateral lower extremity peripheral arterial disease with claudication 3. Shortness of breath 4. Previous known history of abdominal aortic aneurysm 5. History of hypertension 6. Subclavian stenosis Plan: CT angiogram reviewed. Possible surgical options discussed with patient including axillary bifemoral bypass, open aortobifem bypass however patient poor candidate for this surgical procedure. At this time patient wants to think it over however states that she does not think that she wants any surgical procedures done for repair of lower extremity peripheral arterial disease and AAA aneurysm occlusion. Further discussion will be had with Dr. Delvalle with further recommendations forthcoming. Thank you for this consultation, we will continue to follow. The impression and plan of care has been dictated as directed. Dr. Delvalle I performed a history and examination of this patient, discussed the same with the dictator. I agree with the dictator's note ,documented as a scribe. Any additional findings or plans will be noted.
[2024-11-12] MEDS: SODIUM CHLORIDE 0.9% 500 ML 500 ML IV ONE (12:33)
--- NOTE | 2024-11-12 13:32 | P.PN ---
Subjective HISTORY OF PRESENT ILLNESS: This is an 83-year-old female patient of Dr. Parr with past medical history of hypertension, hyperlipidemia, left bundle branch block, cardiomyopathy with previous EF of 35 to 40%, remote history of tobacco use and dependence, PAD. We have been asked to evaluate the patient for acute pulmonary edema. Patient p resented to the hospital due to shortness of breath cough and anxiety. Patient also had some nausea and weakness. Blood pressure 135/68, heart rate 108, pulse ox 93% on 2 L nasal cannula. Patient is seen today in the emergency center waiting for bed on the cardiac stepdown unit. Patient is status post 1 dose of IV Lasix 20 mg and started on Nitropaste, status post 1.5 L IV fluid. Patient has been started on IV Lasix 20 mg daily -EKG: Sinus rhythm with left bundle branch block, LAD -Chest x-ray: Bibasilar airspace opacities with mild cardiomegaly and pulmonary vascular congestion. -Laboratory studies: CBC, INR unremarkable. Sodium 134, potassium 3.7, BUN 31 creatinine 0.94. Troponin 0.013 and 0.13. proBNP 16,000. Influenza, RSV COVID-19 not detected. -Home cardiac medications: Aspirin 81 mg daily, Pletal 50 mg daily, lisinopril 5 mg daily, metoprolol tartrate 25 mg twice daily, Xarelto 2.5 mg twice daily, simvastatin 40 mg at bedtime. 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 Sluggish flow of the distal aorta with some 30% narrowing. -Echocardiogram performed in the office on 03/05/2022 revealed EF of 40%, moderate concentric left ventricular hypertrophy. Moderate mitral regurgitation. Mild tricuspid regurgitation, PASP 23 mmHg. Mild pulmonic regurgitation. -Lexiscan Cardiolite stress test performed in the office on 05/12/2021 revealed nondiagnostic Lexiscan stress test because of baseline left bundle branch block. Small fixed defect involving the anterior apical and septal area most probably secondary to left bundle branch block. No definite reversible ischemia. Gated images show atypical motion of the septum with EF 50%. 11/07 Patient was scheduled for cardiac catheterization today with Dr. Parr. A team called this morning for fluid overload patient was given additional dose of IV Lasix 40 mg and was placed on BiPAP. Cardiac catheterization will be postponed until Sunday. Blood pressure 90/59, heart rate 74, pulse ox 100% on B iPAP at FiO2 80%. Repeat blood work reveals WBC 10.7, hemoglobin 12.9. Sodium 136, potassium 4.7, BUN 29 creatinine 1.05. Repeat chest x-ray Reveals diffuse increased lung markings. Pulmonary edema likely within the differential. Other etiologies not excluded. Echocardiogram is pending. 11/11/2024 Patient underwent cardiac catheterization yesterday with Dr. Parr revealing mild 10% circumflex and 10% mid LAD stenosis, low normal left-sided filling pressures, relatively patent bilateral renal arteries however haziness of the proximal left renal artery and cannot exclude more significant stenosis. Infrarenal AAA with occlusion. 11/12/2024 Patient examined this morning at the bedside. Patient currently denies chest pain or pressure. She denies shortness of breath. Renal artery duplex revealed suboptimal nondiagnostic study. Large AAA begins at the level of the renal arteries. CT angio performed revealing occlusion of the abdominal aortic aneurysm. Contrast within vessels is not clearly identified within the major vessels beyond the occluded aneurysm. Dense extensive vascular calcification limits evaluation of subtle contrast reconstitution of vessels within the pelvis and lower extremities. PHYSICAL EXAM: VITAL SIGNS: Reviewed. GENERAL: Well-developed in no acute distress. NECK: Supple. No JVD or thyromegaly LUNGS: Respirations even and unlabored. Lungs essentially clear to auscultation bilaterally. HEART: Regular rate and rhythm. S1 and S2 heard. EXTREMITIES: Normal range of motion. No clubbing or cyanosis. Peripheral pulses intact. No lower extremity edema ASSESSMENT: NSTEMI, status post cardiac catheterization revealing mild 10% circumflex and 10 % LAD stenosis Flash pulmonary edema Acute on chronic heart failure with reduced EF Hypertension Hyperlipidemia Left bundle branch block Nonischemic cardiomyopathy, 20 to 25% PAD Remote history of tobacco use and dependence Moderate protein calorie malnutrition with BMI of 16 History of subclavian stenosis Infrarenal AAA with occlusion PLAN: Continue current cardiac medications Continue telemetry monitoring Continue to monitor blood pressure Vascular surgery following for AAA occlusion. Apparently patient is not keen on surgical intervention at this time and would like to continue to think about it. Further recommendations pending patient course Nurse practitioner note has been reviewed by physician. Signing provider agrees with the documented findings, assessment, and plan of care documented by ALMOND GRINDER as a scribe. Objective - Vital Signs Vital signs: Vital Signs Temp 97.9 F 11/12/24 08:41 Pulse 79 11/12/24 11:47 Resp 16 11/12/24 11:47 BP 107/64 11/12/24 12:46 Pulse Ox 93 L 11/12/24 11:47 FiO2 45 11/07/24 15:25 Intake & Output 11/11/24 11/12/24 11/12/24 18:59 06:59 18:59 Intake Total 10 Output Total 600 Balance -600 10 Weight 37.1 kg Intake: IV 10 Invasive Line 2 10 Output: Urine 600 Other: Voiding Method Indwelling Catheter Toilet Toilet # Voids 1 1 # Bowel Movements 2 - Labs CBC & Chem 7: 11/12/24 06:23 11/12/24 06:23 Labs: Abnormal Lab Results - Last 24 Hours (Table) 11/12/24 Range/Units 06:23 Sodium 134 L (137-145) mmol/L BUN 32 H (7-17) mg/dL ALT 36 H (4-34) U/L Total Protein 5.6 L (6.3-8.2) g/dL Albumin 3.3 L (3.5-5.0) g/dL
--- NOTE | 2024-11-12 15:36 | P.PN ---
Subjective Progress Note Date: 11/12/24 Hospital course: Patient is a pleasant 83-year-old female with a past medical history of hypertension, PAD, and depression.. She presented to the emergency department on 11/06/2024 with a chief complaint of shortness of breath. Upon arrival to our facility, patient underwent evaluation in the emergency department. Vital signs upon arrival show blood pressure 113/69, heart rate 71, respiratory rate 18, and SpO2 of 93% on room air. 97.4 F. EKG completed showing normal sinus rhythm with a left bundle branch block at 90 bpm T wave inversion in lateral leads I, aVL, V5 and V6. Chest x-ray completed showing bibasilar airspace opacities with mild cardiomegaly and pulmonary vascular congestion concerning for CHF. Labs completed and reviewed. CBC unremarkable. BMP showing mild hyponatremia with sodium of 134 and hypocarbia with bicarb of 18 and anion gap also elevated at 13. BUN 31, creatinine 0.94, GFR of 56. Blood glucose 146. Magnesium slightly low at 1.6. Liver profile unremarkable. Troponin 0.013. Patient admitted under our services with consultation to cardiology. Troponins trended throughout the night resulting in 0.013, 0.130, and 0.257. Echocardiogram was completed showing a severely reduced EF of 20 to 25% with global hypokinesis, mild to moderate mitral regurgitation, and mild tricuspid regurgitation. Patient was taken for cardiac cath on 11/10/2024 which revealed an infrarenal AAA with occlusion, bilateral renal arteries, low normal left-sided filling pressures, and mild 10% circumflex and 10% LAD stenosis. Cardiology recommending aggressive risk factor modification and stating symptoms concerning for flash pulmonary edema possibly related to renal artery stenosis. Order was placed for ultrasound of renal artery duplex for further evaluation. Physical exam: Patient was seen and fully evaluated at bedside this morning. She was ambulating back from restroom. She reports experiencing mild intermittent leg pain, unchanged denies having any other complaints including chest pain, palpitations, shortness of breath, dizziness, lightheadedness, or experiencing any focal weakness in her extremities.. Vital signs reviewed and stable. General: Nontoxic, no distress and appears stated age. Derm: Skin warm and dry, normal coloration for ethnicity. Head: Atraumatic, normocephalic and symmetric. Eyes: EOM's intact, no lid lag, and anicteric sclera Mouth: no lip lesions, mucus membranes moist Cardiovascular: regular rate and rhythm with normal S1S2, systolic murmur, and cap refill slightly delayed around 4 seconds in bilateral lower extremities. Lungs: Respirations even, regular, and unlabored on room air. Lungs CTA bilaterally, no rhonchi, no rales, no wheezing, and no accessory muscle usage. Abdominal: soft, nontender to palpation, no guarding, no appreciable organomegaly Ext: ROM intact. No gross muscle atrophy, no edema, no contractures Neuro: Speech clear, face symmetrical and CN II-XII grossly intact with no noted focal neuro deficits Psych: Alert and oriented to person, place, time, and situation. Appropriate and pleasant affect. Assessment and Plan of Care: NSTEMI Acute systolic CHF exacerbation Cardiomyopathy with EF 20-25%. Infrarenal AAA with occlusion Hypertension Hyperlipidemia Left bundle branch block, previously known -Cardiology following, discussed plan of care with cardiology POLICY SERVICE COORDINATOR and ball shagger Dr. Parr. -Vascular surgery consulted for evaluation of infrarenal AAA with occlusion, discussed case and CT results in detail with vascular surgery POLICY SERVICE COORDINATOR. -CTA showing occlusion of the abdominal aortic aneurysm contrast within vessels not clearly identified within the major vessels beyond the occluded aneurysm, dense extensive vascular calcification limits evaluation of subtle contrast reconstitution of vessels within the pelvis and lower extremities. -Cardiac cath on 11/10/2024 revealed an infrarenal AAA with occlusion, bilateral renal arteries, low normal left-sided filling pressures, and mild 10% circumflex and 10% LAD stenosis. -Echocardiogram was completed showing a severely reduced EF of 20 to 25% with global hypokinesis, mild to moderate mitral regurgitation, and mild tricuspid regurgitation. -Patient to remain on continuous telemetry monitoring -Continue cardiac medication regimen with aspirin 81 mg daily, atorvastatin 40 mg nightly, Pletal 50 mg daily, Lasix 20 mg daily, metoprolol 25 mg twice daily, Entresto 24-26 mg tablets twice daily, Aldactone 12.5 mg daily, and Xarelto 2.5 mg twice daily. Depression -Continue daily medication regimen with Lexapro 10 mg daily. Data and imaging reviewed: -CTA showing occlusion of the abdominal aortic aneurysm contrast within vessels not clearly identified within the major vessels beyond the occluded aneurysm, dense extensive vascular calcification limits evaluation of subtle contrast reconstitution of vessels within the pelvis and lower extremities. Morning labs reviewed. CBC unremarkable. BMP showing mild hyponatremia with sodium of 134 and prerenal azotemia with BUN of 32. Blood glucose 92. Magnesium 2.1. Liver profile showing slightly elevated ALT of 36 otherwise normal findings. Albumin was low at 3.3. Vital signs reviewed. Blood pressure 132/64, heart rate 74, respiratory rate 18, temp 97.9 F, and SpO2 of 97% on room air. CODE STATUS: Full code DVT prophylaxis: Xarelto Discussed with: Patient, RN, and vascular surgery POLICY SERVICE COORDINATOR Anticipated discharge date: Pending clinical course Anticipated discharge place: Home Patient was seen independently by Nurse Pracitioner. This document was prepared using [employer] dictation software. Please allow for errors in supervisor [employer], while rare they do occur. Sabas Muse NP rendered care for this patient independently, reviewed the findings and plan as documented in the note above and agree with plan. I did not physically speak with or examine the patient on this date. Objective - Vital Signs Vital signs: Vital Signs Temp 98.2 F 11/11/24 20:04 Pulse 84 11/12/24 05:04 Resp 18 11/12/24 05:04 BP 107/52 11/12/24 05:04 Pulse Ox 96 11/12/24 05:04 FiO2 45 11/07/24 15:25 Intake & Output 11/11/24 11/12/24 11/12/24 18:59 06:59 18:59 Output Total 600 Balance -600 Weight 37.1 kg Output: Urine 600 Other: Voiding Method Indwelling Catheter Toilet # Voids 1 - Labs CBC & Chem 7: 11/12/24 06:23 11/12/24 06:23 Labs: Abnormal Lab Results - Last 24 Hours (Table) 11/11/24 11/12/24 Range/Units 10:55 06:23 Sodium 134 L (137-145) mmol/L BUN 33 H 32 H (7-17) mg/dL Glucose 140 H (74-99) mg/dL ALT 36 H 36 H (4-34) U/L Total Protein 6.2 L 5.6 L (6.3-8.2) g/dL Albumin 3.3 L (3.5-5.0) g/dL
[2024-11-13 08:41] VITALS: RESP 16; TEMP 97.6
--- NOTE | 2024-11-13 10:25 | US ---
EXAMINATION TYPE: US arterial LE single level DATE OF EXAM: 11/13/2024 10:14 AM COMPARISONS: CTA CLINICAL INDICATION: Female, 83 years old with history of PAD, AAA occlusion; Leg pain, abnormal CT TECHNIQUE: Systolic pressures were taken of the upper and lower extremity arteries with ankle-brachia l indices and toe brachial indices calculated bilaterally. FINDINGS: Doppler Waveforms: Right: Left: Brachial Artery systolic pressure: Right: 128 Left: Deferred due to IV Posterior Tibial artery systolic pressure: Right: Unable to obtain audible waveform to obtain pressure Left: Unable to obtain audible waveform to obtain pressure Dorsalis Pedis artery systolic pressure: Right: Unable to obtain audible waveform to obtain pressure Left: Unable to obtain audible waveform to obtain pressure Toe artery systolic pressure: Right: Unable to obtain audible waveform to obtain pressure Left: Unable to obtain audible waveform to obtain pressure Ankle-Brachial Indices: Right: Unable to obtain audible waveform to obtain ALFIE Left: Unable to obtain audible waveform to obtain ALFIE Toe Brachial Indices: Right: Unable to obtain waveform to obtain TBI Left: Unable to obtain waveform to obtain TBI (Normal > 0.6; Mild 0.35 - 0.59, Moderate 0.12 - 0.34, Severe <0.12) IMPRESSION: Nondiagnostic exam due to inability to obtain pressures [facility], , 11/13/2024 10:22 AM
--- NOTE | 2024-11-13 10:51 | P.DS ---
Providers Date of admission: 11/06/24 07:54 Expected date of discharge: 11/13/24 Attending physician: Jeaneth Kothari MD Consults: 11/06/24 07:54 Consult Physician Routine Consulting Provider: [facility] Consult Reason/Comments: Acute pulmonary edema Do you want consulting provider notified?: Yes 11/11/24 13:18 Consult Physician Routine Consulting Provider: Nelly Delvalle Consult Reason/Comments: Infrarenal AAA with occlusion Do you want consulting provider notified?: Yes Primary care physician: Kai Williamson Hospital Course: Discharge Diagnosis: NSTEMI Acute systolic CHF exacerbation Cardiomyopathy with EF 20-25%. Infrarenal AAA with occlusion Left-sided subclavian stenosis Hypertension Hyperlipidemia Left bundle branch block, previously known Depression Hospital course: Patient is a pleasant 83-year-old female with a past medical history of hypertension, PAD, and depression.. She presented to the emergency department on 11/06/2024 with a chief complaint of shortness of breath. Upon arrival to our facility, patient underwent evaluation in the emergency department. Vital signs upon arrival show blood pressure 113/69, heart rate 71, respiratory rate 18, and SpO2 of 93% on room air. 97.4 F. EKG completed showing normal sinus rhythm with a left bundle branch block at 90 bpm T wave inversion in lateral leads I, aVL, V5 and V6. Chest x-ray completed showing bibasilar airspace opacities with mild cardiomegaly and pulmonary vascular congestion concerning for CHF. Labs completed and reviewed. CBC unremarkable. BMP showing mild hyponatremia with sodium of 134 and hypocarbia with bicarb of 18 and anion gap also elevated at 13. BUN 31, creatinine 0.94, GFR of 56. Blood glucose 146. Magnesium slightly low at 1.6. Liver profile unremarkable. Troponin 0.013. Patient admitted under our services with consultation to cardiology. Troponins trended throughout the night resulting in 0.013, 0.130, and 0.257. Echocardiogram was completed showing a severely reduced EF of 20 to 25% with global hypokinesis, mild to moderate mitral regurgitation, and mild tricuspid regurgitation. Patient was taken for cardiac cath on 11/10/2024 which revealed an infrarenal AAA with occlusion, bilateral renal arteries, low normal left-sided filling pressures, and mild 10% circumflex and 10% LAD stenosis. Cardiology recommending aggressive risk factor modification and stating symptoms concerning for flash pulmonary edema possibly related to renal artery stenosis. CTA showing occlusion of the abdominal aortic aneurysm contrast within vessels not clearly identified within the major vessels beyond the occluded aneurysm, dense extensive vascular calcification limits evaluation of subtle contrast reconstitution of vessels within the pelvis and lower extremities.CTA showing occlusion of the abdominal aortic aneurysm contrast within vessels not clearly identified within the major vessels beyond the occluded aneurysm, dense extensive vascular calcification limits evaluation of subtle contrast reconsti tution of vessels within the pelvis and lower extremities. Was also found to have blood pressure in left upper extremity 65/41 with blood pressure in right upper extremity of 107/64. Vascular surgery reporting that patient has known left sided subclavian stenosis. Vascular surgeon discussed surgical options with patient including axillary bifemoral bypass, open aortobifem bypass and patient stating she does not want to undergo any surgeries at this time and requesting discharge and states she will further discuss with her family and follow-up with vascular surgeon outpatient after personal time to discuss with family. Patient free from any complaints at this time and is medically optimized for discharge. Patient to follow-up outpatient with PCP in 1 to 2 days and with vascular surgeon in 1 week. Patient discharged home with [facility] services. Physical exam: Vital signs reviewed and stable. General: Nontoxic, no distress and appears stated age. Derm: Skin warm and dry, normal coloration for ethnicity. Head: Atraumatic, normocephalic and symmetric. Eyes: EOM's intact, no lid lag, and anicteric sclera Mouth: no lip lesions, mucus membranes moist Cardiovascular: regular rate and rhythm with normal S1S2, systolic murmur, and cap refill slightly delayed around 4 seconds in bilateral lower extremities. Lungs: Respirations even, regular, and unlabored on room air. Lungs CTA bilaterally, no rhonchi, no rales, no wheezing, and no accessory muscle usage. Abdominal: soft, nontender to palpation, no guarding, no appreciable organomegaly Ext: ROM intact. No gross muscle atrophy, no edema, no contractures Neuro: Speech clear, face symmetrical and CN II-XII grossly intact with no noted focal neuro deficits Psych: Alert and oriented to person, place, time, and situation. Appropriate and pleasant affect. A total of 39 minutes of time were spent preparing this complex discharge summar y. Pt was discharged on 11/13/2024 at 10:49 AM. Patient was seen independently by Nurse Practitioner. This document was prepared using [employer] dictation software. Please allow for errors in application services manager while rare they do occur. Sabas Muse NP rendered care for this patient independently, reviewed the findings and plan as documented in the note above. I did not physically speak with or examine the patient on this date. Patient Condition at Discharge: Stable Plan - Discharge Summary Discharge Rx Participant: No New Discharge Prescriptions: New Spironolactone [Aldactone] 12.5 mg PO DAILY 30 Days #30 tab Furosemide [Lasix] 20 mg PO DAILY 30 Days #30 tab Sacubitril/Valsartan [Entresto 24 mg-26 mg Tablet] 1 each PO BID 30 Days #60 tab Continue Aspirin 81 mg PO DAILY cilostazoL [Pletal] 50 mg PO DAILY Metoprolol Tartrate [Lopressor] 25 mg PO BID Simvastatin [Zocor] 40 mg PO HS Rivaroxaban [Xarelto] 2.5 mg PO BID Escitalopram Oxalate [Lexapro] 10 mg PO DAILY Discontinued Lisinopril [Prinivil] 5 mg PO DAILY Discharge Medication List Aspirin 81 mg PO DAILY 07/14/14 [History] Rivaroxaban [Xarelto] 2.5 mg PO BID 01/05/23 [History] Simvastatin [Zocor] 40 mg PO HS 01/05/23 [History] cilostazoL [Pletal] 50 mg PO DAILY 01/05/23 [History] Escitalopram Oxalate [Lexapro] 10 mg PO DAILY 11/06/24 [History] Metoprolol Tartrate [Lopressor] 25 mg PO BID 11/06/24 [History] Furosemide [Lasix] 20 mg PO DAILY 30 Days #30 tab 11/13/24 [Rx] Sacubitril/Valsartan [Entresto 24 mg-26 mg Tablet] 1 each PO BID 30 Days #60 tab 11/13/24 [Rx] Spironolactone [Aldactone] 12.5 mg PO DAILY 30 Days #30 tab 11/13/24 [Rx] Follow up Appointment(s)/Referral(s): Kai Williamson DO [Primary Care Provider] - 1-2 days (Please call to schedule follow up appoitment) Nelly Delvalle DO [STAFF PHYSICIAN] - 1 Week (Unable to reach office staff. Please call to schedule follow up appoitment) J[facility], [NON-STAFF] - Patient Instructions/Handouts: *Surgery [facility] - After Heart Catheterization - Power Regulator Instructions Activity/Diet/Wound Care/Special Instructions: Activity: As tolerated. Take breaks as needed. Diet: Heart healthy and carb consistent diet. Avoid salts, or foods with hidden salts such as canned or boxed foods and frozen dinners. Extra salt makes your heart work harder and traps the fluid in your body for longer. Special Instructions: Take all of your medications as directed and remember to keep all of your doctor's appointments and follow-up as needed. Thank you for allowing us to participate in your care, it was truly a pleasure having you for our patient!!! Discharge/Stand Alone Forms: Who Do I Call? Discharge Disposition: HOME WITH HOME HEALTH SERVICES
--- NOTE | 2024-11-13 11:20 | P.PN ---
Subjective Progress Note Date: 11/13/24 Principal diagnosis: AAA with occlusion, peripheral arterial disease Patient seen and examined today as a follow-up. No acute changes through the night. Patient states she is having some loose bowels but no significant abdominal pain or pain into her back. She denies any shortness of breath or chest pain. Continues with her chronic lower extremity pain especially with walking. Objective - Vital Signs Vital signs: Vital Signs Temp 97.6 F 11/13/24 08:40 Pulse 96 11/13/24 08:40 Resp 16 11/13/24 08:40 BP 128/67 11/13/24 08:40 Pulse Ox 98 11/13/24 08:40 FiO2 45 11/07/24 15:25 Intake & Output 11/12/24 11/13/24 11/13/24 18:59 06:59 18:59 Intake Total 138 20 Balance 138 20 Weight 38.4 kg Intake: IV 20 20 Invasive Line 2 20 20 Oral 118 Other: Voiding Method Toilet Toilet # Voids 1 1 1 # Bowel Movements 2 - Exam General appearance: The patient is alert, oriented, appears in no acute distress. HET: Head is normocephalic and atraumatic. Neck: Supple. Heart: Regular. Lungs: Equal expansion, normal respiratory effort. Abdomen: Soft, nontender, nondistended. Extremities: Normal skin color and turgor. Palpable bilateral radial pulses. Nonpalpable DP and PT pulses. Sensorimotor intact. Feet cool to the touch but adequate capillary refill. Full range of motion. Neurological: No focal deficits. Alert and oriented. - Labs CBC & Chem 7: 11/12/24 06:23 11/12/24 06:23 Assessment and Plan Assessment: 1. Abdominal aortic aneurysm occlusion 2. Bilateral lower extremity peripheral arterial disease with claudication 3. Shortness of breath 4. Previous known history of abdominal aortic aneurysm 5. History of hypertension 6. Subclavian stenosis Plan: CT angiogram reviewed. Possible surgical options discussed with patient including axillary bifemoral bypass, open aortobifem bypass however patient poor candidate for this surgical procedure. There is no urgency to any surgical intervention. Arterial ultrasound of bilateral lower extremities ordered. Recommend outpatient follow-up with Dr. Delvalle in the office for further discussion of possible surgical intervention iversus medical therapy. Thank you for this consultation, patient is cleared from vascular surgery for discharge. The impression and plan of care has been dictated as directed. Dr. Donald I performed a history and examination of this patient, discussed the same with the dictator. I agree with the dictator's note ,documented as a scribe. Any additional findings or plans will be noted.
[2024-11-13 12:10] VITALS: BMI 16.5
[2024-11-13 12:19] VITALS: BP 110/54; PULSE 84
--- NOTE | 2024-11-13 22:32 | PN ---
PROGRESS NOTE SUBJECTIVE: Debby is an 83-year-old lady, who presented to hospital with congestive heart failure and underwent cardiac catheterization that did not reveal significant obstructive CAD, has severe peripheral vascular disease and had been evaluated by a vascular surgeon. She had an abdominal aortic aneurysm and aortic occlusion. OBJECTIVE: GENERAL: Comfortable at rest. VITAL SIGNS: Stable. CHEST: Reveals good air entry bilaterally. HEART: Reveals first and second heart sounds. No gallop. No murmur. ABDOMEN: Soft. EXTREMITIES: Did not reveal any edema. Peripheral pulses are felt. LABORATORY DATA: Labs show a hemoglobin of 12.8, but platelet count is 157. Potassium is 3.7, creatinine is 0.9. ASSESSMENT: 1. Cardiomyopathy. 2. Hypertension. 3. Dyslipidemia. 4. Peripheral arterial disease. 5. Abdominal aortic aneurysm. PLAN: Continue current medications including aspirin, Lipitor, Lasix, Lopressor and Xarelto along with Entresto and Aldactone. The patient will be followed up on discharge by Dr. Parr. MMODL / IJN: [id number] /
== END 2024-11-13 13:24 | disposition home health service (06) | DRG 280 ==
LOC: EC 05:14 → 3SCARD 07:54
PROVIDERS: ADMIT Internal Medicine; ATTEND Internal Medicine
PROC: B2111ZZ Fluoroscopy of Multiple Coronary Arteries using Low Osmolar Contrast (ICD-10-PCS; principal; 2024-11-10 07:30)
PROC: B3101ZZ Fluoroscopy of Thoracic Aorta using Low Osmolar Contrast (ICD-10-PCS; principal; 2024-11-10 07:30)
PROC: 4A023N7 Measurement of Cardiac Sampling and Pressure, Left Heart, Percutaneous Approach (ICD-10-PCS; principal; 2024-11-10 07:30)
DX: I11.0 Hypertensive heart disease with heart failure (principal); I50.23 Acute on chronic systolic (congestive) heart failure; I21.4 Non-ST elevation (NSTEMI) myocardial infarction; E44.0 Moderate protein-calorie malnutrition; E87.3 Alkalosis; E87.1 Hypo-osmolality and hyponatremia; I73.9 Peripheral vascular disease, unspecified; J44.9 Chronic obstructive pulmonary disease, unspecified; F32.A Depression, unspecified; I34.0 Nonrheumatic mitral (valve) insufficiency; N17.9 Acute kidney failure, unspecified; Z68.1 Body mass index [BMI] 19.9 or less, adult; I71.43 Infrarenal abdominal aortic aneurysm, without rupture; I70.8 Atherosclerosis of other arteries; I77.1 Stricture of artery; G89.29 Other chronic pain; I42.8 Other cardiomyopathies; I25.10 Atherosclerotic heart disease of native coronary artery without angina pectoris; E87.6 Hypokalemia; E83.42 Hypomagnesemia; I95.9 Hypotension, unspecified; T50.1X5A Adverse effect of loop [high-ceiling] diuretics, initial encounter; E78.5 Hyperlipidemia, unspecified; I44.7 Left bundle-branch block, unspecified; M81.0 Age-related osteoporosis without current pathological fracture; H91.90 Unspecified hearing loss, unspecified ear; F41.9 Anxiety disorder, unspecified; Z79.01 Long term (current) use of anticoagulants; Z79.82 Long term (current) use of aspirin; Z79.02 Long term (current) use of antithrombotics/antiplatelets; Z79.899 Other long term (current) drug therapy; Z87.891 Personal history of nicotine dependence
CPT/HCPCS: 36415; 71045; 75625; 75635; 80048; 80053; 83735; 83880; 84484; 85025; 85027; 85610; 85730; 87636; 93005; 93306; 93458; 93922; 93975; 94640; 94660; 96361; 96365; 96366; 96375; 99285

== ENCOUNTER 2024-12-23 10:15 | Observation (INO) | payer MEDICARE, MEDICAID ==
--- NOTE | 2024-12-23 11:13 | ED ---
Weakness HPI - General Chief complaint: Weakness Stated complaint: failure to thrive Time Seen by Provider: 12/23/24 11:14 Source: patient, family, RN notes reviewed Mode of arrival: EMS Limitations: no limitations - History of Present Illness Initial comments: 84-year-old female presenting for rectal bleeding x 3 days. Patient's daughter is at bedside who provides most of history. Patient reports painless bright red blood in stool for the past several days. Denies abdominal pain. Daughter reports patient lives with her and has become increasingly weak over the past several days. She is having difficulty ambulating due to generalized weakness. She also has chronic bilateral leg pain due to "vascular issues" and patient has not been able to eat much due to the pain. She does take Xarelto. Denies chest pain or shortness of breath. - Related Data Home Medications Medication Instructions Recorded Confirmed Aspirin 81 mg PO DAILY 07/14/14 12/23/24 Rivaroxaban [Xarelto] 2.5 mg PO BID 01/05/23 12/23/24 Simvastatin [Zocor] 40 mg PO HS 01/05/23 12/23/24 cilostazoL [Pletal] 50 mg PO DAILY 01/05/23 12/23/24 Metoprolol Tartrate [Lopressor] 25 mg PO BID 11/06/24 12/23/24 Gabapentin 600 mg PO TID 12/23/24 12/23/24 HYDROcodone/APAP 10-325MG [[place] 1 tab PO TID 12/23/24 12/23/24 10-325] Sacubitril/Valsartan [Entresto 24 1 tab PO BID 12/23/24 12/23/24 mg-26 mg Tablet] Previous Rx's Medication Instructions Recorded Furosemide [Lasix] 20 mg PO DAILY 30 Days #30 tab 11/13/24 Spironolactone [Aldactone] 12.5 mg PO DAILY 30 Days #30 tab 11/13/24 Allergies Allergy/AdvReac Type Severity Reaction Status Date / Time No Known Allergies Allergy Verified 12/23/24 11:21 Review of Systems ROS Statement: Those systems with pertinent positive or pertinent negative responses have been documented in the HPI. ROS Other: All systems not noted in ROS Statement are negative. Past Medical History Past Medical History: Hearing Disorder / Deafness, Hypertension Additional Past Medical History / Comment(s): Osteoporosis History of Any Multi-Drug Resistant Organisms: None Reported Past Surgical History: Bowel Resection, Section, Orthopedic Surgery Additional Past Surgical History / Comment(s): L elbow surgery. COLONOSCOPY Past Anesthesia/Blood Transfusion Reactions: Previous Problems w/ Anesthesia, Postoperative Nausea & Vomiting (PONV) Additional Past Anesthesia/Blood Transfusion Reaction / Comment(s): HYPER FEELING AFTER SURGERY SOMETIMES WITH ANESTHESIA Past Psychological History: No Psychological Hx Reported Smoking Status: Former smoker Past Alcohol Use History: None Reported Past Drug Use History: None Reported - Past Family History Father History Unknown: Yes Family Medical History: Cancer Mother History Unknown: Yes Family Medical History: No Reported History General Exam Limitations: no limitations General appearance: alert, in no apparent distress Head exam: Present: atraumatic, normocephalic, normal inspection ENT exam: Present: normal exam, mucous membranes moist Respiratory exam: Present: normal lung sounds bilaterally. Absent: respiratory distress, wheezes, rales, rhonchi, stridor Cardiovascular Exam: Present: regular rate, normal rhythm, normal heart sounds. Absent: systolic murmur, diastolic murmur, rubs, gallop, clicks GI/Abdominal exam: Present: soft, normal bowel sounds. Absent: distended, tenderness, guarding, rebound, rigid Rectal exam: Present: other (gi tech present for rectal examination. There is gross blood present on glove with internal hemorrhoids palpated. No sign of strangulated hemorrhoids) Extremities exam: Present: normal inspection, full ROM, normal capillary refill, other (DP pulses present and equal bilaterally). Absent: tenderness, pedal edema, joint swelling, calf tenderness Neurological exam: Present: alert, oriented X3 Psychiatric exam: Present: normal affect, normal mood Skin exam: Present: warm, dry, intact, normal color. Absent: rash Course Vital Signs 12/23/24 12/23/24 12/23/24 10:24 11:40 14:50 Temperature 97.7 F 97.4 F L 98.4 F Pulse Rate 99 94 89 Respiratory 20 16 14 Rate Blood Pressure 116/69 136/78 119/65 O2 Sat by Pulse 99 100 98 Oximetry 12/23/24 18:04 Temperature 98.5 F Pulse Rate 110 H Respiratory 16 Rate Blood Pressure 114/63 O2 Sat by Pulse 99 Oximetry EKG Findings - EKG Results: EKG: interpreted by ERMD (EKG reveals left bundle branch block no change from previous EKG. Ventricular rate 91 bpm, FL interval 193, QRS duration 153, QT/QTc 423/472) Medical Decision Making - Medical Decision Making Was pt. sent in by a medical professional or institution (CARLI Van, [employer], urgent care, hospital, or senior care...) When possible be specific @ -No Did you speak to anyone other than the patient for history (EMS, parent, family, police, friend...)? What history was obtained from this source @ -Patient's daughter supplemented history Did you review nursing and triage notes (agree or disagree)? Why? @ -I reviewed and agree with nursing and triage notes Were old charts reviewed (outside hosp., previous admission, EMS record, old EKG, old radiological studies, urgent care reports/EKG's, senior care records)? Report findings @ -Previous lab work reviewed which revealed hemoglobin 12.9 2 months ago Differential Diagnosis (chest pain, altered mental status, abdominal pain women, abdominal pain men, vaginal bleeding, weakness, fever, dyspnea, syncope, headache, dizziness, GI bleed, back pain, seizure, CVA, palpatations, mental health, musculoskeletal)? @ -Differential GI Bleed: Esophageal varices, aortoenteric fistula, Luiza-Malin, gastritis, peptic ulcer disease, diverticulosis, inflammatory bowel disease, hemorrhoids, fissure, colitis, malignancy, Meckel's diverticulum, this is not meant to be an all- inclusive list. EKG interpreted by me (3pts min.). @ -As above X-rays interpreted by me (1pt min.). @ -None done CT interpreted by me (1pt min.). @ -None done U/S interpreted by me (1pt. min.). @ -None done What testing was considered but not performed or refused? (CT, X-rays, U/S, labs)? Why? @ -CT deferred due to no abdominal pain or tenderness What meds were considered but not given or refused? Why? @ -None Did you discuss the management of the patient with other professionals (professionals i.e. CARLI Van, [employer]PERATOR HELPER, lab, RT, psych nurse, school social worker, head of marketing adometry, teacher, special police officer, case management rn)? Give summary @ -I spoke with Dr. Adan who accepts admission for GI bleed Was smoking cessation discussed for >3mins.? @ -No Was critical care preformed (if so, how long)? @ -No Were there social determinants of health that impacted care today? How? (Homelessness, low income, unemployed, alcoholism, drug addiction, transportation, low edu. Level, literacy, decrease access to med. care, [facility], rehab)? @ -No Was there de-escalation of care discussed even if they declined (Discuss DNR or withdrawal of care, Hospice)? DNR status @ -No What co-morbidities impacted this encounter? (DM, HTN, Smoking, COPD, CAD, Cancer, CVA, ARF, Chemo, Hep., AIDS, mental health diagnosis, sleep apnea, morbid obesity)? @ -None Was patient admitted / discharged? Hospital course, mention meds given and route, prescriptions, significant lab abnormalities, going to OR and other p ertinent info. @ -Admitted. 84-year-old female presenting for rectal bleeding x 3 days with generalized weakness. No abdominal pain or chest pain. Vital signs within acceptable limits. Lab work remarkable for hemoglobin of 10 change from recent value of 12.9 previously. Bright red blood present on glove during rectal examination. Patient had bout of bright red blood in the stool while in the ER. Due to recent drop in hemoglobin with generalized weakness, and given that patient is on Xarelto, patient will be admitted to medicine with GI consult. Case was discussed with the ED attending Dr. Butler. Undiagnosed new problem with uncertain prognosis? @ -No Drug Therapy requiring intensive monitoring for toxicity (Heparin, Nitro, Insulin, Cardizem)? @ -No Were any procedures done? @ -No Diagnosis/symptom? @ -GI bleed Acute, or Chronic, or Acute on Chronic? @ -Acute Uncomplicated (without systemic symptoms) or Complicated (systemic symptoms)? @ -Complicated Side effects of treatment? @ -No Exacerbation, Progression, or Severe Exacerbation? @ -No Poses a threat to life or bodily function? How? (Chest pain, [place], [place], pneumonia, PE, COPD, DKA, ARF, appy, cholecystitis, CVA, Diverticulitis, Homicidal, Suicidal, threat to staff... and all critical care pts) @ -Possibly - Lab Data Result diagrams: 12/23/24 11:27 12/23/24 11:27 Lab Results 12/23/24 12/23/24 12/23/24 Range/Units 11:27 11:27 11:27 WBC 9.7 (3.8-10.6) k/uL RBC 3.47 L (3.80-5.40) m/uL Hgb 10.1 L (11.4-16.0) gm/dL Hct 32.2 L (34.0-46.0) % MCV 92.7 (80.0-100.0) fL MCH 29.2 (25.0-35.0) pg MCHC 31.5 (31.0-37.0) g/dL RDW 14.9 (11.5-15.5) % Plt Count 258 (150-450) k/uL MPV 8.0 Neutrophils % 80 % Lymphocytes % 9 % Monocytes % 8 % Eosinophils % 1 % Basophils % 0 % Neutrophils # 7.7 (1.3-7.7) k/uL Lymphocytes # 0.8 L (1.0-4.8) k/uL Monocytes # 0.8 (0-1.0) k/uL Eosinophils # 0.1 (0-0.7) k/uL Basophils # 0.0 (0-0.2) k/uL PT (10.0-12.5) sec INR (<1.2) APTT (22.0-30.0) sec Sodium 130 L (137-145) mmol/L Potassium 4.1 (3.5-5.1) mmol/L Chloride 98 (98-107) mmol/L Carbon Dioxide 23 (22-30) mmol/L Anion Gap 9 mmol/L BUN 45 H (7-17) mg/dL Creatinine 0.98 (0.52-1.04) mg/dL Est GFR (CKD-EPI)AfAm 61 (>60 ml/min/1.73 sqM) Est GFR (CKD-EPI)NonAf 53 (>60 ml/min/1.73 sqM) Glucose 97 (74-99) mg/dL Lactic Ac Sepsis Rflx Plasma Lactic Acid Lee 2.1 H* (0.7-2.0) mmol/L Calcium 8.1 L (8.4-10.2) mg/dL Total Bilirubin 0.4 (0.2-1.3) mg/dL AST 36 (14-36) U/L ALT 22 (4-34) U/L Alkaline Phosphatase 69 (38-126) U/L Troponin I (0.000-0.034) ng/mL Total Protein 5.5 L (6.3-8.2) g/dL Albumin 3.2 L (3.5-5.0) g/dL Urine Color Urine Appearance (Clear) Urine pH (5.0-8.0) Ur Specific Dennis (1.001-1.035) Urine Protein (Negative) Urine Glucose (UA) (Negative) Urine Ketones (Negative) Urine Blood (Negative) Urine Nitrite (Negative) Urine Bilirubin (Negative) Urine Urobilinogen (<2.0) mg/dL Ur Leukocyte Esterase (Negative) Urine RBC (0-5) /hpf Urine WBC (0-5) /hpf Ur Squamous Epith Cells (0-4) /hpf Urine Bacteria (None) /hpf Urine Mucus (None) /hpf 12/23/24 12/23/24 12/23/24 Range/Units 11:27 12:32 12:33 WBC (3.8-10.6) k/uL RBC (3.80-5.40) m/uL Hgb (11.4-16.0) gm/dL Hct (34.0-46.0) % MCV (80.0-100.0) fL MCH (25.0-35.0) pg MCHC (31.0-37.0) g/dL RDW (11.5-15.5) % Plt Count (150-450) k/uL MPV Neutrophils % % Lymphocytes % % Monocytes % % Eosinophils % % Basophils % % Neutrophils # (1.3-7.7) k/uL Lymphocytes # (1.0-4.8) k/uL Monocytes # (0-1.0) k/uL Eosinophils # (0-0.7) k/uL Basophils # (0-0.2) k/uL PT 13.3 H (10.0-12.5) sec INR 1.2 H (<1.2) APTT 21.1 L (22.0-30.0) sec Sodium (137-145) mmol/L Potassium (3.5-5.1) mmol/L Chloride (98-107) mmol/L Carbon Dioxide (22-30) mmol/L Anion Gap mmol/L BUN (7-17) mg/dL Creatinine (0.52-1.04) mg/dL Est GFR (CKD-EPI)AfAm (>60 ml/min/1.73 sqM) Est GFR (CKD-EPI)NonAf (>60 ml/min/1.73 sqM) Glucose (74-99) mg/dL Lactic Ac Sepsis Rflx Y Plasma Lactic Acid Lee (0.7-2.0) mmol/L Calcium (8.4-10.2) mg/dL Total Bilirubin (0.2-1.3) mg/dL AST (14-36) U/L ALT (4-34) U/L Alkaline Phosphatase (38-126) U/L Troponin I 0.013 (0.000-0.034) ng/mL Total Protein (6.3-8.2) g/dL Albumin (3.5-5.0) g/dL Urine Color Urine Appearance (Clear) Urine pH (5.0-8.0) Ur Specific [place] (1.001-1.035) Urine Protein (Negative) Urine Glucose (UA) (Negative) Urine Ketones (Negative) Urine Blood (Negative) Urine Nitrite (Negative) Urine Bilirubin (Negative) Urine Urobilinogen (<2.0) mg/dL Ur Leukocyte Esterase (Negative) Urine RBC (0-5) /hpf Urine WBC (0-5) /hpf Ur Squamous Epith Cells (0-4) /hpf Urine Bacteria (None) /hpf Urine Mucus (None) /hpf 12/23/24 Range/Units 12:49 WBC (3.8-10.6) k/uL RBC (3.80-5.40) m/uL Hgb (11.4-16.0) gm/dL Hct (34.0-46.0) % MCV (80.0-100.0) fL MCH (25.0-35.0) pg MCHC (31.0-37.0) g/dL RDW (11.5-15.5) % Plt Count (150-450) k/uL MPV Neutrophils % % Lymphocytes % % Monocytes % % Eosinophils % % Basophils % % Neutrophils # (1.3-7.7) k/uL Lymphocytes # (1.0-4.8) k/uL Monocytes # (0-1.0) k/uL Eosinophils # (0-0.7) k/uL Basophils # (0-0.2) k/uL PT (10.0-12.5) sec INR (<1.2) APTT (22.0-30.0) sec Sodium (137-145) mmol/L Potassium (3.5-5.1) mmol/L Chloride (98-107) mmol/L Carbon Dioxide (22-30) mmol/L Anion Gap mmol/L BUN (7-17) mg/dL Creatinine (0.52-1.04) mg/dL Est GFR (CKD-EPI)AfAm (>60 ml/min/1.73 sqM) Est GFR (CKD-EPI)NonAf (>60 ml/min/1.73 sqM) Glucose (74-99) mg/dL Lactic Ac Sepsis Rflx Plasma Lactic Acid Lee (0.7-2.0) mmol/L Calcium (8.4-10.2) mg/dL Total Bilirubin (0.2-1.3) mg/dL AST (14-36) U/L ALT (4-34) U/L Alkaline Phosphatase (38-126) U/L Troponin I (0.000-0.034) ng/mL Total Protein (6.3-8.2) g/dL Albumin (3.5-5.0) g/dL Urine Color Colorless Urine Appearance Clear (Clear) Urine pH 6.0 (5.0-8.0) Ur Specific [place] 1.010 (1.001-1.035) Urine Protein Trace H (Negative) Urine Glucose (UA) Negative (Negative) Urine Ketones Negative (Negative) Urine Blood Negative (Negative) Urine Nitrite Negative (Negative) Urine Bilirubin Negative (Negative) Urine Urobilinogen <2.0 (<2.0) mg/dL Ur Leukocyte Esterase Small H (Negative) Urine RBC <1 (0-5) /hpf Urine WBC 10 H (0-5) /hpf Ur Squamous Epith Cells 1 (0-4) /hpf Urine Bacteria Rare H (None) /hpf Urine Mucus Rare H (None) /hpf Disposition Clinical Impression: Lower GI bleed Disposition: ADMITTED IP TO THIS [facility] Time of Disposition: 14:37
[2024-12-23] MEDS: SODIUM CHLORIDE 0.9% 500 ML 500 ML IV STA (11:31)
[2024-12-23] MEDS: GABAPENTIN 300 MG CAP PO STA (11:34)
[2024-12-23] MEDS: HYDROcodone/APAP 5-325MG 1 EACH TAB PO STA (11:34)
[2024-12-23 12:06] LABS: Basophils % (A) 0 %; Eosinophils # (A) 0.1 k/uL (0-0.7); Eosinophils % (A) 1 %; HCT 32.2 % (34.0-46.0); HGB 10.1 gm/dL (11.4-16.0); Lymphocytes # (A) 0.8 k/uL (1.0-4.8); Lymphocytes % (A) 9 %; MCH 29.2 pg (25.0-35.0); MCHC 31.5 g/dL (31.0-37.0); MCV 92.7 fL (80.0-100.0); Monocytes # (A) 0.8 k/uL (0-1.0); Monocytes % (A) 8 %; Neutrophils # (A) 7.7 k/uL (1.3-7.7); Neutrophils % (A) 80 %; Platelet Count 258 k/uL (150-450); RBC 3.47 m/uL (3.80-5.40); RDW 14.9 % (11.5-15.5); WBC 9.7 k/uL (3.8-10.6)
[2024-12-23 12:14] LABS: ALT 22 U/L (4-34); AST 36 U/L (14-36); African American GFR (CKD) 61 (>60 ml/min/1.73 sqM); Albumin 3.2 g/dL (3.5-5.0); Alkaline Phosphatase 69 U/L (38-126); Anion Gap 9 mmol/L; Blood Urea Nitrogen 45 mg/dL (7-17); Calcium 8.1 mg/dL (8.4-10.2); Carbon Dioxide 23 mmol/L (22-30); Chloride 98 mmol/L (98-107); Glucose 97 mg/dL (74-99); Non-African American GFR(CKD) 53 (>60 ml/min/1.73 sqM); Potassium 4.1 mmol/L (3.5-5.1); Sodium 130 mmol/L (137-145); Total Bilirubin 0.4 mg/dL (0.2-1.3); Total Protein 5.5 g/dL (6.3-8.2)
[2024-12-23 12:59] LABS: INR 1.2 (<1.2); Prothrombin Time 13.3 sec (10.0-12.5)
[2024-12-23] MEDS: ACETAMINOPHEN TAB 325 MG TAB PO STA (13:06)
[2024-12-23 13:10] LABS: Partial Thromboplastin Time 21.1 sec (22.0-30.0)
[2024-12-23 13:15] LABS: Appearance,Urine Clear (Clear); Bacteria,Urine Rare /hpf; Bilirubin,Urine Negative (Negative); Blood,Urine Negative (Negative); Color,Urine Colorless; Glucose,Urine (UA) Negative (Negative); Ketones,Urine Negative (Negative); Leukocyte Esterase,Urine Small (Negative); Mucus,Urine Rare /hpf; Nitrite,Urine Negative (Negative); Protein,Urine Trace (Negative); RBC,Urine <1 /hpf (0-5); Squamous Epithelial Cell,Urine 1 /hpf (0-4); Urobilinogen,Urine <2.0 mg/dL (<2.0); WBC,Urine 10 /hpf (0-5)
[2024-12-23] MEDS ORDERED: NALOXONE 0.4 MG/ML 1 ML VIAL IV PRN (14:35)
[2024-12-23] MEDS: HYDROcodone/APAP 5-325MG 1 EACH TAB PO PRN (18:06)
--- NOTE | 2024-12-23 18:10 | P.HPIM ---
History of Present Illness H&P Date: 12/23/24 84 year old F with PMH of CHF EF 20-25%, A-Fib, AAA occlusion presents to the ED for BRBPR. Patient is unreliable historian and her only current complaint is burning in both of her legs which she attributes to her PAD. She denies any abnormal pain. No changes in bowel habits or urination. No changes in appetite. In the ED she underwent extensive evaluation. BP 116/69, RR 20, HR 99, T 97.7F, 99% on RA. CBC, Coag panel, CMP significant for RBC 3.47, Hg 10.1, Hct 32.2, PT 13.3, INR 1.2, APTT 21.1, Na 130, BUN 45, Ca 8.1, alb 3.2. Trop 0.013. Lactic acid 2.1-0.8. UA small LE. EKG sinus rhythm with LBBB. Admitted for lower GI bleed and GI consultation. General: non toxic, no distress, appears at stated age Derm: warm, dry Head: atraumatic, normocephalic, symmetric Eyes: EOMI, no lid lag, anicteric sclera Mouth: no lip lesion, mucus membranes moist Cardiovascular: S1S2 reg, no murmur Lungs: Decreased BS bilateral, no rhonchi, no rales , no accessory muscle use Ext: no gross muscle atrophy, no edema, no contractures Neuro: no focal neuro deficits Psych: Alert, oriented, appropriate affect Based on my assessment of this patient, this patient meets a high complexity level of care. Acute lower GI bleed: Hold ASA, Pletal, Xarelto. Monitor Hg. Consult GI. Lactic acidosis likely related to above Prerenal azotemia likely related to above CHF EF 20-25%: Metoprolol 25 mg PO BID. Entresto 24-26 mg PO BID. Aldactone 12.5 mg PO QD. Echo shows EF 20-25%. PAD and history of AAA occlusion: Holding ASA, cilostazol and Xarelto. Outpatient Vascular Sx follow up. HTN: Metoprolol, Entresto and Aldactone as above. CODE STATUS: FULL CODE DVT Prophylaxis: SCD GI Prophylaxis: Designated medical POA if patient is not able to make medical decisions for themselves: Daughter I have reviewed the following professional housing consultant notes: ED note. I have reviewed the results of the following tests: As above. I have ordered the following tests: As above. I have discussed the care of this patient with the following independent historian: I have independently interpreted the following test below: EKG I have discussed the management of this patient with the following physician: Past Medical History Past Medical History: Hearing Disorder / Deafness, Hypertension Additional Past Medical History / Comment(s): Osteoporosis History of Any Multi-Drug Resistant Organisms: None Reported Past Surgical History: Bowel Resection, Section, Orthopedic Surgery Additional Past Surgical History / Comment(s): L elbow surgery. COLONOSCOPY Past Anesthesia/Blood Transfusion Reactions: Previous Problems w/ Anesthesia, Postoperative Nausea & Vomiting (PONV) Additional Past Anesthesia/Blood Transfusion Reaction / Comment(s): HYPER FEELING AFTER SURGERY SOMETIMES WITH ANESTHESIA Past Psychological History: No Psychological Hx Reported Smoking Status: Former smoker Past Alcohol Use History: None Reported Past Drug Use History: None Reported - Past Family History Father History Unknown: Yes Family Medical History: Cancer Mother History Unknown: Yes Family Medical History: No Reported History Medications and Allergies Home Medications Medication Instructions Recorded Confirmed Type Aspirin 81 mg PO DAILY 07/14/14 12/23/24 History Rivaroxaban [Xarelto] 2.5 mg PO BID 01/05/23 12/23/24 History Simvastatin [Zocor] 40 mg PO HS 01/05/23 12/23/24 History cilostazoL [Pletal] 50 mg PO DAILY 01/05/23 12/23/24 History Metoprolol Tartrate [Lopressor] 25 mg PO BID 11/06/24 12/23/24 History Furosemide [Lasix] 20 mg PO DAILY 30 Days #30 tab 11/13/24 12/23/24 Rx Spironolactone [Aldactone] 12.5 mg PO DAILY 30 Days #30 tab 11/13/24 12/23/24 Rx Gabapentin 600 mg PO TID 12/23/24 12/23/24 History HYDROcodone/APAP 10-325MG [[place] 1 tab PO TID 12/23/24 12/23/24 History 10-325] Sacubitril/Valsartan [Entresto 24 1 tab PO BID 12/23/24 12/23/24 History mg-26 mg Tablet] Allergies Allergy/AdvReac Type Severity Reaction Status Date / Time No Known Allergies Allergy Verified 12/23/24 11:21 Physical Exam Vitals: Vital Signs Temp Pulse Resp BP Pulse Ox 12/23/24 14:50 98.4 F 89 14 119/65 98 12/23/24 11:40 97.4 F L 94 16 136/78 100 12/23/24 10:24 97.7 F 99 20 116/69 99 Intake and Output 12/23/24 12/23/24 12/23/24 06:59 14:59 22:59 Other: Weight 38.102 kg Results CBC & Chem 7: 12/23/24 11:27 12/23/24 11:27 Labs: Abnormal Lab Results - Last 24 Hours (Table) 12/23/24 12/23/24 12/23/24 Range/Units 11:27 11:27 11:27 RBC 3.47 L (3.80-5.40) m/uL Hgb 10.1 L (11.4-16.0) gm/dL Hct 32.2 L (34.0-46.0) % Lymphocytes # 0.8 L (1.0-4.8) k/uL PT (10.0-12.5) sec INR (<1.2) APTT (22.0-30.0) sec Sodium 130 L (137-145) mmol/L BUN 45 H (7-17) mg/dL Plasma Lactic Acid Lee 2.1 H* (0.7-2.0) mmol/L Calcium 8.1 L (8.4-10.2) mg/dL Total Protein 5.5 L (6.3-8.2) g/dL Albumin 3.2 L (3.5-5.0) g/dL Urine Protein (Negative) Ur Leukocyte Esterase (Negative) Urine WBC (0-5) /hpf Urine Bacteria (None) /hpf Urine Mucus (None) /hpf 12/23/24 12/23/24 Range/Units 12:32 12:49 RBC (3.80-5.40) m/uL Hgb (11.4-16.0) gm/dL Hct (34.0-46.0) % Lymphocytes # (1.0-4.8) k/uL PT 13.3 H (10.0-12.5) sec INR 1.2 H (<1.2) APTT 21.1 L (22.0-30.0) sec Sodium (137-145) mmol/L BUN (7-17) mg/dL Plasma Lactic Acid Lee (0.7-2.0) mmol/L Calcium (8.4-10.2) mg/dL Total Protein (6.3-8.2) g/dL Albumin (3.5-5.0) g/dL Urine Protein Trace H (Negative) Ur Leukocyte Esterase Small H (Negative) Urine WBC 10 H (0-5) /hpf Urine Bacteria Rare H (None) /hpf Urine Mucus Rare H (None) /hpf
[2024-12-23] MEDS: HYDROcodone/APAP 10-325MG 1 EACH TAB PO SCH (21:03)
[2024-12-23] MEDS: GABAPENTIN 300 MG CAP PO SCH (21:04)
[2024-12-23] MEDS: SACUBITRIL/VALSARTAN 24 MG-26 MG TABLET PO SCH (21:04)
[2024-12-23] MEDS: ATORVASTATIN 20 MG TAB PO SCH (21:04)
[2024-12-23] MEDS: METOPROLOL TARTRATE 25 MG TAB PO SCH (21:04)
[2024-12-24] MEDS: ACETAMINOPHEN TAB 325 MG TAB PO PRN (05:52)
[2024-12-24 07:29] VITALS: RESP 18
[2024-12-24] MEDS: SPIRONOLACTONE 25 MG TAB PO SCH (09:14)
[2024-12-24] MEDS: FUROSEMIDE 20 MG TAB PO SCH (09:15)
[2024-12-24 11:44] LABS: HCT 31.8 % (34.0-46.0); HGB 9.8 gm/dL (11.4-16.0); Hypochromasia Slight; MCH 28.9 pg (25.0-35.0); MCHC 30.8 g/dL (31.0-37.0); MCV 93.9 fL (80.0-100.0); Platelet Count 262 k/uL (150-450); RBC 3.39 m/uL (3.80-5.40); WBC 9.3 k/uL (3.8-10.6)
--- NOTE | 2024-12-24 13:51 | P.CONS ---
History of Present Illness - Reason for Consult Consult date: 12/24/24 Lower GI bleed Requesting physician: Zoya Guajardo - Chief Complaint Weakness - History of Present Illness This is a pleasant 84-year-old female who presented to the emergency department with complaints of generalized weakness and apparently has been having some blood mixed with bowel movements over the last few months duration with a history of hemorrhoids. Patient states that she was recently hospitalized and since that discharge overall she has just had generalized weakness and really has not bounced back. She has a history of abdominal aortic occlusion and foll ows with vascular surgeon from [facility] with lower extremity claudication, hard of hearing and hypertension with history of bowel resection however patient is poor historian and unable to tell me what it was related to but states she was 68 years old at the time. She states that she has mixed stool either constipation and hard or she will have loose stools. States that she has little bit of rectal bleeding and/or blood mixed with her stool with bowel movements but not every bowel movement which she attributes to hemorrhoids. Last colonoscopy found was in [address] Das with findings of 2 small polypoid areas in proximal and distal right colon status post biopsy and diverticulosis of the colon with no evidence of acute diverticulitis or strictures with recommendation of repeat colonoscopy in 3 to 5 years. Pathology with findings of distal right colon biopsy serrated polyp the differential includes hyperplastic polyp and serrated adenoma, proximal right colon fragments of serrated adenoma She denies any abdominal pain, nausea or vomiting. States she probably is not eating as well as she should be. She is on Xarelto and aspirin for peripheral arterial disease and AAA occlusion as well as Pletal for claudication. Hemoglobin on admission was 12.9 with a repeat hemoglobin today at 10.1 Review of Systems REVIEW OF SYSTEMS: CARDIOPULMONARY: No chest pain or shortness of breath. Gastrointestinal: No abdominal pain. No nausea or vomiting. No hematemesis, coffee-ground emesis. Bright red blood mixed with stool. Patient has in termittent constipation and hard stool versus loose stool. GENITOURINARY: No dysuria or hematuria. MUSCULOSKELETAL: Reports normal range of motion. Lower extremity claudication. SKIN: No rashes. No jaundice. ENDOCRINE: No chills, fevers. No excessive weight gain or loss. No polydipsia or polyuria. PSYCHIATRIC: Unremarkable. NEUROLOGY: No change in mental status. Denies dizziness, headache. ENT: Vision unremarkable. CONSTITUTIONAL: No recent weight loss. No fever, chills, night sweats. Past Medical History Past Medical History: Atrial Fibrillation, Heart Failure, Hearing Disorder / Deafness, Hyperlipidemia, Hypertension, Vascular Disorder Additional Past Medical History / Comment(s): Osteoporosis, PVD History of Any Multi-Drug Resistant Organisms: None Reported Past Surgical History: Bowel Resection, Section, Heart Catheterization, Orthopedic Surgery Additional Past Surgical History / Comment(s): L elbow surgery. COLONOSCOPY Past Anesthesia/Blood Transfusion Reactions: Previous Problems w/ Anesthesia, P ostoperative Nausea & Vomiting (PONV) Additional Past Anesthesia/Blood Transfusion Reaction / Comm: HYPER FEELING AFTER SURGERY SOMETIMES WITH ANESTHESIA Smoking Status: Former smoker - Past Family History Father History Unknown: Yes Family Medical History: Cancer Mother History Unknown: Yes Family Medical History: No Reported History Medications and Allergies Home Medications Medication Instructions Recorded Confirmed Type Aspirin 81 mg PO DAILY 07/14/14 12/23/24 History Rivaroxaban [Xarelto] 2.5 mg PO BID 01/05/23 12/23/24 History Simvastatin [Zocor] 40 mg PO HS 01/05/23 12/23/24 History cilostazoL [Pletal] 50 mg PO DAILY 01/05/23 12/23/24 History Metoprolol Tartrate [Lopressor] 25 mg PO BID 11/06/24 12/23/24 History Furosemide [Lasix] 20 mg PO DAILY 30 Days #30 tab 11/13/24 12/23/24 Rx Spironolactone [Aldactone] 12.5 mg PO DAILY 30 Days #30 tab 11/13/24 12/23/24 Rx Gabapentin 600 mg PO TID 12/23/24 12/23/24 History HYDROcodone/APAP 10-325MG [[place] 1 tab PO TID 12/23/24 12/23/24 History 10-325] Sacubitril/Valsartan [Entresto 24 1 tab PO BID 12/23/24 12/23/24 History mg-26 mg Tablet] Allergies Allergy/AdvReac Type Severity Reaction Status Date / Time No Known Allergies Allergy Verified 12/23/24 11:21 Physical Exam Vitals: Vital Signs Temp Pulse Pulse Resp BP BP Pulse Ox 12/24/24 07:25 98.1 F 96 18 108/59 96 12/24/24 04:05 104 H 14 99/55 97 12/24/24 02:00 108 H 13 130/78 92 L 12/24/24 00:30 96 16 136/73 92 L 12/23/24 21:54 83 16 111/63 94 L 12/23/24 20:43 97.5 F L 108 H 18 120/67 98 12/23/24 18:04 98.5 F 110 H 16 114/63 99 12/23/24 14:50 98.4 F 89 14 119/65 98 12/23/24 11:40 97.4 F L 94 16 136/78 100 12/23/24 10:24 97.7 F 99 20 116/69 99 Intake and Output 12/23/24 12/24/24 12/24/24 22:59 06:59 14:59 Other: Voiding Method Toilet # Voids 1 # Bowel Movements 1 Weight 38.102 kg General appearance: The patient is alert, oriented, appears in no acute distr ess. HET: Head is normocephalic and atraumatic. Conjunctiva pink. Sclera anicteric. Neck: Supple without lymphadenopathy. Trachea midline. Heart: Regular. Lungs: Equal expansion, normal respiratory effort. Abdomen: Soft, thin, nontender, nondistended. Rectum: No external hemorrhoids noted. No rectal bleeding noted. Skin: No rashes. No jaundice. Extremities: Normal skin color and turgor. Lower extremity swelling. Neurological: No focal deficits. Alert and oriented x3. Results CBC & Chem 7: 12/24/24 11:24 12/23/24 11:27 Labs: Abnormal Lab Results - Last 24 Hours (Table) 12/23/24 12/23/24 12/23/24 Range/Units 11:27 11:27 11:27 RBC 3.47 L (3.80-5.40) m/uL Hgb 10.1 L (11.4-16.0) gm/dL Hct 32.2 L (34.0-46.0) % Lymphocytes # 0.8 L (1.0-4.8) k/uL PT (10.0-12.5) sec INR (<1.2) APTT (22.0-30.0) sec Sodium 130 L (137-145) mmol/L BUN 45 H (7-17) mg/dL Plasma Lactic Acid Lee 2.1 H* (0.7-2.0) mmol/L Calcium 8.1 L (8.4-10.2) mg/dL Total Protein 5.5 L (6.3-8.2) g/dL Albumin 3.2 L (3.5-5.0) g/dL Urine Protein (Negative) Ur Leukocyte Esterase (Negative) Urine WBC (0-5) /hpf Urine Bacteria (None) /hpf Urine Mucus (None) /hpf 12/23/24 12/23/24 Range/Units 12:32 12:49 RBC (3.80-5.40) m/uL Hgb (11.4-16.0) gm/dL Hct (34.0-46.0) % Lymphocytes # (1.0-4.8) k/uL PT 13.3 H (10.0-12.5) sec INR 1.2 H (<1.2) APTT 21.1 L (22.0-30.0) sec Sodium (137-145) mmol/L BUN (7-17) mg/dL Plasma Lactic Acid Lee (0.7-2.0) mmol/L Calcium (8.4-10.2) mg/dL Total Protein (6.3-8.2) g/dL Albumin (3.5-5.0) g/dL Urine Protein Trace H (Negative) Ur Leukocyte Esterase Small H (Negative) Urine WBC 10 H (0-5) /hpf Urine Bacteria Rare H (None) /hpf Urine Mucus Rare H (None) /hpf Assessment and Plan (1) Lower GI bleed Narrative/Plan: 84-year-old female presenting with generalized weakness since her previous recent hospitalization. Patient has peripheral arterial disease and abdominal aortic aneurysm who is on stopped aspirin and Xarelto as well as Pletal. Her daughter brought her in for concerns of the weakness and reported blood mixed with stool. This has been ongoing for several months possibly secondary to hemorrhoidal bleeding. However patient does have history of bowel resection secondary to unknown etiology. Bleeding is intermittent with bowel movements with mixed constipation versus loose stools. Likely bleeding secondary to hemorrhoid or possible fissure. Last colonoscopy in 2014 with findings of colon polyps status post polypectomy and diverticulosis. Likely dealing with bleeding from hemorrhoid. Patient is not had any further bleeding and further discussing with patient this has been ongoing for months to years and is intermittent with small amounts. No need for colonoscopy at this time. Current Visit: Yes Status: Acute Code(s): K92.2 - GASTROINTESTINAL HEMORRHAGE, UNSPECIFIED SNOMED Code(s): 26877060 (2) Weakness Current Visit: Yes Status: Acute Code(s): R53.1 - WEAKNESS SNOMED Code(s): 98536277 (3) AAA (abdominal aortic aneurysm) Current Visit: No Status: Acute Code(s): I71.40 - ABDOMINAL AORTIC ANEURYSM, WITHOUT RUPTURE, UNSPECIFIED SNOMED Code(s): 224319712 (4) PAD (peripheral artery disease) Current Visit: No Status: Acute Code(s): I73.9 - PERIPHERAL VASCULAR DISEASE, UNSPECIFIED SNOMED Code(s): 699212938 Plan: 1. Continue symptomatic and supportive care 2. Patient may have clear liquid diet 3. May resume anticoagulation 4. Daily CBC, transfuse for hemoglobin less than 7 5. Continue to monitor for rectal bleeding 6. No plans on colonoscopy Thank you for this consultation, patient is cleared from gastroenterology for discharge Dr. Claudio Sun I agree with the dictator's note, documented as a scribe by Avelina Page.
[2024-12-24 15:03] VITALS: BP 113/65; PULSE 84; TEMP 98.2
--- NOTE | 2024-12-24 15:23 | P.DS ---
Providers Date of admission: 12/23/24 14:13 Expected date of discharge: 12/24/24 Attending physician: Iglesia Adan Consults: 12/23/24 14:35 Consult Physician Urgent Consulting Provider: Sonia Sun Consult Reason/Comments: Lower GI bleed Do you want consulting provider notified?: Yes Primary care physician: [facility] Course: 84 year old F with PMH of CHF EF 20-25%, A-Fib, AAA occlusion presents to the ED for BRBPR. Patient is unreliable historian and her only current complaint is burning in both of her legs which she attributes to her PAD. She denies any abnormal pain. No changes in bowel habits or urination. No changes in appetite. In the ED she underwent extensive evaluation. BP 116/69, RR 20, HR 99, T 97.7F, 99% on RA. CBC, Coag panel, CMP significant for RBC 3.47, Hg 10.1, Hct 32.2, PT 13.3, INR 1.2, APTT 21.1, Na 130, BUN 45, Ca 8.1, alb 3.2. Trop 0.013. Lactic acid 2.1-0.8. UA small LE. EKG sinus rhythm with LBBB. Admitted for lower GI b leed and GI consultation. 12/24 Patient was seen and examined. Daughter at bedside. Had a regular BM today. Discussed with daughter, patient and Avelina RN FIRST ASSISTANT. Patient is high risk for anesthesia at this time and it would be beneficial to avoid any procedures at this time. Hg is stable at 9.8 today. Her Gabapentin and [place] was recently increased with regard to neuropathic pain in her legs. Patient states she is comfortable going home with her daughter. Discharge Plan: Follow up with PCP within 1-2 days of discharge. Follow up with GI and Vascular Sx within 1 week of discharge. Restart ASA, Pletal and Xarelto at this time. General: non toxic, no distress, appears at stated age Derm: warm, dry Head: atraumatic, normocephalic, symmetric Eyes: EOMI, no lid lag, anicteric sclera Mouth: no lip lesion, mucus membranes moist Cardiovascular: S1S2 reg, no murmur Lungs: Decreased BS bilateral, no rhonchi, no rales , no accessory muscle use Ext: no gross muscle atrophy, no edema, no contractures Neuro: no focal neuro deficits Psych: Alert, oriented, appropriate affect Discharge Diagnosis: Acute lower GI bleed Lactic acidosis likely related to above Prerenal azotemia likely related to above CHF EF 20-25% PAD and history of AAA occlusion HTN This complex discharge took 35 minutes to complete. Patient Condition at Discharge: Stable Plan - Discharge Summary Discharge Rx Participant: No New Discharge Prescriptions: Continue Aspirin 81 mg PO DAILY cilostazoL [Pletal] 50 mg PO DAILY Metoprolol Tartrate [Lopressor] 25 mg PO BID Spironolactone [Aldactone] 12.5 mg PO DAILY 30 Days #30 tab Furosemide [Lasix] 20 mg PO DAILY 30 Days #30 tab Gabapentin 600 mg PO TID HYDROcodone/APAP 10-325MG [[place] 10-325] 1 tab PO TID Simvastatin [Zocor] 40 mg PO HS Rivaroxaban [Xarelto] 2.5 mg PO BID Sacubitril/Valsartan [Entresto 24 mg-26 mg Tablet] 1 tab PO BID Discharge Medication List Aspirin 81 mg PO DAILY 07/14/14 [History] Rivaroxaban [Xarelto] 2.5 mg PO BID 01/05/23 [History] Simvastatin [Zocor] 40 mg PO HS 01/05/23 [History] cilostazoL [Pletal] 50 mg PO DAILY 01/05/23 [History] Metoprolol Tartrate [Lopressor] 25 mg PO BID 11/06/24 [History] Furosemide [Lasix] 20 mg PO DAILY 30 Days #30 tab 11/13/24 [Rx] Spironolactone [Aldactone] 12.5 mg PO DAILY 30 Days #30 tab 11/13/24 [Rx] Gabapentin 600 mg PO TID 12/23/24 [History] HYDROcodone/APAP 10-325MG [[place] 10-325] 1 tab PO TID 12/23/24 [History] Sacubitril/Valsartan [Entresto 24 mg-26 mg Tablet] 1 tab PO BID 12/23/24 [History] Follow up Appointment(s)/Referral(s): Sergey Becerra DO [STAFF PHYSICIAN] - 1 Week Kai Williamson DO [Primary Care Provider] - 1-2 days Snoia uSn MD [STAFF PHYSICIAN] [facility] - Discharge Disposition: HOME SELF-CARE
== END 2024-12-24 19:00 | disposition home or self-care (01) ==
LOC: EC 10:15 → 1SOBS 14:13 → 3SCARD 17:06
PROVIDERS: ADMIT Student in an Organized Health Care Education/Training Program; ATTEND Student in an Organized Health Care Education/Training Program
DX: K62.5 Hemorrhage of anus and rectum (principal); R53.1 Weakness; E87.20 Acidosis, unspecified; R79.89 Other specified abnormal findings of blood chemistry; I11.0 Hypertensive heart disease with heart failure; I50.9 Heart failure, unspecified; E78.5 Hyperlipidemia, unspecified; I48.91 Unspecified atrial fibrillation; I71.40 Abdominal aortic aneurysm, without rupture, unspecified; I73.9 Peripheral vascular disease, unspecified; M81.0 Age-related osteoporosis without current pathological fracture; Z79.01 Long term (current) use of anticoagulants; Z79.02 Long term (current) use of antithrombotics/antiplatelets; Z79.82 Long term (current) use of aspirin; Z79.899 Other long term (current) drug therapy; Z86.0100 Personal history of colon polyps, unspecified; Z87.891 Personal history of nicotine dependence; Z79.891 Long term (current) use of opiate analgesic
CPT/HCPCS: 96360; 99285; 36415; 93005; 80053; 83605; 84484; 85025; 85027; 85610; 85730; 81001; G0378 ×2